=== PATIENT | male | born 1955 | race Native Hawaiian/Other Pacific Islander ===

== ENCOUNTER 2016-05-21 07:08 | Emergency (ER) | payer MEDICARE, OTHER ==
[~2016-05-21] VITALS: Ht 185.4 cm; Wt 137.3 kg
[~2016-05-21 07:08] MED LIST: ACYCLOVIR400 MG PO; AMBIEN 5MG TABLE5 MG PO; AMLODIPINE5 MG PO; ASPIRIN 32325 MG/TAB PO; ASPIRIN E.C. 8181 MG PO; CALCIUM 600600 M2; CALCIUM500 MG PO; CARDI-OMEGA1000 MG PO; CELLCEPT 250MG250 MG PO; CELLCEPT250 MG PO; CORDARONE200 MG/TAB PO; COREG 25MG25 MG/TAB PO; COREG 6.256.25 MG/TA PO; COZAAR 50MG50 MG/TAB PO; COZAAR100 MG PO; DUO-KAPS1 CAP PO; FERATE27 MG PO; FERROUS SU325 MG/TAB PO; FOLIC ACID 11 MG/TA1 PO; GABAPENTIN100 M1 PO; GENGRAF100 MG PO; GENGRAF25 MG PO; INSPRA25 MG PO; LANTUS100 U/ML; LANTUS100 U/ML SC; LANTUS100 U/ML SQ; LASIX 20MG TABL20 MG PO; LASIX 40MG TABL40 MG PO; LEVEMIR SQ; LEVEMIR100 U/ML SC; LIPITOR 10MG10 MG PO; MEXITIL 150MG150 MG PO; MVI; NEORAL100 MG/ML PO; NEORAL25 MG PO; NEPHROCAP PO; NORCO 325 MG-51 TAB PO; NORVASC 5MG5 MG/TAB PO; NOVOLOG 100U100 U/M1 SC; NOVOLOG 100U100 U/M1 SQ; NOVOLOG100 U/ML IV; OMEPRAZOLE D/R20 MG PO; PERCOCET 325 MG1 TA2 PO; PERCOCET 5/321 UDTAB PO; PRAVACHOL 20MG20 MG PO; PRILOSEC 20MG20 MG PO; PROTONIX 40MG T40 MG PO; SINGULAIR 110 MG/TAB PO; VITAMIN C PUR1000 MG PO; VITAMIN C500 MG PO; VITAMIN COMPLEX1 TA1 PO; VITAMIN D; VITAMIN D31000 I1 PO; ZYLOPRIM 100MG100 MG PO; [UNRECOGNIZED DRUG - OTHER]; d3; folic acid; novolog
[2016-05-21 07:12] VITALS: TEMP 98.3
[2016-05-21] MEDS ORDERED: PERCOCET 325 MG1 TA2 PO (09:26)
[2016-05-21 09:31] VITALS: BP 172/91; PULSE 62
== END 2016-05-21 09:53 | disposition home or self-care (01) ==
LOC: COL.ER 07:08
DX: S82.092A Other fracture of left patella, initial encounter for closed fracture (principal); S01.81XA Laceration without foreign body of other part of head, initial encounter; S00.83XA Contusion of other part of head, initial encounter; S80.01XA Contusion of right knee, initial encounter; W01.0XXA Fall on same level from slipping, tripping and stumbling without subsequent striking against object, initial encounter; E11.22 Type 2 diabetes mellitus with diabetic chronic kidney disease; N18.6 End stage renal disease; Z99.2 Dependence on renal dialysis; Z94.0 Kidney transplant status; Z79.4 Long term (current) use of insulin

== ENCOUNTER 2016-05-27 14:29 | Emergency (ER) | payer MEDICARE, OTHER ==
[2016-05-27 14:34] VITALS: BP 141/70; PULSE 66; TEMP 98.3
== END 2016-05-27 15:03 | disposition home or self-care (01) ==
LOC: COL.ER 14:29
DX: Z48.02 Encounter for removal of sutures (principal)

== ENCOUNTER 2019-01-14 16:23 | Emergency (ER) | payer MEDICARE, OTHER ==
[~2019-01-14] VITALS: Ht 185.4 cm; Wt 128.6 kg
[2019-01-14 16:35] VITALS: TEMP 98.5
[2019-01-14 17:23] LABS: HEMOGLOBIN 10.8 g/dl (13.5-18.0); MEAN CELL VOLUME 85 fl (80.0-100.0); MEAN CORPUSCULAR HEMOGLOBIN 26 pg (27.0-31.0); MEAN CORPUSCULAR HGB CONC 31 g/dl (33.0-37.0); MEAN PLATELET VOLUME 9.8 fl (7.4-10.4); PLATELET COUNT 184 K/mm3 (130-400); RED BLOOD COUNT 4.13 M/mm3 (4.20-5.60); REDCELL DISTRIBUTION WIDTH-CV 14.9 % (11.5-14.5)
[2019-01-14 17:29] LABS: HEMATOCRIT 35.2 % (42.0-52.0)
[2019-01-14 17:33] LABS: ALBUMIN 3.7 gm/dL (3.5-5.0); BILIRUBIN,TOTAL 0.6 mg/dL (0.0-1.0); CALCIUM 8.8 mg/dL (8.4-10.2); CREATININE, serum 2.41 (0.66-1.25); POTASSIUM 5.5 mmol/L (3.4-5.0); TOTAL PROTEIN 6.8 gm/dL (6.4-8.2)
[2019-01-14 17:44] LABS: LYMPHOCYTE 8 % (20.0-51.0); NEUTROPHILS 89 % (42.0-75.2); PLATELET ESTIMATE NORMAL (NORMAL)
[2019-01-14 20:27] LABS: CALCIUM 8.7 mg/dL (8.4-10.2); CREATININE, serum 2.45 (0.66-1.25); POTASSIUM 5.6 mmol/L (3.4-5.0)
[2019-01-14 21:07] VITALS: BP 147/63; PULSE 60
== END 2019-01-14 21:07 | disposition short-term general hospital (02) ==
LOC: COL.ER 16:23
PROVIDERS: Family Medicine
DX: R00.1 Bradycardia, unspecified (principal); R55 Syncope and collapse; E11.22 Type 2 diabetes mellitus with diabetic chronic kidney disease; I12.0 Hypertensive chronic kidney disease with stage 5 chronic kidney disease or end stage renal disease; N18.6 End stage renal disease; Z79.82 Long term (current) use of aspirin; Z79.4 Long term (current) use of insulin
CPT/HCPCS: J7030

== ENCOUNTER → 2019-09-16 | Outpatient (CLI) | payer MEDICARE, OTHER | LOC: COL.VAS 10:48 | DX: I10 Essential (primary) hypertension (principal); R60.0 Localized edema; I34.0 Nonrheumatic mitral (valve) insufficiency; I31.3 Pericardial effusion (noninflammatory) ==

== ENCOUNTER 2020-05-27 11:04 | Emergency (ER) | payer MEDICARE, OTHER ==
[~2020-05-27] VITALS: Ht 185.4 cm; Wt 123.6 kg
[~2020-05-27 11:04] MED LIST changes: +LEVEMIR100 U/ML SQ; +NEURONTIN100 MG/CAP; +PREDNISONE 5MG5 MG PO; +PROGRAF 1MG1 MG PO; +PROGRAF5 MG PO; +SEPTRA 400 MG-1 TAB PO; +VELTASSA8.4 GM PO; +ZORTRESS0.5 MG PO
[2020-05-27 11:31] LABS: BASO % 0.1 % (0.0-2.0); EOS % 0.2 % (0-4.0); GRAN # 7.4 (1.4-6.5); GRAN % 86.1 % (42.2-75.2); HEMATOCRIT 28.3 % (42.0-52.0); HEMOGLOBIN 8.7 g/dl (13.5-18.0); LYMPH # 0.4 (1.2-3.4); LYMPH % 4.7 % (20.0-51.0); MEAN CELL VOLUME 79 fl (80.0-100.0); MEAN CORPUSCULAR HEMOGLOBIN 24 pg (27.0-31.0); MEAN CORPUSCULAR HGB CONC 31 g/dl (33.0-37.0); MEAN PLATELET VOLUME 9.4 fl (7.4-10.4); MONO # 0.7 (0.1-0.6); MONO % 7.9 % (1.7-9.3); PLATELET COUNT 202 K/mm3 (130-400); RED BLOOD COUNT 3.57 M/mm3 (4.20-5.60); REDCELL DISTRIBUTION WIDTH-CV 18.5 % (11.5-14.5)
[2020-05-27 11:37] LABS: ALBUMIN 3.6 gm/dL (3.5-5.0); BILIRUBIN,TOTAL 0.5 mg/dL (0.0-1.0); CALCIUM 8.7 mg/dL (8.4-10.2); CREATININE, serum 4.3 (0.66-1.25); POTASSIUM 4.2 mmol/L (3.4-5.0); TOTAL PROTEIN 6.7 gm/dL (6.4-8.2)
[2020-05-27 13:12] LABS: COLLECTION METHOD CLEAN CATCH
[2020-05-27 13:18] LABS: MUCOUS Present /lpf; PH 5 (5-8); SQUAMOUS EPITHELIAL 0-2 /hpf; URINE APPEARANCE Hazy; URINE BACTERIA None Seen /hpf; URINE BILIRUBIN Negative (NEGATIVE); URINE BLOOD Negative (NEGATIVE); URINE COLOR Yellow; URINE GLUCOSE Negative (NEGATIVE); URINE KETONE Negative (NEGATIVE); URINE LEUKOCYTE ESTERASE Negative (NEGATIVE); URINE NITRATE Negative (NEGATIVE); URINE PROTEIN(semi-quant) Negative (NEGATIVE); URINE RBC 0-2 /hpf; URINE UROBILINOGEN Negative (NEGATIVE)
[2020-05-27 16:48] VITALS: BP 138/69; PULSE 55; TEMP 98
== END 2020-05-27 17:11 | disposition short-term general hospital (02) ==
LOC: COL.ER 11:04
PROVIDERS: Emergency Medicine
DX: N17.9 Acute kidney failure, unspecified (principal); D64.9 Anemia, unspecified; R50.9 Fever, unspecified; I10 Essential (primary) hypertension; E11.649 Type 2 diabetes mellitus with hypoglycemia without coma; Z20.822 Contact with and (suspected) exposure to COVID-19; Z94.0 Kidney transplant status; Z87.891 Personal history of nicotine dependence; Z88.5 Allergy status to narcotic agent; Z88.8 Allergy status to other drugs, medicaments and biological substances; Z98.61 Coronary angioplasty status; Z79.82 Long term (current) use of aspirin; Z79.4 Long term (current) use of insulin
CPT/HCPCS: J2543; J7030

== ENCOUNTER 2020-06-07 12:43 | Inpatient (IN) | payer MEDICARE, OTHER ==
[~2020-06-07] VITALS: Ht 185.4 cm; Wt 125.8 kg
[~2020-06-07 12:43] MED LIST changes: -NEURONTIN100 MG/CAP; +NEURONTIN100 MG/CAP PO
[2020-06-07 14:16] LABS: MEAN CELL VOLUME 80 fl (80.0-100.0); MEAN CORPUSCULAR HGB CONC 31 g/dl (33.0-37.0); MEAN PLATELET VOLUME 8.7 fl (7.4-10.4); PLATELET COUNT 166 K/mm3 (130-400); RED BLOOD COUNT 3.76 M/mm3 (4.20-5.60); REDCELL DISTRIBUTION WIDTH-CV 18.3 % (11.5-14.5)
[2020-06-07 14:20] LABS: HEMATOCRIT 30.1 % (42.0-52.0); HEMOGLOBIN 9.2 g/dl (13.5-18.0); MEAN CORPUSCULAR HEMOGLOBIN 24 pg (27.0-31.0)
[2020-06-07 14:21] LABS: ALBUMIN 3.7 gm/dL (3.5-5.0); BILIRUBIN,TOTAL 0.6 mg/dL (0.0-1.0); CALCIUM 8.7 mg/dL (8.4-10.2); CREATININE, serum 4.45 (0.66-1.25); POTASSIUM 4.7 mmol/L (3.4-5.0); TOTAL PROTEIN 6.8 gm/dL (6.4-8.2)
[2020-06-07 14:55] LABS: ANISOCYTOSIS 1+; BAND 45 % (0-10); LYMPHOCYTE 8 % (20.0-51.0); NEUTROPHILS 47 % (42.0-75.2); PLATELET ESTIMATE NORMAL (NORMAL)
[2020-06-07 14:56] LABS: OVALOCYTES 1+; SCHISTOCYTES 1+
[2020-06-07] MEDS ORDERED: IRON TABLETS325 MG PO (16:00)
[2020-06-07] MEDS ORDERED: COZAAR 25MG25 MG/TAB PO (16:01)
[2020-06-07] MEDS ORDERED: SENOKOT S 50 MG1 TAB PO (16:02)
[2020-06-07] MEDS ORDERED: DITROPAN 5MG TAB5 MG PO (16:02)
[2020-06-07] MEDS ORDERED: SODIUM BICARBO650 MG PO (16:03)
[2020-06-07] MEDS ORDERED: FLOMAX 0.40.4 MG/CAP PO (16:04)
[2020-06-07] MEDS ORDERED: VELTASSA8.4 GM PO (16:05)
[2020-06-07 16:45] VITALS: BP 122/51; PULSE 85; TEMP 102.8
[2020-06-07 17:55] LABS: TROPONIN-I 0.209 ng/mL (0.000-0.035)
[2020-06-07 19:11] VITALS: BP 142/38; PULSE 88; TEMP 99.1
[2020-06-07] MEDS ORDERED: LIPITOR 10MG10 MG PO (19:32)
--- NOTE | 2020-06-07 19:41 | NUR ---
Pt admission/assessment completed as much as possible, limited physical assessment completed. pt sleeping upon arrival to room 358. Pt barely responds to verbal stimuli, mumbles and groans for responses. Unable to complete any questions on assessment. Med rec and allergies completed per [facility] discharge records from 1 week ago. Pt has RFA fistula that is present, extremity restriction enforced, LH INT IV that flushes well w/o issue. Pt on room air, breathing is even and unlabored at this time. Pt has hypoactive BS. HRRR, LS cta...as much as this nurse is able to assess. Pulses strong bilaterally, pedal pulses strong. Pt has grayish/dry BLE/intact. Bedros present to place orders and assess pt. Verbal order for tylenol 500 MG PO Q4 PRN, ACHS accu checks/Moderate sliding scale all placed. Pt has kidney rejection meds that we don't carry, order for "pt home med" placed, will bring medication to ER entrance. pt not on tele, no orders for tele at this time. Bedros informed of pt critical trop of 0.209, no new orders at this time. No further needs. Report given to ELISABETH Alcaraz.
[2020-06-07 20:28] VITALS: TEMP 102.8
--- NOTE | 2020-06-07 20:36 | NUR ---
Patient resting in bed. Incontinent of urine. Cares provided. Assessment complete. Lungs diminished throughout. Heart sounds normal. Bowels active x4. Pulses present throughout. No edema noted. INT left wrist without complications. Fistula to right forearm bruit and thrill present. Patient temp elevated and given PRN tylenol. Patient has chills at this time. Patient is drowsy but orientated x4. Bed alarm in place. Call light in reach.
[2020-06-07 20:37] VITALS: BP 125/46; PULSE 90
[2020-06-07 20:48] LABS: COLLECTION METHOD CLEAN CATCH
[2020-06-07 20:54] LABS: MUCOUS Present /lpf; PH 5 (5-8); SQUAMOUS EPITHELIAL 0-2 /hpf; URINE APPEARANCE Hazy; URINE BACTERIA None Seen /hpf; URINE BILIRUBIN Negative (NEGATIVE); URINE BLOOD 2+ (NEGATIVE); URINE COLOR Yellow; URINE GLUCOSE 2+ (NEGATIVE); URINE KETONE Negative (NEGATIVE); URINE LEUKOCYTE ESTERASE Trace (NEGATIVE); URINE NITRATE Negative (NEGATIVE); URINE PROTEIN(semi-quant) 1+ (NEGATIVE); URINE RBC 0-2 /hpf; URINE UROBILINOGEN Negative (NEGATIVE)
[2020-06-07 21:54] VITALS: TEMP 98.6
[2020-06-08] VITALS (13 sets, daily range): BP systolic 96–134; BP diastolic 34–77; PULSE 63–87; TEMP 98.1–103.2
--- NOTE | 2020-06-08 01:01 | NUR ---
Patient febrile. Given PRN tylenol at this time. Chills have returned. Will closely monitor.
--- NOTE | 2020-06-08 01:54 | NUR ---
Patient temp axillary 103.2. Covers removed. Door left open for air flow. Will reassess
--- NOTE | 2020-06-08 04:06 | NUR ---
Resting in bed. Denies needs. Call light in reach.
[2020-06-08 04:26] LABS: HYALINE CAST >12 /lpf
[2020-06-08 05:53] LABS: BASO % 0.2 % (0.0-2.0); GRAN # 9.9 (1.4-6.5); GRAN % 89.4 % (42.2-75.2); LYMPH # 0.7 (1.2-3.4); LYMPH % 6.1 % (20.0-51.0); MEAN CELL VOLUME 82 fl (80.0-100.0); MEAN CORPUSCULAR HGB CONC 30 g/dl (33.0-37.0); MONO # 0.4 (0.1-0.6); MONO % 3.5 % (1.7-9.3); PLATELET COUNT 147 K/mm3 (130-400); RED BLOOD COUNT 3.63 M/mm3 (4.20-5.60); REDCELL DISTRIBUTION WIDTH-CV 18.6 % (11.5-14.5)
[2020-06-08 05:54] LABS: HEMATOCRIT 29.6 % (42.0-52.0); HEMOGLOBIN 8.8 g/dl (13.5-18.0); MEAN CORPUSCULAR HEMOGLOBIN 24 pg (27.0-31.0)
[2020-06-08 06:05] LABS: ALBUMIN 3.6 gm/dL (3.5-5.0); CALCIUM 8.4 mg/dL (8.4-10.2); CREATININE, serum 5.63 (0.66-1.25); PHOSPHOROUS 3.4 mg/dL (2.5-4.5); POTASSIUM 4.8 mmol/L (3.4-5.0)
--- NOTE | 2020-06-08 06:19 | NUR ---
Patient febrile throughout night with chills. All measures taken to decrease temperature. (Tylenol, remove blankets, decrease room temp.) Currently resting in bed with chills. Given Tylenol and only has sheet present on bed. Patient drowsy/lethargic during night. Will continue to monitor. Bed alarm in place and call light in reach.
--- NOTE | 2020-06-08 07:06 | NUR ---
Report given to ELISABETH Freeman
[2020-06-08] MEDS ORDERED: PROGRAF 1MG1 MG PO (08:24)
--- NOTE | 2020-06-08 08:25 | NUR ---
This nurse called pt and verified meds. Updated in med rec, called pharmacy.
--- NOTE | 2020-06-08 10:16 | NUR ---
Initial visit; Patient states he is doing well and thanked Pre Sales Technical Consultant for looking in on him.
--- NOTE | 2020-06-08 12:19 | NUR ---
1000: Pt assessment completed and charted, medications administered per mar, pt very drowsy, arousable to touch and verbal stimuli. Pt falls back asleep very quickly. Pt partially oriented. Pt has RFA fistula, thrill and bruit present. LH INT IV that flushes well w/o issue. Pt on room air, breathing is even and unlabored, LS cta. Pt has very dry/grayish feet, scattered scabs to BLE, bruising to LUE, bruise to rt eye, red but blanchable coccyx. Pt requested barrier cream, applied. HRRR. pt has been running temps throughout evening and low grade temps of 99s this morning. pt has received tylenol PRN per jul for temps. pt was shivering at shift change, room was cold, pt is hot to touch, wrapped in blanket. Pulses strong bilaterally. No further needs expressed. 1215: Pt received ultram per jul for back pain. Down for dialyis at this time.
--- NOTE | 2020-06-08 15:32 | NUR ---
The patient arrived back to his room from dialysis. SW attempted to discuss discharge plan with the patient. The patient was sleeping and would not wake. SW then contacted the patient's , Jose Elias (ph#[phone]), to complete intake. The patient lives in [place] with his . Jose Elias reports that the patient was just discharged on Saturday from [facility] and returned back home with her. No home health services had been set up. She reports that the patient was needing assistance with ADLs and that he has a cane and walker. She states that she was assisting the patient with his ADLs. The patient's PCP is Dr. Cameron De La Cruz and he receives his medications from [facility]. Jose Elias reports no difficulties obtaining his meds. The patient does not have a DPOA-HC in EMR, but Jose Elias believes that the patient does have one completed and that she is the patient's DPOA-HC. Jose Elias reports that she may be interested in home health services upon discharge, but needs to find out more about what is going on with the patient and is diagnosis/prognosis. PT/OT have been ordered. SW to continue to follow.
--- NOTE | 2020-06-08 19:04 | NUR ---
Report with ELISABETH Grossman. Pt resting in bed with eyes closed, resp even and unlabored.
--- NOTE | 2020-06-08 19:10 | NUR ---
Received report from Purnima. Seen patient asleep in bed. He is on room air. Bed alarm on.
--- NOTE | 2020-06-08 20:50 | NUR ---
Patient is still asleep. Awaken him for his medicines. He complains of low back pain with pain score of 8/10. Will give Tramadol. He is too drowsy but he can answer questions.
--- NOTE | 2020-06-08 21:30 | NUR ---
Patient's called and asked for an update. Answered her questions and updated her. She states that patient is usually tired and sleepy after dialysis.
[2020-06-08 22:28] LABS: HEPATITIS B SURFACE ANTIBODY 33.7 (()); HEPATITIS B SURFACE ANTIGEN Negative (Negative); HEPATITIS C VIRUS ANTIBODY Negative (Negative)
[2020-06-09 05:13] VITALS: BP 112/57; PULSE 77; TEMP 98.9
[2020-06-09 07:56] LABS: ALBUMIN 3.3 gm/dL (3.5-5.0); CALCIUM 8.2 mg/dL (8.4-10.2); CREATININE, serum 4.89 (0.66-1.25); PHOSPHOROUS 4.1 mg/dL (2.5-4.5); POTASSIUM 4.3 mmol/L (3.4-5.0)
[2020-06-09 07:57] LABS: BASO % 0.3 % (0.0-2.0); EOS % 0.3 % (0-4.0); GRAN # 5.2 (1.4-6.5); GRAN % 82.7 % (42.2-75.2); LYMPH # 0.6 (1.2-3.4); LYMPH % 9.2 % (20.0-51.0); MEAN CELL VOLUME 80 fl (80.0-100.0); MEAN CORPUSCULAR HGB CONC 30 g/dl (33.0-37.0); MEAN PLATELET VOLUME 8.9 fl (7.4-10.4); MONO # 0.4 (0.1-0.6); MONO % 6.7 % (1.7-9.3); PLATELET COUNT 128 K/mm3 (130-400); RED BLOOD COUNT 3.48 M/mm3 (4.20-5.60); REDCELL DISTRIBUTION WIDTH-CV 18.6 % (11.5-14.5)
[2020-06-09 08:00] VITALS: BP 122/52; PULSE 70; TEMP 98.6
[2020-06-09 08:00] LABS: HEMATOCRIT 27.9 % (42.0-52.0); HEMOGLOBIN 8.4 g/dl (13.5-18.0); MEAN CORPUSCULAR HEMOGLOBIN 24 pg (27.0-31.0)
--- NOTE | 2020-06-09 08:00 | NUR ---
ASSESSED PT, VITALS TAKEN, PT REPORTING PAIN 10/10 IN LOW BACK, PT VERY DROWSY, OPENED EYES TO NAME.
--- NOTE | 2020-06-09 10:46 | NUR ---
UPDATED PT SON
--- NOTE | 2020-06-09 11:45 | NUR ---
PT RETURNED FROM DIALYSIS
[2020-06-09 12:42] VITALS: BP 113/64; PULSE 64; TEMP 97.9
--- NOTE | 2020-06-09 14:16 | NUR ---
Primary nurse was assisted with [id number] patient care by [facility] student Anahi Madrigal and [facility] instructor Archana Bell RN-.
--- NOTE | 2020-06-09 15:46 | NUR ---
PT ASKED FOR SCD'S TO BE REMOVED, PT REPORTS PAIN 4/10 IN LOW BACK/BOTTOM, PT GIVEN COVERED WITH BROWN BLANKET, PT RESTING COMFORTABLY, NO OTHER NEEDS
--- NOTE | 2020-06-09 16:29 | NUR ---
Director Internal Control spoke with SHAKIRA Madrid who would recommend SNF for patient. SW contacted patient's , Jose Elias to review this. Jose Elias states that while she may be open to this, patient has historically not thought therapy would do him any good. Jose Elias does not want referrals sent until they speak with Dr. Camarillo about this. SW will follow up during rounds tomorrow.
[2020-06-09 16:42] VITALS: BP 143/47; PULSE 62; TEMP 97.6
--- NOTE | 2020-06-09 17:54 | NUR ---
PT GENERALLY VERY DROWSY THROUGHOUT THE DAY, REPORTS PAIN IN LOWER BACK AND SACRAL AREA, NO OTHER NEEDS
--- NOTE | 2020-06-09 19:00 | NUR ---
Recieved report from [place]. Seen patient trying to sit up in bed. Assisted him to fix his bedside table so he can eat dinner. No other needs at this time. Bed alarm on.
[2020-06-09 19:28] VITALS: BP 138/48; PULSE 60; TEMP 97.8
--- NOTE | 2020-06-09 21:00 | NUR ---
Patient is drwosy and had been sleeping most of the time. He woke up to take his medicines and went back to sleep.
[2020-06-10 00:29] VITALS: BP 138/70; PULSE 57; TEMP 97.3
[2020-06-10 04:15] VITALS: BP 132/52; PULSE 62; TEMP 97.4
--- NOTE | 2020-06-10 06:03 | NUR ---
Patient has been drowsy most of the time. He wakes up for medicines and to urinate but had been sleepy all night. He denies pain right now. No other needs noted.
[2020-06-10 07:12] LABS: BASO % 0.2 % (0.0-2.0); EOS # 0.1 (0.0-0.7); EOS % 0.9 % (0-4.0); GRAN # 4.4 (1.4-6.5); GRAN % 76.3 % (42.2-75.2); LYMPH # 0.7 (1.2-3.4); LYMPH % 12.6 % (20.0-51.0); MEAN CELL VOLUME 79 fl (80.0-100.0); MEAN CORPUSCULAR HGB CONC 30 g/dl (33.0-37.0); MEAN PLATELET VOLUME 9.3 fl (7.4-10.4); MONO # 0.5 (0.1-0.6); MONO % 9.3 % (1.7-9.3); PLATELET COUNT 145 K/mm3 (130-400); RED BLOOD COUNT 3.57 M/mm3 (4.20-5.60); REDCELL DISTRIBUTION WIDTH-CV 18.1 % (11.5-14.5)
--- NOTE | 2020-06-10 07:17 | NUR ---
when giving report pt wanted to get up to the chair, 2 assist to chair with walker, when in the chair pt had episode of staring off into space, eyes tracking something on the ceiling, not answering questions, then when hand was put on shoulder and pt name was said pt would respond to you and say "i'm just sitting here". basia Grossman noted a similar event happened last night after getting on the bedside commode.
[2020-06-10 07:20] LABS: ALBUMIN 3.4 gm/dL (3.5-5.0); CALCIUM 8.5 mg/dL (8.4-10.2); CREATININE, serum 3.92 (0.66-1.25); POTASSIUM 4.4 mmol/L (3.4-5.0)
[2020-06-10 07:27] LABS: HEMATOCRIT 28.3 % (42.0-52.0); HEMOGLOBIN 8.5 g/dl (13.5-18.0); MEAN CORPUSCULAR HEMOGLOBIN 24 pg (27.0-31.0)
[2020-06-10 07:35] VITALS: BP 117/49; PULSE 68; TEMP 98.3
[2020-06-10 07:36] LABS: PHOSPHOROUS 3.1 mg/dL (2.5-4.5)
--- NOTE | 2020-06-10 08:11 | NUR ---
PT FLAT AFFECT, AOX4, UP WITH ASSSIST AND WALKER, PT TOOK MEDS, FRESH WATER BROUGHT IN, VITALS TAKEN, ASSESSMENT PERFORMED, NO OTHER NEEDS.
--- NOTE | 2020-06-10 08:50 | NUR ---
pt taken to dialysis via wheelchair w/ chart. pat informed of pt staring off in am
[2020-06-10 12:53] VITALS: BP 99/45; PULSE 66; TEMP 97.4
--- NOTE | 2020-06-10 13:00 | NUR ---
SAW LOW BP ON VITAL SET, PT DENIES DIZZINESS, APPEARS IN GOOD SPIRITS, MOST ALERT I HAVE SEEN PT TODAY
--- NOTE | 2020-06-10 14:44 | NUR ---
Java Application Engineer collaborated with Dr. Camarillo about discharge plan. Dr. Camarillo would like to have a consult for [facility]. OLU contacted Kaylynn [facility] Director to give referral. SW contacted patient's , Jose Elias to provide update. SW will continue to follow.
[2020-06-10 15:50] VITALS: BP 132/78; PULSE 66; TEMP 97.7
--- NOTE | 2020-06-10 15:54 | NUR ---
PT RETURNED FROM MRI, SLEEPING IN ROOM,
--- NOTE | 2020-06-10 16:46 | NUR ---
PT REFUSING DINNER, WILL NOT GIVE INSULIN
--- NOTE | 2020-06-10 17:26 | NUR ---
PT DROWSY, PT ANSWERS ORIENTATION QUESTIONS APPROPRIATELY, PT HAD DIALYSIS TODAY, PT STAND BY ASSIST IN THE ROOM, PT MORE CHEERFUL TODAY, PT MEDICATIONS GIVEN AND EDUCATED ON, PT REFUSING DINNER, NO OTHER NEEDS
--- NOTE | 2020-06-10 18:29 | NUR ---
PT EDUCATED ON NEED TO START 24HR URINE, CONTAINER IN ROOM
[2020-06-10 19:43] VITALS: BP 125/32; PULSE 64; TEMP 98
--- NOTE | 2020-06-10 20:45 | NUR ---
Pt 24 hour urine was started at 2030. The first void was wasted and will collect all future voids. Pt was educated about everything that we will be doing. He has his call light within reach.
[2020-06-11] VITALS (7 sets, daily range): BP systolic 128–153; BP diastolic 39–64; PULSE 55–71; TEMP 97.5–98.9
--- NOTE | 2020-06-11 | NUR ---
Pt has had no complaints during the night. Pt did get up from the bed to chair a couple of times to get comfortable. Pt did have some complaints earlier in the shift about his bottom. Barrier cream and a dressing was applied at this time and pt stated that this was much better. Pt has his call light within reach and his bed is in lowest position.
--- NOTE | 2020-06-11 06:20 | NUR ---
Pt is back in bed from his chair. Pt was reminded that whenever he uses the restroom to let us know since we are collecting his 24 hour urine. Pt has his call light within reach and has no concerns at this time.
[2020-06-11 07:44] LABS: EOS % 0.6 % (0-4.0); GRAN # 2.4 (1.4-6.5); GRAN % 73.5 % (42.2-75.2); LYMPH # 0.4 (1.2-3.4); LYMPH % 11.7 % (20.0-51.0); MEAN CELL VOLUME 81 fl (80.0-100.0); MEAN CORPUSCULAR HGB CONC 31 g/dl (33.0-37.0); MEAN PLATELET VOLUME 10.6 fl (7.4-10.4); MONO # 0.4 (0.1-0.6); PLATELET COUNT 140 K/mm3 (130-400); RED BLOOD COUNT 3.29 M/mm3 (4.20-5.60)
[2020-06-11 07:49] LABS: HEMATOCRIT 26.5 % (42.0-52.0); HEMOGLOBIN 8.1 g/dl (13.5-18.0); MEAN CORPUSCULAR HEMOGLOBIN 25 pg (27.0-31.0)
--- NOTE | 2020-06-11 08:32 | NUR ---
Pt sleeping upon entry, easily awakened. Assisted to restroom. No C/O pain at this time. Shift assessments complete, left Pt sitting in recliner, alarm on.
[2020-06-11 09:11] LABS: ALBUMIN 3.4 gm/dL (3.5-5.0); CALCIUM 8.5 mg/dL (8.4-10.2); CREATININE, serum 3.17 (0.66-1.25); PHOSPHOROUS 3.6 mg/dL (2.5-4.5); POTASSIUM 4.3 mmol/L (3.4-5.0)
[2020-06-11 20:59] LABS: CREATININE, serum 3.17 (0.66-1.25); URINE TOTAL VOLUME 650 mL
[2020-06-11 21:38] LABS: URINE CREATININE CLEARANCE 9.8 mL/min (97-137)
--- NOTE | 2020-06-11 23:00 | NUR ---
Pt is currently sleeping in bed. Pt did wake up to take night medications. Pt bottom was cleaned and barrier cream a dressing on his bottom changed. Pt stated that he has no pain at this time and no other concerns at this time. Pt has his call ligth within reach and his bed is in lowet position.
--- NOTE | 2020-06-12 02:27 | NUR ---
Pt sleeping in bed. He has his call light within reach and bed is in lowet position.
[2020-06-12 03:44] VITALS: BP 146/54; PULSE 67; TEMP 97.9
[2020-06-12 06:59] LABS: BASO % 0.3 % (0.0-2.0); EOS % 0.7 % (0-4.0); GRAN # 1.9 (1.4-6.5); GRAN % 65.5 % (42.2-75.2); LYMPH # 0.5 (1.2-3.4); LYMPH % 15.9 % (20.0-51.0); MEAN CELL VOLUME 81 fl (80.0-100.0); MEAN CORPUSCULAR HGB CONC 30 g/dl (33.0-37.0); MEAN PLATELET VOLUME 9.8 fl (7.4-10.4); MONO # 0.5 (0.1-0.6); MONO % 16.6 % (1.7-9.3); PLATELET COUNT 151 K/mm3 (130-400); RED BLOOD COUNT 3.55 M/mm3 (4.20-5.60); REDCELL DISTRIBUTION WIDTH-CV 17.6 % (11.5-14.5)
[2020-06-12 07:08] LABS: HEMATOCRIT 28.8 % (42.0-52.0); HEMOGLOBIN 8.5 g/dl (13.5-18.0); MEAN CORPUSCULAR HEMOGLOBIN 24 pg (27.0-31.0)
[2020-06-12 07:11] LABS: ALBUMIN 3.5 gm/dL (3.5-5.0); CALCIUM 8.5 mg/dL (8.4-10.2); CREATININE, serum 3.57 (0.66-1.25); POTASSIUM 4.3 mmol/L (3.4-5.0)
[2020-06-12 07:45] VITALS: BP 158/60; PULSE 76; TEMP 98.3
--- NOTE | 2020-06-12 10:47 | NUR ---
Pt awake and alert upon entry to room, in bed. No C/O pain at this time. Shift assessments complete, left Pt call light in reach, bed in lowest position.
[2020-06-12 11:27] VITALS: BP 162/55; PULSE 71; TEMP 98
[2020-06-12 17:14] VITALS: BP 92/76; PULSE 62; TEMP 97.5
[2020-06-12 17:17] VITALS: BP 143/55
[2020-06-12 19:39] VITALS: BP 134/54; PULSE 59; TEMP 97.5
--- NOTE | 2020-06-12 21:41 | NUR ---
Patient laying in bed resting upon enter the room. Patient denies pain or discomfort at this time. T-pad to his back in place. All scheduled meds given per JUL. Call light within reach. Patient denies any needs at this time.
[2020-06-13 00:22] VITALS: BP 145/60; PULSE 63; TEMP 98.2
[2020-06-13 05:17] VITALS: BP 140/52; PULSE 63; TEMP 97.4
--- NOTE | 2020-06-13 06:29 | NUR ---
Patient slept well throughout the night. No c/o pain or discomfort. No acute distress noted. Call light within reach. Patient denies any needs this morning.
--- NOTE | 2020-06-13 08:00 | NUR ---
Pt sitting up in chair, assisted with phone call, denies further needs. Call light in reach.
[2020-06-13 08:57] VITALS: BP 135/68; PULSE 70
--- NOTE | 2020-06-13 09:05 | NUR ---
Assessment complete. Pt resting in bed, drowsy but alert to stimuli, oriented x 3. Pt reports pain to low back/coccyx 8 out of 10, PRN pain medication administered per pt's request prior to goint to dialysis. Saline lock IV to left hand without s/s of complications. Slight excoriation noted to coccyx area. No further needs reported. Call light in reach.
--- NOTE | 2020-06-13 09:15 | NUR ---
Pt up to WC and taken to dialysis room accompanied by ELISABETH Ocampo.
[2020-06-13 09:37] LABS: MEAN CELL VOLUME 79 fl (80.0-100.0); MEAN CORPUSCULAR HGB CONC 30 g/dl (33.0-37.0); MEAN PLATELET VOLUME 9.3 fl (7.4-10.4); PLATELET COUNT 163 K/mm3 (130-400); RED BLOOD COUNT 3.55 M/mm3 (4.20-5.60); REDCELL DISTRIBUTION WIDTH-CV 17.6 % (11.5-14.5)
[2020-06-13 09:39] LABS: HEMOGLOBIN 8.5 g/dl (13.5-18.0); MEAN CORPUSCULAR HEMOGLOBIN 24 pg (27.0-31.0)
[2020-06-13 09:48] LABS: ALBUMIN 3.5 gm/dL (3.5-5.0); CALCIUM 8.7 mg/dL (8.4-10.2); CREATININE, serum 3.84 (0.66-1.25); PHOSPHOROUS 3.4 mg/dL (2.5-4.5); POTASSIUM 4.3 mmol/L (3.4-5.0)
[2020-06-13 10:02] LABS: BAND 1 % (0-10); LYMPHOCYTE 18 % (20.0-51.0); METAMYELOCYTE 3 % (0-0); NEUTROPHILS 63 % (42.0-75.2)
[2020-06-13 10:03] LABS: PLATELET ESTIMATE NORMAL (NORMAL)
[2020-06-13 10:05] LABS: OVALOCYTES 1+
[2020-06-13 10:06] LABS: ANISOCYTOSIS 1+; HYPOCHROMIA 1+; SCHISTOCYTES 1+
[2020-06-13 14:07] VITALS: BP 142/48; PULSE 71; TEMP 99.2
--- NOTE | 2020-06-13 15:52 | NUR ---
Sewing Supervisor spoke with Kaylynn, [facility] Director who advised they will accept patient and plan is for patient to discharge to [facility] this afternoon. SW contacted patient's , Jose Elias who to provide update on discharge plan. No additional needs at this time.
[2020-06-13] MEDS ORDERED: RETACRIT10000 UNIT IV (15:55)
[2020-06-13] MEDS ORDERED: OMNICEF 300MG300 MG PO (15:55)
[2020-06-13] MEDS ORDERED: SODIUM BICARBO650 MG PO (15:56)
[2020-06-13] MEDS ORDERED: ULTRAM 50MG TAB50 MG PO (15:56)
[2020-06-13] MEDS ORDERED: ZEMPLAR1 MCG PO (15:58)
[2020-06-13 16:10] VITALS: BP 155/57; PULSE 64; TEMP 99.3
[2020-06-13 16:23] VITALS: BP 155/57; PULSE 64; TEMP 99.3
--- NOTE | 2020-06-13 17:45 | NUR ---
Report called to ELISABETH Vogt. IV discontinued from left hand with tip intact. Pt discharged to Inpatient Rehab rm 335 via WC accompanied by this nurse and EARLY BREASTFEEDING CARE SPECIALIST. Pt's belongings and discharge packet transported with pt.
== END 2020-06-13 17:54 | DRG 864 ==
LOC: COL.ER 12:43 → MEDICAL 15:52
PROVIDERS: Emergency Medicine; ADMIT Internal Medicine Nephrology
PROC: 5A1D70Z Performance of Urinary Filtration, Intermittent, Less than 6 Hours Per Day (ICD-10-PCS; principal; 2020-06-08)
DX: R50.9 Fever, unspecified (principal); Z94.0 Kidney transplant status; E11.51 Type 2 diabetes mellitus with diabetic peripheral angiopathy without gangrene; E11.40 Type 2 diabetes mellitus with diabetic neuropathy, unspecified; E11.22 Type 2 diabetes mellitus with diabetic chronic kidney disease; D63.1 Anemia in chronic kidney disease; I12.9 Hypertensive chronic kidney disease with stage 1 through stage 4 chronic kidney disease, or unspecified chronic kidney disease; N18.9 Chronic kidney disease, unspecified; Z20.822 Contact with and (suspected) exposure to COVID-19; K21.9 Gastro-esophageal reflux disease without esophagitis; I25.10 Atherosclerotic heart disease of native coronary artery without angina pectoris; M48.061 Spinal stenosis, lumbar region without neurogenic claudication; R91.1 Solitary pulmonary nodule; E66.9 Obesity, unspecified; M10.9 Gout, unspecified; E78.5 Hyperlipidemia, unspecified; Z79.4 Long term (current) use of insulin; Z79.52 Long term (current) use of systemic steroids; Z79.82 Long term (current) use of aspirin; Z86.16 Personal history of COVID-19; Z87.891 Personal history of nicotine dependence; Z85.528 Personal history of other malignant neoplasm of kidney; Z98.1 Arthrodesis status; Z88.8 Allergy status to other drugs, medicaments and biological substances
CPT/HCPCS: J1644; J1815; J2916; J3010; J7030; J7507; J7512; Q5106

== ENCOUNTER 2020-06-13 15:13 | Inpatient (IN) | payer MEDICARE, OTHER ==
[~2020-06-13] VITALS: Ht 185.5 cm; Wt 122.2 kg
[~2020-06-13 15:13] MED LIST changes: +COZAAR 25MG25 MG/TAB PO; +DITROPAN 5MG TAB5 MG PO; +FLOMAX 0.40.4 MG/CAP PO; +IRON TABLETS325 MG PO; +SENOKOT S 50 MG1 TAB PO; +SODIUM BICARBO650 MG PO
[2020-06-13] MEDS ORDERED: RETACRIT10000 UNIT IV (15:55)
[2020-06-13] MEDS ORDERED: OMNICEF 300MG300 MG PO (15:55)
[2020-06-13] MEDS ORDERED: SODIUM BICARBO650 MG PO (15:56)
[2020-06-13] MEDS ORDERED: ULTRAM 50MG TAB50 MG PO (15:56)
[2020-06-13] MEDS ORDERED: ZEMPLAR1 MCG PO (15:58)
--- NOTE | 2020-06-13 19:00 | NUR ---
RECEIVED CHANGE OF SHIFT REPORT FROM DAY SHIFT NURSE.
[2020-06-13 19:25] VITALS: BP 136/46; PULSE 64; TEMP 97.5
--- NOTE | 2020-06-13 20:00 | NUR ---
REPORTS HAD BM 2 DAYS AGO
--- NOTE | 2020-06-13 20:15 | NUR ---
PT TRANSFERRED BY MEDICAL RN AND ASSOCIATE AUTOMATION ENGINEER TO ROOM 335 AROUND 1720. PT ORIENTED TO ROOM AND REHAB BY ASSOCIATE AUTOMATION ENGINEER. PT'S MED REC AND CARE PLAN ARE COMPLETED. PT GIVEN 2 UNITS OF INSULIN AFTER DINNER. PT VOIDED USING URINAL AND GOT INTO BED. EDCUATED PT AND FAMILY THAT IT IS NECESSARY TO CALL WHEN GETTING UP SO THAT STAFF CAN ASSIST.
[2020-06-14 05:08] VITALS: BP 146/72; PULSE 57; TEMP 97.2
--- NOTE | 2020-06-14 07:35 | NUR ---
CHANGE OF SHIFT REPORT GIVEN TO DAY SHIFT NURSEALMA.
--- NOTE | 2020-06-14 08:35 | NUR ---
Patient taking a shower with OT at this time. Patient very quiet was able to answer questions. A&O X 4. Patient tolerated breakfast well. Denies questions at this time.
--- NOTE | 2020-06-14 10:58 | NUR ---
The patient is new to [facility]. Registered Radiologic Technologist met with the patient to complete intake. The patient lives in [place] with his , Jose Elias. The patient has a cane, walker, and CPAP. The patient gets his CPAP supplies from [facility]. The patient's PCP is Dr. De La Cruz and [place] [facility] The patient does not have advanced directives in the EMR. The patient had no questions or concerns at this time.
[2020-06-14 17:05] VITALS: BP 154/53; PULSE 59; TEMP 98.1
--- NOTE | 2020-06-14 19:30 | NUR ---
RECEIVED CHANGE OF SHIFT REPORT FROM DAY SHIFT NURSE.
--- NOTE | 2020-06-14 19:52 | NUR ---
Patient resting in bed at this time, call light in reach and bed alarm set. Patient attended all therapies this shift. See new order for Fistulagram that patient will have tomorrow at 8 AM. This procedure should take approximatly one hour per radiology. Patient will be NPO after midnight for this procedure and an IV will need to be placed to patient's left arm. See SCD order and SCD's were placed on patient. Patient has a Stage II to his right buttocks that has a bloody bedding and is approximatly 2 1/2 cm x 1 cm. This nurse applied Aquacel AG to the area and secured with a mepilex pad. Patient tolerated well. Patient has an egg crate cushion placed on bed to help with skin integrety. Patient takes pills whole with water. He has a Lidocaine patch placed to his left lower back. Patient denies questions at this time. This nurse reported off to the night nurse.
--- NOTE | 2020-06-14 20:00 | NUR ---
OBSERVED NEEDS ASSIST WHEN REPOSITIONING FROM LAYING TO SITTING AT SIDE OF BED. DENIES ANY NEEDS OR COMPLAINTS. BED ALARM ON.
--- NOTE | 2020-06-14 20:07 | NUR ---
CONSENT FORM SIGNED BY PATIENT'S SPOUSE/DPOA FOR SCHEDULED FISTULAGRAM FOR 06/15 @ 0800 WITH NO FURTHER QUESTIONS OR CONCERNS REPORTED AT THIS TIME.
--- NOTE | 2020-06-15 01:03 | NUR ---
PATIENT UP TO BATHROOM WITH ASST X1/CGA W/GB&WW THEN UP IN CHAIR. NO OTHER NEEDS REPORTED AT THIS TIME. DID NOT WANT TO GO BACK TO BED AT THIS TIME. CHAIR ALARM ON WHILE UP IN CHAIR.
[2020-06-15 05:20] VITALS: BP 156/62; PULSE 61; TEMP 98.1
--- NOTE | 2020-06-15 06:10 | NUR ---
ATTEMPT TO START PERIPHERAL IV SITE FOR SCHEDULED FISTULAGRAM FOR THIS MORNING, UNSUCCESSFUL VENIPUNCTURE X1 ATTEMPT WITH DIFFICULTY, DID NOT ATTEMPT ANOTHER VENIPUNCTURE DUE TO LIMITED IV SITES BEING AVAILABLE WITH RUE RESTRICTION.
--- NOTE | 2020-06-15 07:22 | NUR ---
CHANGE OF SHIFT REPORT GIVEN TO DAY SHIFT NURSEALMA.
[2020-06-15 08:16] VITALS: BP 162/73; PULSE 63
--- NOTE | 2020-06-15 08:17 | NUR ---
SEE MERGE DOCUMENTATION FOR MEDICATION ADMINISTRATION TIMES AND INTRA/POST PROCEDURE SEDATION ASSESSMENTS.
[2020-06-15 10:02] VITALS: BP 169/55; PULSE 57; TEMP 98.5
--- NOTE | 2020-06-15 11:51 | NUR ---
Patient went to his fistulagram procedure at 8:00 AM this morning. No intervention was initiated per report from Morris. Patient was returned to his room and VSS. Patient was not to have any heavy lifting with the right arm for the next two hours and to keep it light the rest of the day. Patient received his breakfast upon return to his room. He denied any need for pain meds at that time. Will continue to monitor.
--- NOTE | 2020-06-15 14:28 | NUR ---
Call left for Dr. Camarillo to return my call. Need clarification on two of the patient's meds. Awaiting a return call.
--- NOTE | 2020-06-15 15:34 | NUR ---
On Call Pharmacy Technician met with the patient to review the Team Conference Note. The team recommends discharge home on 06/22 with home health services. SW provided Medicare.gov's list of home health agencies. The patient has had home health in the past but does not remember which agency provided the services. He requested this SW contact his . OLU to contact the patient's regarding HHS. There are no additional needs at this time.
--- NOTE | 2020-06-15 15:59 | NUR ---
OLU contacted the patient's regarding a family meeting Saturday, 06/17 at 10:15 am. She was in [place]. OLU collaborated the above information with ALICIA Chaidez Director.
[2020-06-15 17:40] VITALS: BP 162/52; PULSE 57; TEMP 97.9
--- NOTE | 2020-06-15 20:13 | NUR ---
Dr. Camarillo stopped by to report that patient would not be getting dialysis today, but would have dialysis tomorrow and Saturday. This was communicated to therapy and to the pharmacy so that therapies could be changed per this order. Patient was able to complete all his therapies for today.
--- NOTE | 2020-06-15 20:16 | NUR ---
Chris Melgoza at Speech therapy patient's BIMS was completed today.
[2020-06-16 04:57] VITALS: BP 170/59; PULSE 58; TEMP 97.7
--- NOTE | 2020-06-16 05:13 | NUR ---
PT STOOD UP TO VOID W/O CALLING FOR ASSIST. BED ALARM SOUNDING. HAS BEEN REMINDED TO CALL FOR ASSIST BEFORE GETTING UP. PT AGREE. PT C/O BACK PAIN. LEVEL 7/10. SEE MAR FOR ULTRAM GIVEN. HAS KPAD TO BACK AT THIS TIME. ALSO HAS ARM NEUROPATHY. CALL LIGHT AT BEDSIDE. BED ALARM SET.
--- NOTE | 2020-06-16 08:44 | NUR ---
PT SLEEPING IN BED AT BEDSIDE SHIFT REPORT. BE IN LOW, ALARM ON. PT REPORTS 7/10 PAIN THIS AM AFTER TRAMADOL GIVEN AT 0513. PT REFUSED LIDOCAINE PATCH, STATING IT DOES NOT HELP.
--- NOTE | 2020-06-16 09:42 | NUR ---
Follow-up visit attempt; Nurse with patient, Creative Writing English Professor left a prayer card for patient who was indisposed.
--- NOTE | 2020-06-16 13:19 | NUR ---
Admission QIM scores were reviewed by the team. Code of 4 chosen for oral hygiene was determined by team discussion to be the most usual performance before interventions for this patient during the assessment period. Code of 3 chosen for toilet hygiene was determined by team discussion to be the most usual performance for this patient during the assessment period. Code of 3 chosen for toileting transfers was determined by team discussion to be the most usual performance for this patient during the assessment period. Code of 4 chosen for sit to lying was determined by team discussion to be the most usual performance for this patient during the assessment period. Code of 3 chosen for lying to sitting on side of bed was determined by team discussion to be the most usual performance for this patient during the assessment period. Code of 3 for sit to stand was determined by team discussion to be the most usual performance for this patient during the assessment period.--Kaylynn Pinto, PD
[2020-06-16 14:23] LABS: MEAN CELL VOLUME 79 fl (80.0-100.0); MEAN CORPUSCULAR HGB CONC 30 g/dl (33.0-37.0); MEAN PLATELET VOLUME 8.9 fl (7.4-10.4); PLATELET COUNT 211 K/mm3 (130-400); REDCELL DISTRIBUTION WIDTH-CV 17.9 % (11.5-14.5)
[2020-06-16 14:26] LABS: HEMATOCRIT 28.5 % (42.0-52.0); HEMOGLOBIN 8.5 g/dl (13.5-18.0); MEAN CORPUSCULAR HEMOGLOBIN 24 pg (27.0-31.0)
[2020-06-16 14:34] LABS: ALBUMIN 3.6 gm/dL (3.5-5.0); CALCIUM 8.9 mg/dL (8.4-10.2); CREATININE, serum 3.59 (0.66-1.25); PHOSPHOROUS 2.9 mg/dL (2.5-4.5); POTASSIUM 4.9 mmol/L (3.4-5.0)
--- NOTE | 2020-06-16 14:38 | NUR ---
PT RECEIEVED PRN TRAMADOL WTIH APAP THIS AFTERNOON PRIOR TO DIALYSIS. AIR MATTRESS APPLIED TO PT'S BED FOR COMFORT AND SKIN INTEGRITY. PT COCCYX DRSG WAS REMOVED PARTLY. UNABLE TO REMOVE TOTALLY WITHOUT BREAKING SKIN, SALINE UTILIZED AND STILL UNABLE. DRSG CUT AROUND SECTION UNABLE TO REMOVE AND BARRIER OINTMENT APPLIED TO SURROUNDING AREA ALONG WITH NEW MEPILEX. MEPILEX LEFT IN PLACE TO SCABBED AREA ABOUT QUATER SIZED.
[2020-06-16 14:57] LABS: BAND 6 % (0-10); LYMPHOCYTE 9 % (20.0-51.0); METAMYELOCYTE 1 % (0-0); NEUTROPHILS 70 % (42.0-75.2)
[2020-06-16 14:59] LABS: ANISOCYTOSIS 1+; MICROCYTOSIS 1+; OVALOCYTES 2+
[2020-06-16 15:00] LABS: BURR CELLS 1+; HELMET CELLS 1+; SCHISTOCYTES 1+; TEAR DROP CELLS 1+
[2020-06-16 18:00] VITALS: BP 152/56; PULSE 64; TEMP 97.3
--- NOTE | 2020-06-16 19:41 | NUR ---
PT ASLEEP IN BED. SPOUSE IN ROOM, TALKING ON PHONE. DENIES ANY NEEDS AT THIS TIME. REPORT RECEIVED FROM DAY SHIFT NURSE.
--- NOTE | 2020-06-16 19:53 | NUR ---
PT RECIEVED ONE DOSE OF PRN TRAMADOL WITH APAP AROUND NOON, AIR MATTRESS APPLIED TO BED.
--- NOTE | 2020-06-17 00:32 | NUR ---
PT TAKES PM MEDS WITHOUT DIFFICULTY. FLAT AFFECT. STANDS AT BEDSIDE TO USE URINAL. BRUIT PRESENT IN R FA. CALL LIGHT IN REACH. BED ALARM ON.
--- NOTE | 2020-06-17 01:26 | NUR ---
CALLS FOR ASSIST TO USE URINAL. TRANSFERS TO CHAIR AND WARM BLANKETS X2 GIVEN. CALL LIGHT IN REACH.
[2020-06-17 05:51] VITALS: BP 163/60; PULSE 60; TEMP 97.6
--- NOTE | 2020-06-17 06:36 | NUR ---
PT HAS HAD A GOOD NIGHT. AWAKENS TO VERBAL STIMULI THIS AM. TAKES MED WITHOUT PROBLEMS. DENIES ANY C/O DISCOMFORT. HOB ELEVATED PER PT REQUEST. BED ALARM ON. CALL LIGHT AT REACH.
--- NOTE | 2020-06-17 08:02 | NUR ---
Patient sitting up in recliner, alert and oriented x 3. Assessment complete. Fistula to right forarm with bruit and thrill present. Denies pain at this time. Denies further needs at this time.
[2020-06-17 08:37] LABS: PATHOLOGY DIFF REVIEW OK
--- NOTE | 2020-06-17 09:10 | NUR ---
Patient ambulating with therapy
--- NOTE | 2020-06-17 10:45 | NUR ---
A Family Conference was conducted with pt & pt's . Also present was PT, OT, & Senior Principal Architect. The therapists explained how pt has been functioning & making good progress. Informed them of d/c for 06/22/20 w/ recommendations for home health PT/OT, which they were fine w/. asked a few questions which the team answered. Pt & are pleased with progress & care pt is receiving.
--- NOTE | 2020-06-17 14:28 | NUR ---
Manager Helpdesk met with the patient follow up before the weekend. The patient had no questions or concerns at this time. The patient ask for a warm blanket, SW brought the patient a warm blanket.
[2020-06-17 16:15] VITALS: BP 136/54; PULSE 64; TEMP 98.4
--- NOTE | 2020-06-17 18:16 | NUR ---
Patient has done well throughout the day. Minimal needs. Encouraged patient to increase activity and call kitchen for meals. Denies pain throughout the day. Denies further needs at this time. Will report off to rn shift mgr.
--- NOTE | 2020-06-17 21:30 | NUR ---
PT IN BED EASILY AWAKENED. PT DENIES PAIN OR DISCOMFORT. NO NEEDS AT THIS TIME, CALL LIGHT WITHIN REACH AND BED ALARM ON.
[2020-06-18 05:34] VITALS: BP 169/60; PULSE 63; TEMP 97.6
--- NOTE | 2020-06-18 06:18 | NUR ---
PT SLEPT/RESTED WELL DURING THE NIGHT. NO ISSUES OR CONCERNS NOTED OR VOICED BY PT. PT WENT TO DIALYSIS AT 0610 THIS AM.
[2020-06-18 07:05] LABS: ALBUMIN 3.5 gm/dL (3.5-5.0); CALCIUM 8.9 mg/dL (8.4-10.2); CREATININE, serum 3.18 (0.66-1.25); PHOSPHOROUS 2.8 mg/dL (2.5-4.5); POTASSIUM 4.4 mmol/L (3.4-5.0)
[2020-06-18 07:07] LABS: MEAN CELL VOLUME 80 fl (80.0-100.0); MEAN CORPUSCULAR HGB CONC 30 g/dl (33.0-37.0); MEAN PLATELET VOLUME 9.2 fl (7.4-10.4); PLATELET COUNT 247 K/mm3 (130-400); RED BLOOD COUNT 3.93 M/mm3 (4.20-5.60); REDCELL DISTRIBUTION WIDTH-CV 18.4 % (11.5-14.5)
--- NOTE | 2020-06-18 07:12 | NUR ---
PT IN DIALYSIS UPON SHIFT REPORT.
[2020-06-18 07:18] LABS: HEMATOCRIT 31.5 % (42.0-52.0); HEMOGLOBIN 9.4 g/dl (13.5-18.0); MEAN CORPUSCULAR HEMOGLOBIN 24 pg (27.0-31.0)
[2020-06-18 08:54] LABS: LYMPHOCYTE 22 % (20.0-51.0); NEUTROPHILS 54 % (42.0-75.2); NUCLEATED RED BLOOD CELL 3 (0-6); PLATELET ESTIMATE NORMAL (NORMAL)
--- NOTE | 2020-06-18 09:13 | NUR ---
Patient tolerated HD tx, removed 300 mL of fluid. Next treatment planned for Saturday06/20/20 after therapies.
--- NOTE | 2020-06-18 14:58 | NUR ---
LACEY DRSG CHANGED TO SACRAL EXCORIATION TO RT BUTTOCKS, BARRIER CREAM APPLIED WELL. EDUCATED PT ON TURNING AND REPOSITIONING OFTEN TO HELP HEALING. PT HAS AIR MATTRESS AND CUSHION IN CHAIR. PT REPORTED FEELING LIGHT HEADED TODAY AFTER DIALYSIS, BP CHECKED AND WAS WNL AND SO WAS BLOOD SUGAR. PT AGREED TO WORK WITH THERAPY. THERAPISTS AWARE OF HOW HE WAS FEELING. PT RECEIEVED PRN TRAMADOL AND APAP ONCE THIS AM FOR 7/10 PAIN LEVEL.
[2020-06-18 16:58] VITALS: BP 150/58; PULSE 59; TEMP 97.9
--- NOTE | 2020-06-18 19:17 | NUR ---
PT ASLEEP IN BED ON RIGHT SIDE. BED ALARM ON. IN TO VISIT. REPORT FROM DAY SHIFT NURSE.
--- NOTE | 2020-06-18 21:12 | NUR ---
SHIFT ASSESSMENT COMPLETE. RESTING IN BED WITH EYES CLOSED. ANSWERS TO VERBAL STIMULI. TAKES PM MEDS WITHOUT ANY DIFFICULTY. REQ AND GIVEN ULTRAM AND TYLENOL FOR SOME GENERAL DISCOMFORT. REPOSITIONS SELF IN BED. BED ALARM ON. CALL LIGHT IN REACH.
--- NOTE | 2020-06-18 21:15 | NUR ---
PT REFUSED TO WEAR SCD'S AT THIS TIME.
[2020-06-19 05:48] VITALS: BP 169/54; PULSE 59; TEMP 97.3
--- NOTE | 2020-06-19 07:04 | NUR ---
PT RESTING QUIETLY IN BED. REPORT GIVEN TO DAY SHIFT NURSE.
--- NOTE | 2020-06-19 08:00 | NUR ---
Pt ambulated 48ft and then had to rest due to feeling light headed, went another 22ft, rest and then 30 ft
--- NOTE | 2020-06-19 09:00 | NUR ---
Pt doing well this morning with some complaint of lower back pain. States the lidocaine patch does not help. He has been up and ambulated x1 assist. He did have to sit every 22-30ft due to feeling a little dizzy. Attempted to take BP while standing, but patient was not able to stand for the whole time. No other needs, will continue to monitor.
--- NOTE | 2020-06-19 11:02 | NUR ---
Pt was able to ambulated >150 feet without stopping. He did well with no complaints of feeling light headed
[2020-06-19 16:29] VITALS: BP 129/60; PULSE 77; TEMP 98.2
--- NOTE | 2020-06-19 18:50 | NUR ---
RECEIVED CHANGE OF SHIFT REPORT FROM DAY SHIFT NURSE. BED ALARM ON.
--- NOTE | 2020-06-19 20:00 | NUR ---
BED ALARM ON. DENIES ANY NEEDS AT THIS TIME.
[2020-06-20 05:24] VITALS: BP 152/55; PULSE 63; TEMP 97.3
--- NOTE | 2020-06-20 06:39 | NUR ---
CHANGE OF SHIFT REPORT GIVEN TO DAY SHIFT NURSEAUGUSTO.
--- NOTE | 2020-06-20 07:55 | NUR ---
Patient sitting up in recliner, Alert and oriented x3. Assessment complete. Denies pain at this time. Fistula to RUE bruit and thrill present. Denies furhter needs at this time.
[2020-06-20] MEDS ORDERED: NEURONTIN300 MG/CAP PO (10:56)
[2020-06-20] MEDS ORDERED: ULTRAM 50MG TAB50 MG PO (10:57)
--- NOTE | 2020-06-20 11:37 | NUR ---
OLU contacted the patient's , Jose Elias, to follow up on preference for home health. Jose Elias was interested in [facility] or [facility]. She was agreeable for OLU to send a referral to [facility]. OLU contacted and faxed a referral to Mile at [facility]. Awaiting screen.
--- NOTE | 2020-06-20 12:20 | NUR ---
Patient to dialysis by wheelchair.
--- NOTE | 2020-06-20 12:39 | NUR ---
Mile, at [facility], reports that they are able to accept the patient for services.
[2020-06-20 13:53] LABS: MEAN CELL VOLUME 82 fl (80.0-100.0); MEAN CORPUSCULAR HGB CONC 29 g/dl (33.0-37.0); MEAN PLATELET VOLUME 9.1 fl (7.4-10.4); PLATELET COUNT 268 K/mm3 (130-400); REDCELL DISTRIBUTION WIDTH-CV 19.2 % (11.5-14.5)
[2020-06-20 13:54] LABS: HEMATOCRIT 31.9 % (42.0-52.0); HEMOGLOBIN 9.3 g/dl (13.5-18.0); MEAN CORPUSCULAR HEMOGLOBIN 24 pg (27.0-31.0)
[2020-06-20 14:04] LABS: ALBUMIN 3.7 gm/dL (3.5-5.0); CALCIUM 9.1 mg/dL (8.4-10.2); CREATININE, serum 3.6 (0.66-1.25); PHOSPHOROUS 2.9 mg/dL (2.5-4.5)
[2020-06-20 15:36] LABS: ANISOCYTOSIS 2+; BAND 3 % (0-10); EOSINOPHIL 2 % (0-4); HYPOCHROMIA 3+; LYMPHOCYTE 9 % (20.0-51.0); NEUTROPHILS 80 % (42.0-75.2)
[2020-06-20 15:37] LABS: PLATELET ESTIMATE NORMAL (NORMAL)
[2020-06-20 15:38] LABS: SCHISTOCYTES 1+
--- NOTE | 2020-06-20 16:49 | NUR ---
Patient back to room from dialysis by wheelchair.
[2020-06-20 17:05] VITALS: BP 161/66; PULSE 65; TEMP 98
--- NOTE | 2020-06-20 18:46 | NUR ---
Patient has done well throughout the day. Encouraged patient to increase activity. Dressing to coccyx changed. Denies needs at this time. Reported off to shift supervisor film processing.
--- NOTE | 2020-06-20 19:00 | NUR ---
RECEIVED CHANGE OF SHIFT REPORT FROM DAY SHIFT NURSE. BED ALARM ON.
--- NOTE | 2020-06-20 20:00 | NUR ---
DENIES CHEST PAIN/SHORTNESS OF BREATH. DENIES NUMBNESS/TINGLING TO EXTREMITIES. DENIES ANY DISCOMFORT AT THIS TIME. BED ALARM ON.
[2020-06-21 04:16] VITALS: BP 149/62; PULSE 98; TEMP 98.3
--- NOTE | 2020-06-21 07:40 | NUR ---
CHANGE OF SHIFT REPORT GIVEN TO DAY SHIFT NURSE, NASRIN BARBER.
--- NOTE | 2020-06-21 09:35 | NUR ---
PT MOD-I IN ROOM, WAS SLEEPING IN BED AT BEDSIDE SHIFT REPORT. TRANSFERRED SELF TO RECLINER FOR BREAKFAST. SAYS BODY ACHES ARE A 2/10 PAIN LEVEL AND SORE TO BOTTOM IS A 9/10, DID NOT WANT PAIN MEDICATION AT THIS TIME. EXCORIATION TO BOTTOM WAS CLEANSED WITH SOAP AND WATER, DRIED, BARRIER CREAM APPLIED, AND ALLEVYN DRSG IN PLACE. EDUCATED PT TO CONTINUE TO REPOSITION OFTEN TO HELP HEALING.
[2020-06-21 16:59] VITALS: BP 156/75; PULSE 64; TEMP 98.5
--- NOTE | 2020-06-21 19:08 | NUR ---
RECEIVED CHANGE OF SHIFT REPORT FROM DAY SHIFT NURSE.
--- NOTE | 2020-06-21 20:00 | NUR ---
PATIENT UP INDEPENDENTLY IN ROOM WITH NO REPORTED PROBLEMS, UP IN CHAIR WHILE VISITING WITH SPOUSE. DENIES ANY COMPLAINTS OR NEEDS AT THIS TIME.
[2020-06-22 05:49] VITALS: BP 140/62; PULSE 69; TEMP 97.8
--- NOTE | 2020-06-22 07:33 | NUR ---
REPORT GIVEN TO DAY SHIFT NURSE, ALMA BARBER.
--- NOTE | 2020-06-22 08:17 | NUR ---
Patient resting in recliner, independent in his room. Patient is leaving to go home today and is awaiting his dialysis this morning. Patient reporting 9/10 pain to coccyx area where he has a stage II that is being treated with aguacel AG and mepilex applied. Patient given PRN pain meds this am. Will continue to monitor.
[2020-06-22 09:17] LABS: MEAN CELL VOLUME 81 fl (80.0-100.0); MEAN CORPUSCULAR HGB CONC 30 g/dl (33.0-37.0); MEAN PLATELET VOLUME 9.1 fl (7.4-10.4); PLATELET COUNT 231 K/mm3 (130-400); RED BLOOD COUNT 3.86 M/mm3 (4.20-5.60)
[2020-06-22 09:20] LABS: HEMATOCRIT 31.2 % (42.0-52.0); HEMOGLOBIN 9.2 g/dl (13.5-18.0); MEAN CORPUSCULAR HEMOGLOBIN 24 pg (27.0-31.0)
[2020-06-22 09:30] LABS: ALBUMIN 3.4 gm/dL (3.5-5.0); CALCIUM 8.8 mg/dL (8.4-10.2); CREATININE, serum 3.18 (0.66-1.25); PHOSPHOROUS 3.1 mg/dL (2.5-4.5)
[2020-06-22 10:00] LABS: ANISOCYTOSIS 3+; BAND 1 % (0-10); HYPOCHROMIA 3+; LYMPHOCYTE 20 % (20.0-51.0); NEUTROPHILS 64 % (42.0-75.2); PLATELET ESTIMATE NORMAL (NORMAL)
[2020-06-22 10:01] LABS: OVALOCYTES 1+; POIKILOCYTOSIS 1+; SCHISTOCYTES 1+
--- NOTE | 2020-06-22 10:51 | NUR ---
Call placed to Dr. Camarillo asking for him to go over discharge meds for patient and to schedule a follow up visit for patient. Awaiting a return call.
--- NOTE | 2020-06-22 13:51 | NUR ---
Dr. Camarillo visited with patient and finalized meds.
--- NOTE | 2020-06-22 13:51 | NUR ---
The patient is to discharge back home with his today, 06/22, with home health services for detention/PT/OT through [facility]. SW notified and faxed d/c orders to Mile at [facility]. SW contacted the patient's , Jose Elias, and read the IM form outloud to her. Jose Elias verbalized understanding and gave SW approval to sign the form on her behalf. No additional needs at this time.
--- NOTE | 2020-06-22 14:21 | NUR ---
Patient given education on Renal Diet and Dialysis. Patient instructed on meds.
--- NOTE | 2020-06-22 15:06 | NUR ---
Patient asked to see if he could get a new walker, as the one he has at home is very wabbaly and needs a new one. This was communicated to Kaylynn, and she will follow up with high school social studies teacher. Patient Health Summary, Discharge Summary, and Home Meds reviewed with patient and his . Stressed importance of follow up appointments. Called prescriptions to pharmacy of choice. Belongings gathered by ARCHITECTURAL DRAFTING INSTRUCTOR/Mahin including misc. personal items. Patient transported via wheelchair by ARCHITECTURAL DRAFTING INSTRUCTOR/Mahin and seatbelted for ride home with . Patient and denied any questions.
== END 2020-06-22 15:15 | disposition home health service (06) | DRG 948 ==
PROVIDERS: Internal Medicine Nephrology; ADMIT Internal Medicine
DX: R53.81 Other malaise (principal); Z94.0 Kidney transplant status; G72.9 Myopathy, unspecified; I10 Essential (primary) hypertension; R91.1 Solitary pulmonary nodule; E11.51 Type 2 diabetes mellitus with diabetic peripheral angiopathy without gangrene; E11.40 Type 2 diabetes mellitus with diabetic neuropathy, unspecified; E11.22 Type 2 diabetes mellitus with diabetic chronic kidney disease; K21.9 Gastro-esophageal reflux disease without esophagitis; D63.1 Anemia in chronic kidney disease; N18.9 Chronic kidney disease, unspecified; M10.9 Gout, unspecified; E66.9 Obesity, unspecified; G89.29 Other chronic pain; M54.9 Dorsalgia, unspecified; E78.5 Hyperlipidemia, unspecified; Z79.52 Long term (current) use of systemic steroids; Z79.82 Long term (current) use of aspirin; Z79.4 Long term (current) use of insulin; Z86.16 Personal history of COVID-19; Z90.5 Acquired absence of kidney; Z98.1 Arthrodesis status; Z88.8 Allergy status to other drugs, medicaments and biological substances
CPT/HCPCS: 99222-AI; 99231-AI; 99232-AI; 99239; J1644; J1815; J7030; J7507; J7512; Q5105; Q9967

== ENCOUNTER → 2020-09-08 | Outpatient (CLI) | payer MEDICARE, OTHER ==
[~2020-09-08] MED LIST changes: +AMOXICILLIN 8751 TAB PO; +NEURONTIN300 MG/CAP PO; +OMNICEF 300MG300 MG PO; +RETACRIT10000 UNIT IV; +SMZ/TMPDS PO; +ULTRAM 50MG TAB50 MG PO; +ZEMPLAR1 MCG PO
== END ==
LOC: COL.RAD 07:21
DX: R05 Cough (principal)

== ENCOUNTER 2020-09-22 14:10 | Inpatient (IN) | payer MEDICARE, OTHER ==
[~2020-09-22] VITALS: Ht 185.4 cm; Wt 116.0 kg
[~2020-09-22 14:10] MED LIST changes: -AMOXICILLIN 8751 TAB PO; -SMZ/TMPDS PO
[2020-09-22 15:24] LABS: MEAN CELL VOLUME 78 fl (80.0-100.0); MEAN CORPUSCULAR HGB CONC 28 g/dl (33.0-37.0); MEAN PLATELET VOLUME 9.7 fl (7.4-10.4); PLATELET COUNT 197 K/mm3 (130-400); REDCELL DISTRIBUTION WIDTH-CV 21.7 % (11.5-14.5)
[2020-09-22 15:27] LABS: ALBUMIN 3.3 gm/dL (3.5-5.0); BILIRUBIN,TOTAL 1.5 mg/dL (0.0-1.0); CALCIUM 8.3 mg/dL (8.4-10.2); CREATININE, serum 2.54 (0.66-1.25); POTASSIUM 3.7 mmol/L (3.4-5.0); TOTAL PROTEIN 6.8 gm/dL (6.4-8.2)
[2020-09-22 15:41] LABS: HEMATOCRIT 26.4 % (42.0-52.0); HEMOGLOBIN 7.5 g/dl (13.5-18.0); MEAN CORPUSCULAR HEMOGLOBIN 22 pg (27.0-31.0)
[2020-09-22 15:48] LABS: INR 1.3 (0.8-3.0); PROTHROMBIN TIME 14.1 SECONDS (9.7-12.8)
[2020-09-22 16:50] LABS: BAND 9 % (0-10); BASOPHIL 1 % (0-2); EOSINOPHIL 2 % (0-4); LYMPHOCYTE 2 % (20.0-51.0); METAMYELOCYTE 3 % (0-0); MYELOCYTE 1 % (0-0); NEUTROPHILS 78 % (42.0-75.2); PLATELET ESTIMATE NORMAL (NORMAL)
[2020-09-22 16:52] LABS: ANISOCYTOSIS 3+
[2020-09-22 16:58] LABS: SCHISTOCYTES 1+
[2020-09-22 16:59] LABS: HYPOCHROMIA 3+
[2020-09-22 17:00] LABS: BURR CELLS 1+
[2020-09-22] MEDS ORDERED: SINGULAIR 110 MG/TAB PO (17:27)
[2020-09-22 19:40] VITALS: BP 140/67; PULSE 69; TEMP 97.8
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
[2020-09-22 23:55] VITALS: BP 127/53; PULSE 64; TEMP 97.5
[2020-09-23 04:06] VITALS: BP 138/59; PULSE 60; TEMP 97.6
--- NOTE | 2020-09-23 07:00 | NUR ---
Report received from ELISABETH Kohler. pT in bed resting, wants to void, sat up at side of bed and felt dizzy, wanted to sit for a few minutes before standing to void. Bed alamr on and call light in reach, he will call when ready to stand and void.
[2020-09-23 07:35] VITALS: BP 155/66; PULSE 67; TEMP 98.3
[2020-09-23 08:43] LABS: BASO % 0.3 % (0.0-2.0); EOS # 0.1 (0.0-0.7); GRAN # 4.5 (1.4-6.5); GRAN % 74.7 % (42.2-75.2); LYMPH # 0.7 (1.2-3.4); LYMPH % 11.3 % (20.0-51.0); MEAN CELL VOLUME 77 fl (80.0-100.0); MEAN CORPUSCULAR HGB CONC 28 g/dl (33.0-37.0); MEAN PLATELET VOLUME 8.9 fl (7.4-10.4); MONO # 0.6 (0.1-0.6); MONO % 10.5 % (1.7-9.3); PLATELET COUNT 178 K/mm3 (130-400); RED BLOOD COUNT 3.37 M/mm3 (4.20-5.60); REDCELL DISTRIBUTION WIDTH-CV 21.5 % (11.5-14.5)
[2020-09-23 08:45] LABS: HEMATOCRIT 26.1 % (42.0-52.0); HEMOGLOBIN 7.4 g/dl (13.5-18.0); MEAN CORPUSCULAR HEMOGLOBIN 22 pg (27.0-31.0)
[2020-09-23 08:59] LABS: ALBUMIN 3.3 gm/dL (3.5-5.0); CALCIUM 8.3 mg/dL (8.4-10.2); CREATININE, serum 2.43 (0.66-1.25); PHOSPHOROUS 3.2 mg/dL (2.5-4.5); POTASSIUM 3.7 mmol/L (3.4-5.0)
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
--- NOTE | 2020-09-23 12:37 | NUR ---
Patient tolerated HD tx with 3.8L of fluid removed. Next planned on Saturday09/26/20 @ 0800.
[2020-09-23 12:58] VITALS: BP 117/55; PULSE 85; TEMP 98.4
--- NOTE | 2020-09-23 13:24 | NUR ---
Initial visit; Patient thanked [employer] Director for looking in on him and offering God's blessings and to keep him in [employer] Director's prayers.
--- NOTE | 2020-09-23 15:32 | NUR ---
Dr. Camarillo staffed with this Award Machine Operator regarding patient discharge. He would like a referral sent to [facility]. Referral sent.
[2020-09-23 18:00] VITALS: BP 109/52; PULSE 76; TEMP 98.2
[2020-09-23 19:22] VITALS: BP 113/47; PULSE 78; TEMP 98.6
--- NOTE | 2020-09-23 19:26 | NUR ---
Pt has done well over shift, upon returning from dialysis able to eat 3 meals. Resting in bed, denies needs, at bedside. 02 down to 2LNC. Bedside shift report given to nightshift nurse who will resume care.
--- NOTE | 2020-09-23 19:42 | NUR ---
Dr. Camarillo ordered an extra HD tx planned for tomorrow, 09/24/2020 @ 0800.
--- NOTE | 2020-09-23 20:00 | NUR ---
Assessment complete. Patient's currently at bedside. Patient is alert and oriented, though appears drowsy and weak. He is able to ambulate with walker and SBA to restroom but his gait is slightly unsteady. He is pale. He has no complaints of pain and no edema is noted. He wears 3 liters oxygen via nasal cannula and shows no signs of SOA. Comfort measures provided, will continue to monitor.
--- NOTE | 2020-09-23 22:18 | NUR ---
Dialysis time changed to 11-noon for tomorrow, Saturday09/27/20.
[2020-09-23 23:13] VITALS: BP 144/64; PULSE 76; TEMP 98.2
[2020-09-24 03:01] VITALS: BP 140/60; PULSE 79; TEMP 99.4
[2020-09-24 07:54] VITALS: BP 141/59; PULSE 73; TEMP 98.4
--- NOTE | 2020-09-24 08:20 | NUR ---
PT SLEEPING UPON ENTRY, WOKE PT UP, PT DENIES PAIN OR DISCOMFORT, MEDICATIONS GIVEN, PT PLEASANT, PT REPORTS FEELING WEAK, ASSESSMENT PERFORMED, INFORMED PT OF DIALYSIS TODAY BUT PT DENIES THAT DIALYSIS WILL OCCUR. NO OTHER NEEDS.
[2020-09-24 11:42] VITALS: BP 133/62; PULSE 73; TEMP 98
--- NOTE | 2020-09-24 12:58 | NUR ---
SW met with patient about plan. Patient reports that he resides at home with is spouse Smitha [phone] and son Izzy [phone]. Patient reports that he has a loop recorder, transfer chair, and walker. Patient reports PCP is Cameron Alvarado. Patient reports that he uses [facility] for medications and without concerns. Also has a specialist Dr. Garcia in [facility]. PT recommendations are home with home health.Awaiting referral responses.
[2020-09-24 14:33] LABS: MEAN CELL VOLUME 79 fl (80.0-100.0); MEAN CORPUSCULAR HGB CONC 28 g/dl (33.0-37.0); MEAN PLATELET VOLUME 9.4 fl (7.4-10.4); PLATELET COUNT 168 K/mm3 (130-400); RED BLOOD COUNT 3.24 M/mm3 (4.20-5.60); REDCELL DISTRIBUTION WIDTH-CV 21.6 % (11.5-14.5)
[2020-09-24 14:35] LABS: HEMATOCRIT 25.7 % (42.0-52.0); HEMOGLOBIN 7.2 g/dl (13.5-18.0); MEAN CORPUSCULAR HEMOGLOBIN 22 pg (27.0-31.0)
[2020-09-24 14:39] LABS: RETIC # 0.09 M/mm3 (0.02-0.16); RETIC % 2.7 % (0.5-3.52)
[2020-09-24 14:50] LABS: ALBUMIN 3.2 gm/dL (3.5-5.0); CALCIUM 8.2 mg/dL (8.4-10.2); CREATININE, serum 2.16 (0.66-1.25); PHOSPHOROUS 3.3 mg/dL (2.5-4.5); POTASSIUM 3.8 mmol/L (3.4-5.0)
[2020-09-24 15:29] LABS: BAND 1 % (0-10); EOSINOPHIL 2 % (0-4); LYMPHOCYTE 10 % (20.0-51.0); NEUTROPHILS 81 % (42.0-75.2)
[2020-09-24 15:30] LABS: ANISOCYTOSIS 2+; HYPOCHROMIA 3+; MICROCYTOSIS 1+; PLATELET ESTIMATE NORMAL (NORMAL)
[2020-09-24 17:03] VITALS: BP 118/79; PULSE 65; TEMP 98.2
--- NOTE | 2020-09-24 17:57 | NUR ---
PT REQUIRES INSULIN BUT PT SLEEPING IN BED, PT AOX4, VERY DROWSY THROUGHOUT THE DAY, ANTIBIOTICS INFUSING, PT DENIES PAIN BUT REPORTS WEAKNESS, DINNER ORDERED FOR PT. NO OTHER NEEDS
[2020-09-24 20:35] VITALS: BP 128/56; PULSE 74; TEMP 98.3
[2020-09-24 23:42] VITALS: BP 104/33; PULSE 75; TEMP 97.7
[2020-09-25] VITALS (16 sets, daily range): BP systolic 115–159; BP diastolic 39–69; PULSE 69–83; TEMP 97.5–98.7
--- NOTE | 2020-09-25 00:54 | NUR ---
Rabia contacted by this RN at beginning at shift due to patient appearing weaker and more pale than previous nights. He is still requiring oxygen greater than baseline demands with a hgb that is trending down; it is currently 7.2. Rabia orders 2 units PRBC to be infused tonight. First unit is initiated at this time. Patient and were both educated on the blood transfusion process and adverse side effects; signed consent was obtained. Patient tolerated first 15 minutes well, with this RN at bedside. Will continue to monitor.
--- NOTE | 2020-09-25 04:24 | NUR ---
2ND UNIT OF PRBC INITIATED AT THIS TIME. PATIENT TOLERATED FIRST UNIT WELL. THIS RN STAYED AT BEDSIDE FOR FIRST 15 MINUTES OF TRANSFUSIONS. NO ADVERSE REACTIONS OBSERVED AND VITAL SIGNS REMAINED STABLE. WILL CONTINUE TO MONITOR.
--- NOTE | 2020-09-25 07:50 | NUR ---
Second unit blood transfusion complete. Patient tolerated well. VSS. IV CDI. No further needs expressed from the patient. Call light within reach
--- NOTE | 2020-09-25 08:00 | NUR ---
Patient sitting up in bed, second unit of blood transfusing and tolerating well. A&Ox3. VSS 3L NC IV CDI. No further needs expressed from the patient. Call light within reach
[2020-09-25 10:22] LABS: MEAN CELL VOLUME 81 fl (80.0-100.0); MEAN CORPUSCULAR HGB CONC 29 g/dl (33.0-37.0); MEAN PLATELET VOLUME 8.8 fl (7.4-10.4); PLATELET COUNT 152 K/mm3 (130-400); RED BLOOD COUNT 3.89 M/mm3 (4.20-5.60); REDCELL DISTRIBUTION WIDTH-CV 20.2 % (11.5-14.5)
[2020-09-25 10:23] LABS: HEMATOCRIT 31.4 % (42.0-52.0); MEAN CORPUSCULAR HEMOGLOBIN 23 pg (27.0-31.0)
[2020-09-25 10:33] LABS: ALBUMIN 3.4 gm/dL (3.5-5.0); CALCIUM 8.4 mg/dL (8.4-10.2); CREATININE, serum 2.35 (0.66-1.25); PHOSPHOROUS 3.6 mg/dL (2.5-4.5); POTASSIUM 3.6 mmol/L (3.4-5.0)
[2020-09-25 11:36] LABS: BAND 7 % (0-10); EOSINOPHIL 3 % (0-4); HYPOCHROMIA 2+; LYMPHOCYTE 12 % (20.0-51.0); METAMYELOCYTE 1 % (0-0); NEUTROPHILS 68 % (42.0-75.2); PLATELET ESTIMATE NORMAL (NORMAL)
[2020-09-25 11:37] LABS: ANISOCYTOSIS 1+; OVALOCYTES 1+
--- NOTE | 2020-09-25 17:43 | NUR ---
Patient had an uneventful day. Finished 2nd blood transfusion in the am and tolerated well. VSS 3L NC O2, no reported SOB. Spent most of the shift sitting on the edge of the bed. Denies pain and discomfort. IV CDI. No further needs expressed from the patient. Call light within reach
[2020-09-26 03:42] VITALS: BP 139/56; PULSE 52; TEMP 98.9
--- NOTE | 2020-09-26 06:26 | NUR ---
No new issues noted or reported by patient throughout the night.
[2020-09-26 06:27] LABS: BASO % 0.7 % (0.0-2.0); EOS # 0.1 (0.0-0.7); EOS % 2.5 % (0-4.0); GRAN # 2.8 (1.4-6.5); LYMPH # 0.5 (1.2-3.4); LYMPH % 12.8 % (20.0-51.0); MEAN CELL VOLUME 80 fl (80.0-100.0); MEAN CORPUSCULAR HGB CONC 30 g/dl (33.0-37.0); MEAN PLATELET VOLUME 9.1 fl (7.4-10.4); MONO # 0.6 (0.1-0.6); PLATELET COUNT 148 K/mm3 (130-400); RED BLOOD COUNT 3.63 M/mm3 (4.20-5.60); REDCELL DISTRIBUTION WIDTH-CV 20.4 % (11.5-14.5)
[2020-09-26 06:32] LABS: HEMATOCRIT 28.9 % (42.0-52.0); HEMOGLOBIN 8.6 g/dl (13.5-18.0); MEAN CORPUSCULAR HEMOGLOBIN 24 pg (27.0-31.0)
[2020-09-26 06:51] LABS: ALBUMIN 3.3 gm/dL (3.5-5.0); CALCIUM 8.4 mg/dL (8.4-10.2); CREATININE, serum 2.6 (0.66-1.25); PHOSPHOROUS 3.3 mg/dL (2.5-4.5)
--- NOTE | 2020-09-26 08:46 | NUR ---
PT PLEASANT, AOX4, MEDICATIONS GIVEN, ASSESSMENT PERFORMED, PT DENIES PAIN, IV SITE CDI W/O ERYTHEMA, EDUCATED ON DIALYSIS AT 1100.
[2020-09-26 09:48] VITALS: BP 164/67; PULSE 79; TEMP 98.2
--- NOTE | 2020-09-26 14:19 | NUR ---
Patient tolerated HD tx with 3.6L of fluid removal today. Next planned HD tx on Saturday09/28/2020.
--- NOTE | 2020-09-26 14:39 | NUR ---
Kaylynn, IPR Director, reports that the patient is refusing to work with OT and PT is recommending home with home health. Kaylynn reports that they will not be able to take the patient. OLU contacted the patient's , Jose Elias, to update and review d/c plan. Jose Elias was hopeful for IPR. SW discussed sending referrals to SNFs vs home health. Jose Elias reports that she knows Dr. Camarillo will keep the patient in the hospital, until he is ready. She was interested in home health through [facility]. SW attempted to contact Mile at [facility]. SW left her a voicemail and faxed over the referral. Awaiting screen.
--- NOTE | 2020-09-26 15:29 | NUR ---
Mile, at [facility], reports that they already have the patient on for services and are able to resume them upon discharge.
[2020-09-26 17:31] VITALS: BP 144/59; PULSE 81; TEMP 98
--- NOTE | 2020-09-26 17:49 | NUR ---
PT PLEASANT, AOX4, DROWSY IN ROOM, INSULIN GIVEN, DINNER ORDERED, ANTIBIOTIC DETACHED, DIET SPRITE AND ICE WATER BROUGHT IN FOR PT.
[2020-09-26 19:56] VITALS: BP 141/50; PULSE 77; TEMP 98.1
[2020-09-26 23:36] VITALS: BP 132/55; PULSE 79; TEMP 98.3
[2020-09-27 03:52] VITALS: BP 128/63; PULSE 79; TEMP 98.2
--- NOTE | 2020-09-27 05:32 | NUR ---
PATIENT RESTED QUIETLY IN BED THROUGHOUT THE NIGHT. NO NEW ISSUES NOTED OR REPORTED BY PATIENT.
[2020-09-27 06:49] LABS: BASO % 0.9 % (0.0-2.0); EOS # 0.1 (0.0-0.7); EOS % 3.1 % (0-4.0); GRAN # 2.2 (1.4-6.5); GRAN % 63.2 % (42.2-75.2); LYMPH # 0.6 (1.2-3.4); LYMPH % 16.2 % (20.0-51.0); MEAN CELL VOLUME 81 fl (80.0-100.0); MEAN CORPUSCULAR HGB CONC 30 g/dl (33.0-37.0); MEAN PLATELET VOLUME 9.3 fl (7.4-10.4); MONO # 0.6 (0.1-0.6); MONO % 15.7 % (1.7-9.3); PLATELET COUNT 154 K/mm3 (130-400); RED BLOOD COUNT 3.64 M/mm3 (4.20-5.60); REDCELL DISTRIBUTION WIDTH-CV 20.8 % (11.5-14.5)
[2020-09-27 06:51] LABS: HEMATOCRIT 29.5 % (42.0-52.0); HEMOGLOBIN 8.7 g/dl (13.5-18.0); MEAN CORPUSCULAR HEMOGLOBIN 24 pg (27.0-31.0)
[2020-09-27 07:05] LABS: ALBUMIN 3.3 gm/dL (3.5-5.0); CALCIUM 8.4 mg/dL (8.4-10.2); CREATININE, serum 2.13 (0.66-1.25); PHOSPHOROUS 3.1 mg/dL (2.5-4.5); POTASSIUM 4.2 mmol/L (3.4-5.0)
[2020-09-27 07:39] VITALS: BP 138/60; PULSE 79; TEMP 97.7
--- NOTE | 2020-09-27 09:00 | NUR ---
PT AOX4, PLEASANT, REPORTS LOW BACK PAIN, TYLENOL GIVEN ALONG WITH OTHER MEDICATIONS. PT REPORTS NOT HAVING A BM FOR 8-9 DAYS. BS PRESENT AND PT PASSING GAS. ASSESSMENT PERFORMED, PT ATE ALL OF BREAKFAST, NO OTHER NEEDS AT THIS TIME. LH INT CDI W/O ERYTHEMA.
[2020-09-27] MEDS ORDERED: AMOXICILLIN 8751 TAB PO (11:44)
[2020-09-27] MEDS ORDERED: SMZ/TMPDS PO (11:44)
[2020-09-27 12:54] VITALS: BP 139/64; PULSE 75; TEMP 97.6
--- NOTE | 2020-09-27 13:43 | NUR ---
The patient's RN and Leda, RN with Dr. Camarillo, notified SW that the patient and his now want to pursue SNF at [facility] or [facility] and that the patient is ready to d/c today. SW contacted the patient's , Jose Elias, to discuss the above. Jose Elias confirms that they would like to pursue SNF now. She reports that she is not home at all times and that the patient needs to get stronger. She states that they would prefer 1) [facility] 2) [facility]. She states that they are open to going to [facility] if [facility] cannot take today. OLU read the IM form outloud to Jose Elias. Jose Elias verbalized understanding and gave SW approval to sign the form on her behalf. OLU contacted and faxed a referral to [facility] and [facility]. Awaiting screens.
--- NOTE | 2020-09-27 15:23 | NUR ---
Mary, at [facility], reports that they are able to accept the patient for a skilled stay. SW notified the patient's RN, Dr. Camarillo, and the patient's . The patient is to discharge today, 09/27, to [facility] for a skilled stay. Transportation was scheduled at 1530, via [facility]. OLU informed the patient's and his RN of the time. They were both agreeable to the time. OLU updated Mile at [facility] and Rajendra at [facility]. No additional needs at this time.
--- NOTE | 2020-09-27 15:45 | NUR ---
pt escorted out via wheelchair with home meds and pt belongings. following pt out. no other needs at this time. report called snf
== END 2020-09-27 15:45 | disposition home health service (06) | DRG 189 ==
LOC: COL.ER 14:10 → MEDICAL 17:03
PROVIDERS: Physician Assistant; ADMIT Internal Medicine Nephrology
PROC: 5A1D70Z Performance of Urinary Filtration, Intermittent, Less than 6 Hours Per Day (ICD-10-PCS; principal; 2020-09-22)
DX: J96.01 Acute respiratory failure with hypoxia (principal); J18.9 Pneumonia, unspecified organism; N18.6 End stage renal disease; Z94.0 Kidney transplant status; J90 Pleural effusion, not elsewhere classified; D63.1 Anemia in chronic kidney disease; G72.89 Other specified myopathies; E11.22 Type 2 diabetes mellitus with diabetic chronic kidney disease; Z99.2 Dependence on renal dialysis; G89.29 Other chronic pain; M54.5 Low back pain; R29.6 Repeated falls; E71.40 Disorder of carnitine metabolism, unspecified; L89.322 Pressure ulcer of left buttock, stage 2; Z99.89 Dependence on other enabling machines and devices; Z79.82 Long term (current) use of aspirin; Z79.52 Long term (current) use of systemic steroids; Z79.4 Long term (current) use of insulin; I44.0 Atrioventricular block, first degree; R53.81 Other malaise; E66.09 Other obesity due to excess calories; I25.10 Atherosclerotic heart disease of native coronary artery without angina pectoris; F40.240 Claustrophobia; E78.5 Hyperlipidemia, unspecified; N52.9 Male erectile dysfunction, unspecified; M10.9 Gout, unspecified; K21.9 Gastro-esophageal reflux disease without esophagitis; E11.42 Type 2 diabetes mellitus with diabetic polyneuropathy; Z85.528 Personal history of other malignant neoplasm of kidney; Z98.1 Arthrodesis status; Z87.891 Personal history of nicotine dependence; G47.33 Obstructive sleep apnea (adult) (pediatric); R50.9 Fever, unspecified; Z68.33 Body mass index [BMI] 33.0-33.9, adult
CPT/HCPCS: J0295; J0456; J1644; J1815; J7030; J7050; J7512; P9016; Q5105

== ENCOUNTER → 2020-11-24 | Outpatient (CLI) | payer MEDICARE, OTHER ==
[~2020-11-24] MED LIST changes: +AMOXICILLIN 8751 TAB PO; +SMZ/TMPDS PO
== END ==
LOC: COL.VAS 13:38
DX: I08.0 Rheumatic disorders of both mitral and aortic valves (principal)

== ENCOUNTER 2021-11-03 07:52 | Day surgery (SDC) | payer MEDICARE, OTHER ==
[~2021-11-03] VITALS: Ht 185.4 cm; Wt 118.6 kg
[~2021-11-03 07:52] MED LIST changes: -LEVEMIR100 U/ML SQ
[2021-11-03 08:53] LABS: CALCIUM 8.9 mg/dL (8.4-10.2); CREATININE, serum 2.71 mg/dL (0.72-1.25); POTASSIUM 4.2 mmol/L (3.5-4.5)
[2021-11-03] MEDS ORDERED: PROTONIX 40MG T40 MG PO (09:18)
[2021-11-03] MEDS ORDERED: ELIQUIS 5MG PO (09:19)
[2021-11-03] MEDS ORDERED: LEVEMIR100 U/ML SQ (09:23)
[2021-11-03 09:31] VITALS: BP 141/83; PULSE 78; TEMP 98.7
[2021-11-03 10:00] VITALS: BP 97/45; PULSE 74; TEMP 98.3
[2021-11-03 10:15] VITALS: BP 114/46; PULSE 72
[2021-11-03 10:30] VITALS: BP 130/58; PULSE 70
[2021-11-03 10:45] VITALS: BP 120/58; PULSE 76
--- NOTE | 2021-11-03 11:21 | NUR ---
PATIENT REMAINS AWAKE, ALERT. RARE DRY COUGH. RESP NON LABORED. HERE. DISCHARGEINSTRUCTIONS REVIEWEDD WITH PATIENT AND VERBALIZING UNDERSTANDING. COPY OF INSTRUCITONS AND EDUCATIONAL MATERIALS PROVIDED.
[2021-11-03 16:50] VITALS: BP 122/68; PULSE 74
== END 2021-11-03 11:02 | disposition home or self-care (01) ==
LOC: SDCO 07:52
PROVIDERS: Nurse Anesthetist, Certified Registered
DX: R91.1 Solitary pulmonary nodule (principal); J90 Pleural effusion, not elsewhere classified; G47.33 Obstructive sleep apnea (adult) (pediatric); R09.02 Hypoxemia; Z85.118 Personal history of other malignant neoplasm of bronchus and lung; Z85.528 Personal history of other malignant neoplasm of kidney; Z94.0 Kidney transplant status; Z79.01 Long term (current) use of anticoagulants
CPT/HCPCS: J2704

== ENCOUNTER 2021-12-27 21:10 | Inpatient (IN) | payer MEDICARE, OTHER ==
[~2021-12-27] VITALS: Ht 185.4 cm; Wt 119.9 kg
[~2021-12-27 21:10] MED LIST changes: +ELIQUIS 5MG PO; +LEVEMIR100 U/ML SQ
[2021-12-27 21:34] LABS: HEMOGLOBIN 10.5 g/dl (13.5-18.0); MEAN CELL VOLUME 79 fl (80.0-100.0); MEAN CORPUSCULAR HEMOGLOBIN 25 pg (27-31); MEAN CORPUSCULAR HGB CONC 31 g/dl (33.0-37.0); MEAN PLATELET VOLUME 8.9 fl (7.4-10.4); PLATELET COUNT 115 K/mm3 (130-400); RED BLOOD COUNT 4.26 M/mm3 (4.20-5.60); REDCELL DISTRIBUTION WIDTH-CV 16.5 % (11.5-14.5)
[2021-12-27 21:36] LABS: HEMATOCRIT 33.5 % (42.0-52.0)
[2021-12-27 21:55] LABS: CALCIUM 8.4 mg/dL (8.4-10.2); CREATININE, serum 4.11 mg/dL (0.72-1.25); POTASSIUM 4.5 mmol/L (3.5-4.5); TOTAL PROTEIN 6.6 gm/dL (6.2-8.1)
[2021-12-27 22:05] LABS: TROPONIN-I 0.06 ng/mL (0.00-0.033)
[2021-12-27 22:10] LABS: BAND 46 % (0-10); LYMPHOCYTE 4 % (20.0-51.0); METAMYELOCYTE 7 % (0-0); NEUTROPHILS 43 % (42.0-75.2)
[2021-12-27 22:11] LABS: ANISOCYTOSIS 1+; HYPOCHROMIA 2+; PLATELET ESTIMATE DECREASED (NORMAL)
[2021-12-27 22:28] LABS: COLLECTION METHOD CATHETER
[2021-12-27 22:50] LABS: MUCOUS Present (NOT PRESENT); SQUAMOUS EPITHELIAL None Seen /hpf (0-10); URINE BACTERIA None Seen /hpf (NONE SEEN)
[2021-12-27 22:52] LABS: URINE APPEARANCE Cloudy (CLEAR/HAZY); URINE COLOR Yellow (YELLOW); URINE GLUCOSE 3+ (NEGATIVE); URINE KETONE Negative (NEGATIVE); URINE PROTEIN(semi-quant) 2+ (NEGATIVE)
[2021-12-27 22:53] LABS: URINE BLOOD 2+ (NEGATIVE); URINE NITRATE Negative (NEGATIVE)
[2021-12-28] VITALS (1034 sets, daily range): BP systolic 86–135; BP diastolic 43–74; PULSE 70–88; TEMP 97.6–98.2; O2SAT 37–100
[2021-12-28 04:22] LABS: MEAN CELL VOLUME 80 fl (80.0-100.0); MEAN CORPUSCULAR HEMOGLOBIN 24 pg (27-31); MEAN CORPUSCULAR HGB CONC 31 g/dl (33.0-37.0); MEAN PLATELET VOLUME 9.8 fl (7.4-10.4); PLATELET COUNT 143 K/mm3 (130-400); RED BLOOD COUNT 4.09 M/mm3 (4.20-5.60); REDCELL DISTRIBUTION WIDTH-CV 16.9 % (11.5-14.5)
[2021-12-28 04:25] LABS: HEMATOCRIT 32.7 % (42.0-52.0)
[2021-12-28 04:30] LABS: INR 1.5 (0.8-3.0); PROTHROMBIN TIME 16.9 SECONDS (9.7-12.8)
[2021-12-28 04:35] LABS: ARTERIAL BLD GAS O2 SATURATION 97.2 % (92-100); ARTERIAL BLD GAS TCO2 CT 19.3; ARTERIAL BLOOD GAS BASE EXCESS -7.1 (-2-2); ARTERIAL BLOOD GAS HCO3 18.2 meq/L (22-26); ARTERIAL BLOOD GAS PCO2 36.1 mmHg (35-45); ARTERIAL BLOOD GAS pH 7.32 (7.35-7.45)
[2021-12-28 04:42] LABS: ALBUMIN 2.7 gm/dL (3.4-4.8); BILIRUBIN,TOTAL 2.7 mg/dL (0.2-1.2); CALCIUM 7.9 mg/dL (8.4-10.2); CREATININE, serum 4.96 mg/dL (0.72-1.25); POTASSIUM 3.9 mmol/L (3.5-4.5); TOTAL PROTEIN 5.8 gm/dL (6.2-8.1)
--- NOTE | 2021-12-28 04:49 | NUR ---
0200 - PT ARRIVED TO UNIT AT THIS TIME. VSS, PT DROWSY BUT ANSWERS QUESTIONS APPROPRIATELY. SEPSIS PROTOCOL IN PLACE, HOWEVER, SINCE PT IS ON DIALYSIS, FLUIDS/BOLUS NOT GIVEN UPON ADMISSION TO ICU. PT RESTING COMFORTABLY. DR. CHACON NOTIFIED OF PT'S ADMISSION W/ NO ORDERS. INSTRUCTED TO CONSULT HOSPITALIST FOR MANAGEMENT OF PT.
[2021-12-28 04:56] LABS: MAGNESIUM 1.7 mg/dL (1.6-2.6); TROPONIN-I 0.586 ng/mL (0.00-0.033)
[2021-12-28 05:03] LABS: ANISOCYTOSIS 1+; BAND 47 % (0-10); HYPOCHROMIA 3+; METAMYELOCYTE 2 % (0-0); NEUTROPHILS 51 % (42.0-75.2); PLATELET ESTIMATE NORMAL (NORMAL)
[2021-12-28 05:04] LABS: SCHISTOCYTES 1+
--- NOTE | 2021-12-28 05:26 | NUR ---
0415 - GTT CONTINUED FROM INITIATION IN ED
--- NOTE | 2021-12-28 05:32 | NUR ---
66 yo male admitted for further care and management of severe sepsis likely secondary to a pulmonary source. ht 185.4 cm wt 120.6 kg SCr 4.11 with ESRD on HD Plan: Patient will not follow population based kinetics secondary to ESRD. Patient received an initial dose of vancomycin 1000 mg x1 in the ED; will give a supplemental pulse dose of vancomycin 1250 mg for a total dose of 2250 mg (18.7 mg/kg). Will follow patient's dialysis requirements, micro data, and vancomycin levels as indicated to assess for the timing of subsequent doses of vancomycin. Thank you for this dosing consult.
--- NOTE | 2021-12-28 14:18 | NUR ---
MD CALLED AND NOTIFIED OF HIGH DOSE/RATE OF INSULIN.
[2021-12-28 14:46] LABS: CALCIUM 8.1 mg/dL (8.4-10.2); CREATININE, serum 5.54 mg/dL (0.72-1.25)
--- NOTE | 2021-12-28 16:43 | NUR ---
paper and pulp mill worker met with patient and his spouse to discuss discharge planning. Patient has been doing home dialysis since September. Spouse stated that they are unsure if they will continue at home or resume dialysis in the clinic. patient's primary care provider is Dr De La Cruz. Spouse denies difficulty obtaining prescriptions. Spouse states that patient has completed advance directives. Worker requested copies of these directives. Worker will continue to follow patient and assist with securing a safe discharge plan.
--- NOTE | 2021-12-28 18:36 | NUR ---
PT HAD AN UNEVENTFUL DAY. VSS. A&OX4. REMAINES AFEBRILE. PT STARTED ON QUAD STRENGTH LEVOPHED TO REDUCE THE AMOUNT OF DEXTROSE SINCE PT BGL IS NOT RESPONDING TO THE INSULIN GTT. PT REQUIRING 35 U/HR INSULIN, NOTIFIED AT HIGH RATE/DOSE. SEE HOSPITALIST NOTES. PT STARTED ON AMIODARONE GTT PER DR. DOE. DR. DOE NOTIFIED THAT PT IS SUSTAINING AN ACCELERATED IDIOVENTRICULAR RHYTHM, STATED TO KEEP THE PT AT THE 1MG/HR AMIODARONE GTT. SEE CARDIOLOGY NOTES. PER DR. CAHCON STAFF IS TO NOT PUT THIS PT ON A POTASSIUM REPLACEMENT. AT THIS TIME, THERE IS NO TALK ABOUT HEMODYALISIS THE PT IS REQUIRING LEVOPHED FOR BLOOD PRESSURE SUPPORT. PER DR. CHACON UPDATE , CLEAR LIQUID DIET HAS BEEN ADDED. Q1HR BS IS REQUIRED STILL AT THIS TIME. PT FAMILY HAS BEEN BEDSIDE AND HAS LAM PT CPAP FOR SLEEP. THIS NURSE HAS NOTIFIED RT TO ASSIST PT,
--- NOTE | 2021-12-28 20:34 | NUR ---
ASSESSMENT COMPLETE AND CHARTED. PATIENT IS ALERT AND ORIENTATED. DENIES NEEDS AT THIS TIME. CALL LIGHT IN REACH.
--- NOTE | 2021-12-28 21:05 | NUR ---
PATIENT HAD ONE EPISODE OF COFFEE GROUND EMESIS. ATTEMPTED TO CONTACT PROVIDER. NO ANSWER. WILL TRY AGAIN.
[2021-12-29] VITALS (1339 sets, daily range): BP systolic 102–155; BP diastolic 47–86; PULSE 61–87; TEMP 97.5–98.5; O2SAT 61–100
[2021-12-29 00:13] LABS: GASTROCCULT POSITIVE; pH GASTRIC CONTENTS 2
--- NOTE | 2021-12-29 02:46 | NUR ---
BG 68. PER ANTONIA PARNELL, GIVE HALF AMP OF D50
[2021-12-29 05:33] LABS: HEMOGLOBIN 11.2 g/dl (13.5-18.0); MEAN CELL VOLUME 80 fl (80.0-100.0); MEAN CORPUSCULAR HEMOGLOBIN 25 pg (27-31); MEAN CORPUSCULAR HGB CONC 31 g/dl (33.0-37.0); MEAN PLATELET VOLUME 9.6 fl (7.4-10.4); PLATELET COUNT 175 K/mm3 (130-400); RED BLOOD COUNT 4.55 M/mm3 (4.20-5.60)
[2021-12-29 05:42] LABS: HEMATOCRIT 36.3 % (42.0-52.0)
[2021-12-29 05:48] LABS: ALBUMIN 2.5 gm/dL (3.4-4.8); BILIRUBIN,TOTAL 4.5 mg/dL (0.2-1.2); CREATININE, serum 6.22 mg/dL (0.72-1.25); POTASSIUM 4.7 mmol/L (3.5-4.5); TOTAL PROTEIN 6.2 gm/dL (6.2-8.1)
[2021-12-29 05:56] LABS: BAND 21 % (0-10); LYMPHOCYTE 4 % (20.0-51.0); METAMYELOCYTE 1 % (0-0); NEUTROPHILS 66 % (42.0-75.2); PLATELET ESTIMATE NORMAL (NORMAL)
[2021-12-29 05:57] LABS: ANISOCYTOSIS 1+; BURR CELLS 1+
[2021-12-29 06:52] LABS: ARTERIAL BLD GAS O2 SATURATION 95.8 % (92-100); ARTERIAL BLD GAS TCO2 CT 12.7; ARTERIAL BLOOD GAS BASE EXCESS -13.2 (-2-2); ARTERIAL BLOOD GAS PCO2 25.9 mmHg (35-45); ARTERIAL BLOOD GAS PO2 86.9 mmHg (80-100); ARTERIAL BLOOD GAS pH 7.28 (7.35-7.45)
--- NOTE | 2021-12-29 07:26 | NUR ---
PATIENT HAD X3 EPISODES OF COFFEE GROUND EMESIS THORUGHOUT NIGHT WAS GIVEN PHENERGAN. REPORT GIVEN TO ELISABETH CURTIS
--- NOTE | 2021-12-29 10:49 | NUR ---
Ok to reduce amiodarone drip to 0.5mg/min per Dr. Pleitez.
--- NOTE | 2021-12-29 19:47 | NUR ---
PT RECEIVED DIALYSIS THIS AFTERNOON, TOLERATED WELL. SEE DOC FOR GTT TITRATIONS, PER PAMELA BARBER. PT ABLE TO USE BEDSIDE COMMODE, STAND PIVOT. NO EPISODES OF VOMITING FOR DAY SHIFT, PT HAS HAD POOR APPETITE. ENCOURAGED TO DRINK.
--- NOTE | 2021-12-29 21:00 | NUR ---
ASSESSMENT COMPLETE AND CHARTED. DENIES NEEDS AT THIS TIME. CALL LIGHT IN REACH.
--- NOTE | 2021-12-29 22:20 | NUR ---
PATIENT DOXYCYCLINE AND ZOSYN DUE AT 1600 NOT GIVEN UNTIL 2100. SPOKE WITH DAVID FROM PHARMACY. DOXYCYCLINE OKAY TO STAY ON 1600 AND 0400 SCHEDULE, WILL RETIME ZOSYN.
[2021-12-30] VITALS (1362 sets, daily range): BP systolic 80–123; BP diastolic 52–90; PULSE 70–85; TEMP 97.5–98.2; O2SAT 47–100
[2021-12-30 04:08] LABS: BASO % 0.2 % (0.0-2.0); EOS # 0.1 K/mm3 (0.0-0.7); EOS % 0.6 % (0.0-4.0); GRAN # 18.4 K/mm3 (1.4-6.5); GRAN % 89.8 % (42.2-75.2); LYMPH # 0.2 K/mm3 (1.2-3.4); MEAN CORPUSCULAR HGB CONC 33 g/dl (33.0-37.0); MONO # 0.7 K/mm3 (0.1-0.6); MONO % 3.6 % (1.7-9.3); PLATELET COUNT 130 K/mm3 (130-400); RED BLOOD COUNT 3.97 M/mm3 (4.20-5.60); REDCELL DISTRIBUTION WIDTH-CV 16.9 % (11.5-14.5)
[2021-12-30 04:15] LABS: HEMATOCRIT 29.5 % (42.0-52.0); HEMOGLOBIN 9.8 g/dl (13.5-18.0); MEAN CELL VOLUME 74 fl (80.0-100.0); MEAN CORPUSCULAR HEMOGLOBIN 25 pg (27-31)
[2021-12-30 04:25] LABS: ALBUMIN 2.4 gm/dL (3.4-4.8); CALCIUM 8.2 mg/dL (8.4-10.2); CREATININE, serum 4.61 mg/dL (0.72-1.25)
[2021-12-30 04:53] LABS: ARTERIAL BLD GAS O2 SATURATION 95.3 % (92-100); ARTERIAL BLD GAS TCO2 CT 26.2; ARTERIAL BLOOD GAS BASE EXCESS 1.8 (-2-2); ARTERIAL BLOOD GAS HCO3 25.1 meq/L (22-26); ARTERIAL BLOOD GAS PCO2 34.4 mmHg (35-45); ARTERIAL BLOOD GAS PO2 74.7 mmHg (80-100); ARTERIAL BLOOD GAS pH 7.48 (7.35-7.45)
--- NOTE | 2021-12-30 05:20 | NUR ---
Patient reported nausea during night along with headache. Was given phenergan and tylenol PRN. Up in recliner this AM.
--- NOTE | 2021-12-30 07:02 | NUR ---
RECEIVED REPORT FROM ELISABETH SIMEON. PATIENT IS SUPINE IN BED WITH EYES CLOSED. APPEARS TO BE RESTING. VSS. CALL LIGHT WITHIN REACH. PATIENT IS COMPLAINING OF NAUSEA AT THIS TIME. WILL BRING IN MEDICATION. STILL ON LEVOPHED. ALL INT AND CENTRAL LINES IN PLACE, PATENT AND WITH GOOD BLOOD RETURN.
--- NOTE | 2021-12-30 07:44 | NUR ---
REPORT GIVEN ELISABETH DOMINGUEZ
[2021-12-30 13:21] LABS: BILIRUBIN,DIRECT 3.8 mg/dL (0.0-0.5)
--- NOTE | 2021-12-30 19:36 | NUR ---
ASSESSMENT COMPLETE AND CHARTED. PATIENT SITTING IN RECLINER WITH AT BEDSIDE. DENIES NEEDS. CALL LIGHT IN REACH.
[2021-12-31] VITALS (1101 sets, daily range): BP systolic 108–122; BP diastolic 65–109; PULSE 72–85; TEMP 97.4–98.6; O2SAT 71–100
--- NOTE | 2021-12-31 00:40 | NUR ---
DRY HEAVING. GIVEN PRN PHENERGAN
[2021-12-31 05:06] LABS: MEAN CELL VOLUME 75 fl (80.0-100.0); MEAN CORPUSCULAR HGB CONC 32 g/dl (33.0-37.0); MEAN PLATELET VOLUME 10.7 fl (7.4-10.4); PLATELET COUNT 107 K/mm3 (130-400); RED BLOOD COUNT 3.89 M/mm3 (4.20-5.60); REDCELL DISTRIBUTION WIDTH-CV 17.7 % (11.5-14.5)
[2021-12-31 05:14] LABS: HEMATOCRIT 29.2 % (42.0-52.0); HEMOGLOBIN 9.4 g/dl (13.5-18.0); MEAN CORPUSCULAR HEMOGLOBIN 24 pg (27-31)
[2021-12-31 05:23] LABS: ALBUMIN 2.4 gm/dL (3.4-4.8); BILIRUBIN,TOTAL 4.5 mg/dL (0.2-1.2); CALCIUM 8.4 mg/dL (8.4-10.2); CREATININE, serum 5.91 mg/dL (0.72-1.25); POTASSIUM 4.5 mmol/L (3.5-4.5); TOTAL PROTEIN 6.3 gm/dL (6.2-8.1)
[2021-12-31 05:44] LABS: BAND 4 % (0-10); LYMPHOCYTE 1 % (20.0-51.0); NEUTROPHILS 93 % (42.0-75.2); NUCLEATED RED BLOOD CELL 1 (0-6); PLATELET ESTIMATE DECREASED (NORMAL)
[2021-12-31 05:45] LABS: ANISOCYTOSIS 1+
--- NOTE | 2021-12-31 06:02 | NUR ---
PATIENT HAD ONE EPISODE OF NAUSEA DURING NIGHT AND WAS GIVEN PHENERGAN. OTHERWISE UNEVENFUL NIGHT. RESITNG IN BED THIS AM.
--- NOTE | 2021-12-31 09:09 | NUR ---
BEDSIDE REPORT RECEIVED FROM ELISABETH SIMEON. PT RESTING IN BED AT THIS TIME. DRIPS INFUSING ORDERED, VSS. PT DENIES NEEDS, CALL LIGHT IN REACH.
--- NOTE | 2021-12-31 23:34 | NUR ---
PATIERNT EXPERIENCING NAUSEA WITH DRY HEAVES, MEDICATION ADMINISTERED IV
[2022-01-01] VITALS (537 sets, daily range): BP systolic 105–142; BP diastolic 58–84; PULSE 64–75; TEMP 97.8–98.3; O2SAT 73–100
[2022-01-01 06:09] LABS: BASO % 0.2 % (0.0-2.0); GRAN # 13.1 K/mm3 (1.4-6.5); GRAN % 89.2 % (42.2-75.2); LYMPH # 0.4 K/mm3 (1.2-3.4); LYMPH % 2.7 % (20.0-51.0); MEAN CELL VOLUME 74 fl (80.0-100.0); MEAN CORPUSCULAR HGB CONC 33 g/dl (33.0-37.0); MEAN PLATELET VOLUME 10.1 fl (7.4-10.4); MONO % 7.1 % (1.7-9.3); PLATELET COUNT 104 K/mm3 (130-400); RED BLOOD COUNT 3.75 M/mm3 (4.20-5.60); REDCELL DISTRIBUTION WIDTH-CV 17.3 % (11.5-14.5)
[2022-01-01 06:12] LABS: HEMATOCRIT 27.7 % (42.0-52.0); HEMOGLOBIN 9.1 g/dl (13.5-18.0); MEAN CORPUSCULAR HEMOGLOBIN 24 pg (27-31)
[2022-01-01 06:29] LABS: CALCIUM 8.3 mg/dL (8.4-10.2); CREATININE, serum 7.1 mg/dL (0.72-1.25); MAGNESIUM 2.4 mg/dL (1.6-2.6); POTASSIUM 4.7 mmol/L (3.5-4.5)
--- NOTE | 2022-01-01 07:00 | NUR ---
PT RESTING IN BED. VSS. PT ON AMIO DRIP. PT HAS CALL LIGHT WITHIN REACH AND INSTRUCTED TO CALL WITH ALL NEEDS.
--- NOTE | 2022-01-01 13:18 | NUR ---
ALIS PARNELL NOTIFIED OF BG 53. PT AXOX4 AND EATING LUNCH
--- NOTE | 2022-01-01 14:04 | NUR ---
PT'S BG 64. GRAPE JUICE GIVEN. PT IS AXOX4.
[2022-01-02] VITALS (84 sets, daily range): BP systolic 106–144; BP diastolic 62–77; PULSE 66–81; TEMP 97.6–99.1; O2SAT 94–100
[2022-01-02 05:49] LABS: HEMOGLOBIN 10.1 g/dl (13.5-18.0); MEAN CELL VOLUME 75 fl (80.0-100.0); MEAN CORPUSCULAR HEMOGLOBIN 24 pg (27-31); MEAN CORPUSCULAR HGB CONC 33 g/dl (33.0-37.0); MEAN PLATELET VOLUME 10.6 fl (7.4-10.4); PLATELET COUNT 122 K/mm3 (130-400); RED BLOOD COUNT 4.14 M/mm3 (4.20-5.60); REDCELL DISTRIBUTION WIDTH-CV 17.5 % (11.5-14.5)
[2022-01-02 05:57] LABS: HEMATOCRIT 31.1 % (42.0-52.0)
[2022-01-02 06:05] LABS: CALCIUM 8.3 mg/dL (8.4-10.2); CREATININE, serum 5.65 mg/dL (0.72-1.25); POTASSIUM 3.9 mmol/L (3.5-4.5)
[2022-01-02 06:30] LABS: ANISOCYTOSIS 1+; BAND 1 % (0-10); EOSINOPHIL 3 % (0-4); LYMPHOCYTE 8 % (20.0-51.0); METAMYELOCYTE 2 % (0-0); NEUTROPHILS 76 % (42.0-75.2); NUCLEATED RED BLOOD CELL 4 (0-6); PLATELET ESTIMATE DECREASED (NORMAL)
--- NOTE | 2022-01-02 07:15 | NUR ---
Patient resting in bed; denies any pain or shortness of air at this time. Call light left within reach.
[2022-01-03] VITALS (19 sets, daily range): BP systolic 117–153; BP diastolic 54–90; PULSE 68–80; TEMP 97.5–98.9; O2SAT 87–98
[2022-01-03 06:00] LABS: MEAN CELL VOLUME 76 fl (80.0-100.0); MEAN CORPUSCULAR HGB CONC 32 g/dl (33.0-37.0); MEAN PLATELET VOLUME 10.7 fl (7.4-10.4); PLATELET COUNT 129 K/mm3 (130-400); RED BLOOD COUNT 3.82 M/mm3 (4.20-5.60); REDCELL DISTRIBUTION WIDTH-CV 17.4 % (11.5-14.5)
[2022-01-03 06:17] LABS: CALCIUM 7.5 mg/dL (8.4-10.2); CREATININE, serum 6.62 mg/dL (0.72-1.25); HEMATOCRIT 28.9 % (42.0-52.0); HEMOGLOBIN 9.3 g/dl (13.5-18.0); MEAN CORPUSCULAR HEMOGLOBIN 24 pg (27-31); POTASSIUM 4.5 mmol/L (3.5-4.5)
[2022-01-03 06:38] LABS: LYMPHOCYTE 13 % (20.0-51.0)
[2022-01-03 06:39] LABS: ANISOCYTOSIS 1+; HYPOCHROMIA 1+; MICROCYTOSIS 1+; PLATELET ESTIMATE DECREASED (NORMAL)
[2022-01-03 06:41] LABS: OVALOCYTES 1+
[2022-01-03 06:42] LABS: NEUTROPHILS 73 % (42.0-75.2)
[2022-01-03 12:00] LABS: INR 1.2 (0.8-3.0); PROTHROMBIN TIME 13.3 SECONDS (9.7-12.8)
--- NOTE | 2022-01-03 12:30 | NUR ---
Tolerated thoracentesis without difficulty. VS stable; will continue to monitor.
[2022-01-03 13:45] LABS: PLEURAL FLUID RBC 20000 /mm3 (0-0); PLEURAL FLUID WBC 945 /mm3
[2022-01-03 13:49] LABS: PLEURAL FLUID APPEARANCE HAZY; PLEURAL FLUID COLOR AMBER
--- NOTE | 2022-01-03 14:00 | NUR ---
Assisted up to medical floor for dialysis. Alert and oriented and in no distress upon transfer.
--- NOTE | 2022-01-03 18:16 | NUR ---
Returned to the unit from Dialysis. Alert and oriented per usual. VS stable.
[2022-01-04] VITALS (13 sets, daily range): BP systolic 122–147; BP diastolic 52–69; PULSE 75–92; TEMP 97.4–100.2; O2SAT 97–100
[2022-01-04 06:41] LABS: MEAN CELL VOLUME 79 fl (80.0-100.0); MEAN CORPUSCULAR HEMOGLOBIN 25 pg (27-31); MEAN CORPUSCULAR HGB CONC 32 g/dl (33.0-37.0); MEAN PLATELET VOLUME 10.1 fl (7.4-10.4); PLATELET COUNT 138 K/mm3 (130-400); RED BLOOD COUNT 4.01 M/mm3 (4.20-5.60); REDCELL DISTRIBUTION WIDTH-CV 18.4 % (11.5-14.5)
[2022-01-04 06:44] LABS: HEMATOCRIT 31.6 % (42.0-52.0)
[2022-01-04 07:00] LABS: CALCIUM 8.3 mg/dL (8.4-10.2); CREATININE, serum 5.67 mg/dL (0.72-1.25); POTASSIUM 4.2 mmol/L (3.5-4.5)
[2022-01-04 07:36] LABS: HYPOCHROMIA 2+; MICROCYTOSIS 1+; POLYCHROMASIA 1+
[2022-01-04 07:37] LABS: ANISOCYTOSIS 1+; PLATELET ESTIMATE NORMAL (NORMAL)
--- NOTE | 2022-01-04 07:41 | NUR ---
REPORT RECEIVED FROM ELISABETH DHALIWAL; PATIENT UP IN CHAIR AND ORDERED BREAKFAST THIS MORNING. PATIENT'S VITAL SIGNS ARE WITHIN NORMAL LIMITS, WITH THE EXCEPTION OF HIS LAST BLOOD PRESSURE READING WHICH WAS SLIGHTLY ELEVATED. PATIENT HAS NO FLUIDS/MEDS RUNNING THROUGH HIS RIGHT IJ CENTRAL LINE.
[2022-01-04 07:46] LABS: BAND 4 % (0-10); EOSINOPHIL 5 % (0-4); NEUTROPHILS 69 % (42.0-75.2)
[2022-01-04 07:47] LABS: LYMPHOCYTE 11 % (20.0-51.0); METAMYELOCYTE 1 % (0-0)
--- NOTE | 2022-01-04 11:58 | NUR ---
PATIENT WENT TO DIALYSIS AGAIN TODAY FOR FLUID OVERLOAD; PATIENT WAS BROUGHT UP AT APPROX 1100 THIS MORNING.
--- NOTE | 2022-01-04 13:47 | NUR ---
green chain worker contacted patient's spouse as patient is currently at dialysis. Worker provided information on home health as it is recommended. states they had home health previously. Worker advised that a Medicare.gov share document was left in patient's room for her to view this evening. Worker will follow up on 01/05/22 for home health choice for possible discharge tomorrow. Patient plans to return home with spouse.
--- NOTE | 2022-01-04 13:50 | NUR ---
harm reduction worker confirmed that patient's living will and durable power of traffic law attorney was received by spouse and is currently on the medical record.
--- NOTE | 2022-01-04 15:35 | NUR ---
Patient is sleeping at this time. reinforcing iron worker helper left Medicare.gov share for home health and the IM form in patient's room. Patient's nurse will make sure that spouse reviews documents and worker will follow up on 01/05/22.
--- NOTE | 2022-01-04 18:05 | NUR ---
PT TRANSFERED FROM ICU5. PT AMBULATED TO BED RESTROOM. DINNER BEDSIDE. PT ORIENTED TO ROOM AND FLOOR. PT INSTRUCTED LASTEX THREAD WINDER LIGHT AND TO CALL WITH ALL NEEDS.
--- NOTE | 2022-01-04 19:21 | NUR ---
Pt refusing tx at this time. Hospitalist notified of multiple refusals.
--- NOTE | 2022-01-04 22:46 | NUR ---
PT IN BED DURING ASSESSMENT. CENTRAL LINE DRESSING INTACT WITH NO DRAINAGE NOTED. PT HAS NO COMPLAINTS AT THIS TIME.
[2022-01-05] VITALS (7 sets, daily range): BP systolic 123–145; BP diastolic 53–76; PULSE 72–81; TEMP 98.1–99.4
--- NOTE | 2022-01-05 00:16 | NUR ---
PT REQUESTS TO SIT ON SIDE OF BED AT THIS TIME. BED ALARM SET AND CALL LIGHT WITHIN REACH
--- NOTE | 2022-01-05 04:57 | NUR ---
PT SPENT SEVERAL HOURS UP IN CHAIR DURING SHIFT WITH SKIN BREAKDOWN INFLATABLE PAD/ WAFFLE CUSHION UNDER HIM. CHAIR ALARM HAD BEEN SET, NOW PT RETURNED TO BED. BED ALARM SET
--- NOTE | 2022-01-05 06:35 | NUR ---
appears to be sleeping, bedside shift report received from ELISABETH Pa
--- NOTE | 2022-01-05 08:45 | NUR ---
continues to sleep, awakened and full assessment completed, see interventions for further info, assisted out of bed and into recliner, gait is unsteady without the use of walker, breakfast ordered, provided sprite per his request denies other needs
--- NOTE | 2022-01-05 09:58 | NUR ---
Leda Eaton APRN in to see patient, radilogy in now completing chest xray
[2022-01-05 10:36] LABS: MEAN CELL VOLUME 78 fl (80.0-100.0); MEAN CORPUSCULAR HEMOGLOBIN 25 pg (27-31); MEAN CORPUSCULAR HGB CONC 32 g/dl (33.0-37.0); MEAN PLATELET VOLUME 10.2 fl (7.4-10.4); PLATELET COUNT 167 K/mm3 (130-400); RED BLOOD COUNT 4.43 M/mm3 (4.20-5.60); REDCELL DISTRIBUTION WIDTH-CV 19.3 % (11.5-14.5)
[2022-01-05 10:45] LABS: HEMATOCRIT 34.6 % (42.0-52.0)
[2022-01-05 10:54] LABS: ALBUMIN 2.4 gm/dL (3.4-4.8); CALCIUM 8.1 mg/dL (8.4-10.2); CREATININE, serum 5.46 mg/dL (0.72-1.25); POTASSIUM 4.2 mmol/L (3.5-4.5)
[2022-01-05 11:00] LABS: ANISOCYTOSIS 1+; BAND 8 % (0-10); HYPOCHROMIA 2+; LYMPHOCYTE 3 % (20.0-51.0); MICROCYTOSIS 1+; NEUTROPHILS 77 % (42.0-75.2); PLATELET ESTIMATE NORMAL (NORMAL)
[2022-01-05 11:03] LABS: OVALOCYTES 1+
--- NOTE | 2022-01-05 12:18 | NUR ---
remains up in chair, Dr Camarillo in to see patient
--- NOTE | 2022-01-05 15:30 | NUR ---
right IJ wrapped with plastic and he was assisted into shower by THERAPEUTIC ASSISTANT and his is standing by to assist
--- NOTE | 2022-01-05 16:35 | NUR ---
is sitting up in chair after having had a shower, at bedside, denies needs
--- NOTE | 2022-01-05 16:57 | NUR ---
OLU met with patient to see if he knew what HH agency his picked from the [facility].gov list. Patient is unaware. Phone call made to Jose Elias and was unsuccessful. Message left.
--- NOTE | 2022-01-05 18:55 | NUR ---
bedside shift report given to ELISABETH Starkey
--- NOTE | 2022-01-05 20:00 | NUR ---
PT SITTING IN CHAIR AT BEDSIDE. IS ALERT AND ORIENTED X4. HAS RIJ AND RFA FISTULA.
--- NOTE | 2022-01-05 21:00 | NUR ---
PT IN BED. RFA FISTULA WITH GOOD BRUIT/THRILL. VOIDING PER URINAL. TAKES HS MEDS WITHOUT PROBLEM.
--- NOTE | 2022-01-05 23:30 | NUR ---
PT ASSISTED TO CHAIR WITH ONE ASSIST AND WALKER. DOES WELL.
[2022-01-06 03:53] VITALS: BP 120/42; PULSE 76; TEMP 98.7
--- NOTE | 2022-01-06 06:00 | NUR ---
PT ASSISTED BACK TO BED.
[2022-01-06 07:48] VITALS: BP 129/53; PULSE 75; TEMP 97.9
--- NOTE | 2022-01-06 09:46 | NUR ---
PT UP TO RECLINER FOR BREAKFAST AFTER VOIDING 150 MLS CLEAR YELLOW URINE. PT DENIES NEEDS. PLAN ON DIALYSIS THEN DISCHARGE HOME THIS PM.
[2022-01-06 10:25] LABS: HEMOGLOBIN 10.3 g/dl (13.5-18.0); MEAN CELL VOLUME 77 fl (80.0-100.0); MEAN CORPUSCULAR HEMOGLOBIN 25 pg (27-31); MEAN CORPUSCULAR HGB CONC 32 g/dl (33.0-37.0); MEAN PLATELET VOLUME 9.9 fl (7.4-10.4); PLATELET COUNT 171 K/mm3 (130-400); RED BLOOD COUNT 4.14 M/mm3 (4.20-5.60); REDCELL DISTRIBUTION WIDTH-CV 19.2 % (11.5-14.5)
[2022-01-06 10:28] LABS: HEMATOCRIT 31.9 % (42.0-52.0)
[2022-01-06 10:39] LABS: ALBUMIN 2.4 gm/dL (3.4-4.8); CALCIUM 8.7 mg/dL (8.4-10.2); CREATININE, serum 6.69 mg/dL (0.72-1.25); POTASSIUM 4.1 mmol/L (3.5-4.5); TOTAL PROTEIN 6.4 gm/dL (6.2-8.1)
[2022-01-06 11:05] LABS: LYMPHOCYTE 11 % (20.0-51.0); MICROCYTOSIS 1+; NEUTROPHILS 86 % (42.0-75.2)
[2022-01-06 11:06] LABS: ANISOCYTOSIS 2+; HYPOCHROMIA 1+; PLATELET ESTIMATE NORMAL (NORMAL)
[2022-01-06] MEDS ORDERED: LEVAQUIN 750MG750 M1 PO (11:32)
[2022-01-06] MEDS ORDERED: CLEOCIN HCL300 MG PO (11:35)
[2022-01-06] MEDS ORDERED: FLAGYL500 MG PO (11:36)
--- NOTE | 2022-01-06 12:22 | NUR ---
Printing Press Machinist contacted patient spouse Jose Elias to discuss agency choice. She would like to pursue [facility] as they have received services there and were satisfied, liking their nurse in particular. Spouse consents to a referral to [facility] sent. Patient's adult son is at home with the family today, and plans to stay with patient at home, while they watch the football game together. Spouse supports patient discharge today, and is hopeful patient can be discharged by 14:00. HH referral faxed to [facility]. Printing Press Machinist confirms plan of care with Jayce BARBER and Dr. Camarillo. Patient is updated, and in support as he is now in dialysis. material worker faxed completed discharge orders and contacted [facility] to confirm referral; RN Narda Matt is familiar with patient and family from working with them in the past. She accepts patient referral and will connect with family today to establish service. She states therapies will be able to initiate service with patient Saturday or Saturday due to the holiday this . Dr. Camarillo and Jayce BARBER updated. Printing Press Machinist updates patient spouse, who expresses delight with services and is looking forward to working again with [facility]. *Discharge plan: to home with dialysis and [facility], family support and supervision*
--- NOTE | 2022-01-06 14:32 | NUR ---
DISCHARGE INSTSRUCTIONS REVIEWED WITH PT AND , QUESTIONS SOLICITED AND ANSWERED. CENTRAL LINE DISCONTINUED PER PROCESESS. PT TOLERATED WELL. PRESSURE HELD UNTIL HEMOSTASIS ACHIEVED. PT LEFT UNIT PER WHEEL CHAIR. HOME MEDS RETURNED.
--- NOTE | 2022-01-07 11:10 | NUR ---
Narda BARBER from [facility] HH calls to notify did not receive HH orders and med list in referral packet. Gas Fitter Helper re-faxed discharge orders and medication list.
== END 2022-01-06 14:36 | disposition home or self-care (01) | DRG 871 ==
LOC: COL.ER 21:10 → ICU 12-28 00:08 → SURG 01-04 18:11
PROVIDERS: Emergency Medicine; Hospitalist; Internal Medicine; Internal Medicine Cardiovascular Disease; Internal Medicine Pulmonary Disease; Nurse Practitioner Family; Registered Nurse; Student in an Organized Health Care Education/Training Program; ADMIT Internal Medicine Nephrology
PROC: 02HV33Z Insertion of Infusion Device into Superior Vena Cava, Percutaneous Approach (ICD-10-PCS; 2021-12-28)
PROC: 5A1D70Z Performance of Urinary Filtration, Intermittent, Less than 6 Hours Per Day (ICD-10-PCS; principal; 2021-12-29)
PROC: 0W993ZX Drainage of Right Pleural Cavity, Percutaneous Approach, Diagnostic (ICD-10-PCS; 2022-01-03)
DX: A41.59 Other Gram-negative sepsis (principal); R65.21 Severe sepsis with septic shock; J18.9 Pneumonia, unspecified organism; N18.6 End stage renal disease; J96.01 Acute respiratory failure with hypoxia; K72.00 Acute and subacute hepatic failure without coma; G93.41 Metabolic encephalopathy; I12.0 Hypertensive chronic kidney disease with stage 5 chronic kidney disease or end stage renal disease; E87.2 Acidosis; D84.9 Immunodeficiency, unspecified; J91.8 Pleural effusion in other conditions classified elsewhere; T86.11 Kidney transplant rejection; D61.818 Other pancytopenia; K92.2 Gastrointestinal hemorrhage, unspecified; D64.9 Anemia, unspecified; Z20.822 Contact with and (suspected) exposure to COVID-19; E11.65 Type 2 diabetes mellitus with hyperglycemia; I25.10 Atherosclerotic heart disease of native coronary artery without angina pectoris; E11.22 Type 2 diabetes mellitus with diabetic chronic kidney disease; E11.40 Type 2 diabetes mellitus with diabetic neuropathy, unspecified; D63.1 Anemia in chronic kidney disease; G72.89 Other specified myopathies; E66.9 Obesity, unspecified; I95.9 Hypotension, unspecified; E80.6 Other disorders of bilirubin metabolism; E78.5 Hyperlipidemia, unspecified; K21.9 Gastro-esophageal reflux disease without esophagitis; M10.9 Gout, unspecified; G47.33 Obstructive sleep apnea (adult) (pediatric); E11.649 Type 2 diabetes mellitus with hypoglycemia without coma; I48.0 Paroxysmal atrial fibrillation; B96.89 Other specified bacterial agents as the cause of diseases classified elsewhere; B96.7 Clostridium perfringens [C. perfringens] as the cause of diseases classified elsewhere; Z23 Encounter for immunization; Z79.82 Long term (current) use of aspirin; Z79.4 Long term (current) use of insulin; Z99.2 Dependence on renal dialysis; Z95.5 Presence of coronary angioplasty implant and graft; Z88.5 Allergy status to narcotic agent; Z88.8 Allergy status to other drugs, medicaments and biological substances; Z79.01 Long term (current) use of anticoagulants; Z85.528 Personal history of other malignant neoplasm of kidney; Z68.36 Body mass index [BMI] 36.0-36.9, adult
CPT/HCPCS: C9113; J0282; J1650; J1720; J1815; J2405; J2543; J2550; J3370; J3475; J7040; J7050; J7060; J7512; Q5105

== ENCOUNTER 2023-09-11 00:09 | Inpatient (IN) | payer MEDICARE, OTHER ==
[~2023-09-11] VITALS: Ht 185.4 cm; Wt 119.5 kg
[~2023-09-11 00:09] MED LIST changes: +CEFTIN500 MG PO; +CLEOCIN HCL300 MG PO; +FIASP 100100 UNIT/1 SQ; +FLAGYL500 MG PO; +LEVAQUIN 750MG750 M1 PO; +MONODOX100 PO; +MUCINEX 60600 MG/TA1 PO; -NOVOLOG 100U100 U/M1 SC; +TAMIFLU30 MG PO; +TYLENOL SU650 MG/SUP RC
[2023-09-11 00:47] LABS: BASO # 0.1 K/mm3 (0.0-0.2); BASO % 0.5 % (0.0-2.0); EOS % 0.2 % (0.0-4.0); GRAN # 7.5 K/mm3 (1.4-6.5); GRAN % 76.7 % (42.2-75.2); HEMOGLOBIN 11.4 g/dl (13.5-18.0); LYMPH # 0.9 K/mm3 (1.2-3.4); LYMPH % 9.5 % (20.0-51.0); MEAN CELL VOLUME 79 fl (80.0-100.0); MEAN CORPUSCULAR HEMOGLOBIN 25 pg (27-31); MEAN CORPUSCULAR HGB CONC 31 g/dl (33.0-37.0); MEAN PLATELET VOLUME 9.7 fl (7.4-10.4); MONO # 1.2 K/mm3 (0.1-0.6); PLATELET COUNT 134 K/mm3 (130-400); RED BLOOD COUNT 4.62 M/mm3 (4.20-5.60)
[2023-09-11 00:58] LABS: HEMATOCRIT 36.7 % (42.0-52.0)
[2023-09-11 01:09] LABS: ALBUMIN 2.8 g/dL (3.4-4.8); BILIRUBIN,TOTAL 1.1 mg/dL (0.2-1.2); CALCIUM 8.7 mg/dL (8.4-10.2); CREATININE, serum 5.12 mg/dL (0.72-1.25); POTASSIUM 4.7 mEq/L (3.5-4.5); TOTAL PROTEIN 6.4 g/dl (6.2-8.1)
[2023-09-11 01:34] LABS: COLLECTION METHOD CLEAN CATCH
[2023-09-11 01:43] LABS: URINE APPEARANCE TURBID (CLEAR/HAZY); URINE BLOOD 3+ (NEGATIVE); URINE COLOR Dark Yellow (YELLOW); URINE GLUCOSE 2+ (NEGATIVE); URINE KETONE TRACE (NEGATIVE); URINE NITRATE NEGATIVE (NEGATIVE); URINE PROTEIN(semi-quant) 2+ (NEGATIVE)
[2023-09-11] MEDS ORDERED: NS 500 ML IV ONE (01:45)
[2023-09-11 01:55] LABS: C-REACTIVE PROTEIN 5.36 mg/dL (0.00-0.50)
[2023-09-11 01:59] LABS: SQUAMOUS EPITHELIAL 0-2 /hpf (0-10); URINE BACTERIA MANY /hpf (NONE SEEN); URINE WBC >50 /hpf (0-2)
[2023-09-11 02:05] LABS: TROPONIN-I 0.202 ng/mL (0.00-0.033)
[2023-09-11] MEDS ORDERED: Ondansetron 4 MG/2 ML VIAL IV PRN (03:00)
[2023-09-11] MEDS ORDERED: Doxycycline Hyclate 100 MG in NS 150 ML IV SCH (03:00)
[2023-09-11] MEDS ORDERED: Acetaminophen 325 MG TAB PO PRN (03:00)
[2023-09-11] MEDS ORDERED: Albuterol/Ipratropium 3 MG-0.5 MG/3 ML Neb Soln IH PRN (03:00)
[2023-09-11] MEDS ORDERED: Dextrose (Glucose) 15 GM (4 x 3.75 GM) Chewable TABLET PACK PO PRN (03:15)
[2023-09-11] MEDS ORDERED: Dextrose 50% Water 25 GM/50 ML SYRINGE IV PRN (03:15)
[2023-09-11] MEDS ORDERED: Glucagon 1 MG VIAL IM PRN (03:15)
[2023-09-11] MEDS ORDERED: NS 1,000 ML IV ONE (03:30)
--- NOTE | 2023-09-11 04:59 | NUR ---
Patient arrived to room 351 via cart from ER accompanied by . Oriented and patient to room. Patient was very drowsy during admission. Currently on 2L O2 via nasal cannula. Call light within reach. Bed alarm on.
[2023-09-11 05:27] VITALS: BP 144/63; PULSE 85; TEMP 99.1
[2023-09-11] MEDS ORDERED: Insulin Lispro (HumaLOG) SQ SCH (08:00)
[2023-09-11] MEDS ORDERED: Heparin 5,000 UNITS/ML 1 ML VIAL SQ SCH (09:00)
[2023-09-11] MEDS ORDERED: Sennosides/Docusate 8.6-50 MG TAB PO SCH (09:00)
[2023-09-12] VITALS (9 sets, daily range): BP systolic 100–156; BP diastolic 54–79; PULSE 67–77; TEMP 97.7–99.5
--- NOTE | 2023-09-12 16:35 | NUR ---
LATE ENTRY FROM 09/11/23 Sidewalk Inspector met with patient s , Naren at bedside to complete initial intake while patient slept. Patient lives in [place] with his and sees Dr. Waters at [facility] for primary care. Patient uses [facility] for medications. Patient has a walker and transport chair available at home. When SW asked if patient was independent with ADLS, Naren stated somewhat . Naren assists patient with ADLS as needed. She advised patient showers independently but she helps with getting him dried off and dressed. Patient has a CPAP at home but Naren advised patient does not like to wear it. Naren also reported she is patient s DPOA-HC. Plan is for discharge home.
--- NOTE | 2023-09-12 16:36 | NUR ---
Rolling Machine Operator Automatic spoke with Hospitalist who advised patient will need post acute rehab. SW met with patient's , Naren at bedside while patient slept. Naren would like a referral sent to [facility] along with the three SNF facilities [facility]: [facility], [facility], and [facility]. Naren advised patient has been to [facility] before and it wasn't the best experience but she thinks she may have incorrect expectations. OLU contacted Kaylynn, [facility] Director to give referral and there is concern with patient's ability to tolerate three hours. SW will fax referrals to SNF tomorrow.
--- NOTE | 2023-09-12 18:44 | NUR ---
Patient alert and oriented to self, situation, and location. Shift assessment complete this morning. Patient has denied pain all shift, been resting in bed with family at bedside. Likes to sit up at edge of bed with HOB elevated for lean support when eating meals. Tolerating meals well. Voices no concerns. Call light within reach, all needs met at this time.
[2023-09-12] MEDS ORDERED: Heparin 1,000 UNITS/ML 10 ML Multi-Dose VIAL ICA SCH (18:45)
[2023-09-12] MEDS ORDERED: Heparin 1,000 UNITS/ML 10 ML Multi-Dose VIAL IV SCH (18:45)
--- NOTE | 2023-09-12 22:50 | NUR ---
PATIENT RESTING IN BED WITH TV ON WITH AT BEDSIDE WITH NO ACUTE DISTRESS NOTED. PATIENT ON 1 LITER OF OXYGEN VIA NC. INT TO LEFT WRIST INTACT WITH NO COMPLICATIONS NOTED. ASSESSMENT AND MEDICATION ADMINISTRATION COMPLETED AT THIS TIME. PATIENT TOLERATED WELL. PATIENT DENIES ANY NEEDS AT THIS TIME. ASKED FOR CUP OF ICE AND WAS GIVEN. BED IN LOW POSITION WITH WHEELS LOCKED WITH RAILS UP X3 AND CALL LIGHT WITHIN REACH. BED ALARM ON.
[2023-09-13] VITALS (12 sets, daily range): BP systolic 105–156; BP diastolic 53–73; PULSE 66–88; TEMP 97.5–99.1
[2023-09-13 06:04] LABS: BASO % 0.4 % (0.0-2.0); EOS # 0.1 K/mm3 (0.0-0.7); EOS % 1.1 % (0.0-4.0); GRAN # 4.2 K/mm3 (1.4-6.5); GRAN % 75.1 % (42.2-75.2); HEMATOCRIT 40.8 % (42.0-52.0); HEMOGLOBIN 12.5 g/dl (13.5-18.0); LYMPH # 0.5 K/mm3 (1.2-3.4); LYMPH % 9.2 % (20.0-51.0); MEAN CELL VOLUME 79 fl (80.0-100.0); MEAN CORPUSCULAR HEMOGLOBIN 24 pg (27-31); MEAN CORPUSCULAR HGB CONC 31 g/dl (33.0-37.0); MEAN PLATELET VOLUME 10.2 fl (7.4-10.4); MONO # 0.8 K/mm3 (0.1-0.6); MONO % 13.7 % (1.7-9.3); PLATELET COUNT 76 K/mm3 (130-400); RED BLOOD COUNT 5.18 M/mm3 (4.20-5.60); REDCELL DISTRIBUTION WIDTH-CV 19.5 % (11.5-14.5)
[2023-09-13 06:43] LABS: CALCIUM 8.3 mg/dL (8.4-10.2); CREATININE, serum 6.35 mg/dL (0.72-1.25); POTASSIUM 4.3 mEq/L (3.5-4.5)
--- NOTE | 2023-09-13 12:10 | NUR ---
Dialysis Note Pt arrived to inot via bed. Uf goal set for 3.0 kg and 3.0 kg removed. Pt tolerated tx well and dcd back to room via bed. Pt voiced no concerns
[2023-09-13] MEDS ORDERED: LEVOFLOXACIN 750 MG/150 ML IV SCH (14:00)
--- NOTE | 2023-09-13 16:26 | NUR ---
Fundraising Assistant faxed referrals to [facility]. Mary at [facility] declined referral. Rajendra GUTHRIEV is reviewing referral and needs to check cost of patient's medications.
--- NOTE | 2023-09-13 17:39 | NUR ---
Patient alert and oriented at baseline. Shift assessment complete this morning. Patient to dialysis this morning, tolerated well per dialysis nurse. at bedside. Patient is more active than yesterday, tolerating PT/OT well and ambulated in hallway. Tolerating food and fluids well. Denies pain or discomfort, states he just has fatigue still. Call light within reach, all needs met at this time.
--- NOTE | 2023-09-13 22:00 | NUR ---
Pt. laying in bed. Pt. is A&OX3, assessment complete. INT to lt. wrist patent. Pt. denies pain or other needs, call light within reach.
[2023-09-14] VITALS (11 sets, daily range): BP systolic 103–121; BP diastolic 58–71; PULSE 60–69; TEMP 97.3–98.6
[2023-09-14 06:02] LABS: BASO % 0.4 % (0.0-2.0); EOS # 0.1 K/mm3 (0.0-0.7); EOS % 1.3 % (0.0-4.0); GRAN # 3.7 K/mm3 (1.4-6.5); GRAN % 68.8 % (42.2-75.2); HEMOGLOBIN 11.1 g/dl (13.5-18.0); LYMPH # 0.7 K/mm3 (1.2-3.4); LYMPH % 12.4 % (20.0-51.0); MEAN CELL VOLUME 78 fl (80.0-100.0); MEAN CORPUSCULAR HEMOGLOBIN 24 pg (27-31); MEAN CORPUSCULAR HGB CONC 31 g/dl (33.0-37.0); MEAN PLATELET VOLUME 9.7 fl (7.4-10.4); MONO # 0.9 K/mm3 (0.1-0.6); MONO % 16.2 % (1.7-9.3); PLATELET COUNT 101 K/mm3 (130-400); RED BLOOD COUNT 4.59 M/mm3 (4.20-5.60); REDCELL DISTRIBUTION WIDTH-CV 18.9 % (11.5-14.5)
[2023-09-14 06:08] LABS: HEMATOCRIT 35.9 % (42.0-52.0)
[2023-09-14 06:10] LABS: CALCIUM 8.8 mg/dL (8.4-10.2); CREATININE, serum 4.35 mg/dL (0.72-1.25); POTASSIUM 3.9 mEq/L (3.5-4.5)
--- NOTE | 2023-09-14 08:06 | NUR ---
PATIENT SITTING UP AT EDGE OF BED. CALL LIGHT WITHIN REACH. FALL PRECAUTIONS IN PLCAE. PATIENTS ONLY COMPLAINT AT THIS TIME IS CHRONIC LOWER BACK PAIN, PATIENT REQUESTED TYLENOL. PATIENTS AT BEDSIDE.
--- NOTE | 2023-09-14 21:20 | NUR ---
Pt. laying in bed with at bedside. Pt. is A&OX3, assessment complete. INT lt. wrist patent. Pt. fistula noted to rt. arm. Pt. denies pain or other needs, call light within reach.
[2023-09-15] VITALS (11 sets, daily range): BP systolic 89–134; BP diastolic 53–75; PULSE 59–68; TEMP 97.4–98
[2023-09-15] MEDS ORDERED: levoFLOXacin 500 MG TAB PO SCH (09:00)
[2023-09-15] MEDS ORDERED: Heparin 1,000 UNITS/ML 10 ML Multi-Dose VIAL IV SCH (15:15)
--- NOTE | 2023-09-15 22:00 | NUR ---
PATIENT RESTING IN BED. AT BEDSIDE. SHIFT ASSESSMENT COMPLETE. DENIES NEEDS OR CONCERNS AT THIS TIME.
[2023-09-16] VITALS (8 sets, daily range): BP systolic 89–146; BP diastolic 62–72; PULSE 62–77; TEMP 98–98.3
--- NOTE | 2023-09-16 00:21 | NUR ---
CECE HESS NOTIFIED OF PATIENT'S BP OF 89/53. PATIENT IS ASYMPTOMATIC. SEE NEW ORDERS
[2023-09-16] MEDS ORDERED: NS 250 ML IV ONE (00:30)
--- NOTE | 2023-09-16 01:30 | NUR ---
NS FINISHED INFUSING. PATIENT'S BP IMPROVED.
--- NOTE | 2023-09-16 05:56 | NUR ---
LAB CALLED TO NOTIFY POSITIVE BLOOD CULTURES.
[2023-09-16 07:06] LABS: BASO % 0.5 % (0.0-2.0); GRAN # 2.5 K/mm3 (1.4-6.5); GRAN % 63.8 % (42.2-75.2); HEMOGLOBIN 10.6 g/dl (13.5-18.0); LYMPH # 0.7 K/mm3 (1.2-3.4); LYMPH % 17.3 % (20.0-51.0); MEAN CELL VOLUME 80 fl (80.0-100.0); MEAN CORPUSCULAR HEMOGLOBIN 24 pg (27-31); MEAN CORPUSCULAR HGB CONC 30 g/dl (33.0-37.0); MEAN PLATELET VOLUME 9.5 fl (7.4-10.4); MONO # 0.7 K/mm3 (0.1-0.6); MONO % 16.6 % (1.7-9.3); PLATELET COUNT 129 K/mm3 (130-400); RED BLOOD COUNT 4.35 M/mm3 (4.20-5.60); REDCELL DISTRIBUTION WIDTH-CV 18.4 % (11.5-14.5)
[2023-09-16 07:19] LABS: HEMATOCRIT 34.9 % (42.0-52.0)
[2023-09-16 07:29] LABS: CALCIUM 8.8 mg/dL (8.4-10.2); CREATININE, serum 5.44 mg/dL (0.72-1.25)
--- NOTE | 2023-09-16 11:31 | NUR ---
0830-PT TAKEN TO HD BY WHEELCHAIR.
[2023-09-16] MEDS ORDERED: predniSONE 5 MG TAB PO SCH (12:00)
--- NOTE | 2023-09-16 12:08 | NUR ---
Dialysis Note Pt asrrived to unot via WC. Uf goal set for 1.0 kg and 1.0 kg removed. Pt tolerated tx well and dcd back to room via WC without complaints.
[2023-09-16] MEDS ORDERED: DITROPAN XL 5MG5 M1 PO (13:15)
[2023-09-16] MEDS ORDERED: XANAX .25M0.25 MG/TA PO (13:26)
--- NOTE | 2023-09-16 14:26 | NUR ---
1405-REPORT CALLED TO PAMELA BABRER AT [facility]. ALL QUESTIONS ANSWERED. IV AND TELE REMOVED. PT UPDATED ON DISCHARGE AND TRANSPORT AT 153.
[2023-09-16] MEDS ORDERED: LEVAQUIN 5500 MG/TA1 PO (14:38)
--- NOTE | 2023-09-16 15:20 | NUR ---
Communication Specialist sent clinical updates to Rajendra at [facility] who advised he can accept today. OUL confirmed dialysis time of MWF at 0600 and provided it to Rajendra. OLU contacted patient's , Naren to provide update. Naren advised she made a follow up appointment with Dr. Waters, PCP for 09/23/23 @8841. OLU provided this to microfilm duplicating unit supervisor. OLU met with patient who stated he prefered to go home, but is agreeable to rehab at [facility] as he still isn't very steady on his feet. OLU reviewed IM form with patient who verbalized understanding and provided signature. OLU placed form in chart and provided copy to patient. OLU sent discharge orders to Axton at [facility] and transport time was set for 1530. OLU provided transport time to , Naren. Discharge Plan: [facility] SNF
--- NOTE | 2023-09-16 16:00 | NUR ---
PT PICKED UP BY [facility]IA [facility]. PAPERWORK GIVEN TO CALL PERSON. HOME MEDICATIONS GIVEN TO .
== END 2023-09-16 16:01 | DRG 871 ==
LOC: COL.ER 00:09 → MEDICAL 02:16
PROVIDERS: Emergency Medicine; Internal Medicine; Physician Assistant; ADMIT Internal Medicine
DX: A41.59 Other Gram-negative sepsis (principal); J18.9 Pneumonia, unspecified organism; N18.6 End stage renal disease; N39.0 Urinary tract infection, site not specified; Z94.0 Kidney transplant status; I12.0 Hypertensive chronic kidney disease with stage 5 chronic kidney disease or end stage renal disease; Z20.822 Contact with and (suspected) exposure to COVID-19; E11.22 Type 2 diabetes mellitus with diabetic chronic kidney disease; E11.40 Type 2 diabetes mellitus with diabetic neuropathy, unspecified; I44.0 Atrioventricular block, first degree; J30.2 Other seasonal allergic rhinitis; E78.5 Hyperlipidemia, unspecified; I48.91 Unspecified atrial fibrillation; K21.9 Gastro-esophageal reflux disease without esophagitis; F41.9 Anxiety disorder, unspecified; R53.81 Other malaise; G47.33 Obstructive sleep apnea (adult) (pediatric); Z95.818 Presence of other cardiac implants and grafts; Z99.2 Dependence on renal dialysis; Z85.118 Personal history of other malignant neoplasm of bronchus and lung; Z85.528 Personal history of other malignant neoplasm of kidney; Z90.5 Acquired absence of kidney; Z88.5 Allergy status to narcotic agent; Z88.8 Allergy status to other drugs, medicaments and biological substances; Z99.89 Dependence on other enabling machines and devices; Z91.199 Patient's noncompliance with other medical treatment and regimen due to unspecified reason; Z79.4 Long term (current) use of insulin; Z79.899 Other long term (current) drug therapy; Z87.891 Personal history of nicotine dependence; Z23 Encounter for immunization
CPT/HCPCS: J1644; J1815; J1956; J2543; J3370; J7030; J7040; J7050; J7512; Q3014

== ENCOUNTER 2023-11-03 16:33 | Emergency (ER) | payer MEDICARE, OTHER ==
[~2023-11-03] VITALS: Ht 185.4 cm; Wt 115.5 kg
[~2023-11-03 16:33] MED LIST changes: +DITROPAN XL 5MG5 M1 PO; +LEVAQUIN 5500 MG/TA1 PO; +XANAX .25M0.25 MG/TA PO
[2023-11-03 16:42] VITALS: TEMP 97.5
[2023-11-03] MEDS ORDERED: PERCOCET 325 MG1 TA2 PO (19:39)
[2023-11-03] MEDS ORDERED: Home oxyCODONE/Acetaminophen 5/325 MG #4 TAB/PACK PO ONE (19:45)
[2023-11-03 19:53] VITALS: BP 173/86; PULSE 67
== END 2023-11-03 19:53 | disposition home or self-care (01) ==
LOC: COL.ER 16:33
DX: S09.90XA Unspecified injury of head, initial encounter (principal); S16.1XXA Strain of muscle, fascia and tendon at neck level, initial encounter; V27.49XA Other motorcycle driver injured in collision with fixed or stationary object in traffic accident, initial encounter; Y93.55 Activity, bike riding; Y92.410 Unspecified street and highway as the place of occurrence of the external cause

== ENCOUNTER 2023-12-17 00:04 | Emergency (ER) | payer MEDICARE, OTHER ==
[~2023-12-17] VITALS: Ht 185.4 cm; Wt 115.9 kg
[2023-12-17 00:18] VITALS: TEMP 97.7
[2023-12-17] MEDS ORDERED: Hydrocortisone 2.5% Cream 28.35 GM TUBE TOP ONE (02:15)
[2023-12-17] MEDS ORDERED: Lidocaine 2% (20 MG/ML) 20 ML UROJET TOP ONE (02:15)
[2023-12-17 02:43] VITALS: BP 153/75; PULSE 74
== END 2023-12-17 02:43 | disposition home or self-care (01) ==
LOC: COL.ER 00:04
DX: K59.03 Drug induced constipation (principal); T40.2X5A Adverse effect of other opioids, initial encounter; E11.22 Type 2 diabetes mellitus with diabetic chronic kidney disease; N18.6 End stage renal disease; Z99.2 Dependence on renal dialysis

== ENCOUNTER → 2023-12-25 | Outpatient (REF) | payer MEDICARE, OTHER ==
[~2023-12-25] MED LIST changes: +CRANBERRY500 M3 PO; +MIRALAX PA17 GM/Dose PO; +PROBIOTIC BLEN1 EACH PO
[2023-12-25 14:27] LABS: BAND 5 % (0-10); LYMPHOCYTE 7 % (20.0-51.0); NEUTROPHILS 85 % (42.0-75.2)
[2023-12-25 14:28] LABS: HYPOCHROMIA 2+
[2023-12-25 14:29] LABS: OVALOCYTES 1+
== END ==
LOC: ZCOL.LAB 12:05
PROVIDERS: Family Medicine
DX: Z85.528 Personal history of other malignant neoplasm of kidney (principal)

== ENCOUNTER 2024-01-05 16:43 | Inpatient (IN) | payer MEDICARE ==
[~2024-01-05] VITALS: Ht 185.4 cm; Wt 111.8 kg
[~2024-01-05 16:43] MED LIST changes: -CRANBERRY500 M3 PO; -MIRALAX PA17 GM/Dose PO; -PROBIOTIC BLEN1 EACH PO
[2024-01-05] MEDS ORDERED: NS 1,000 ML IV ONE (17:30)
[2024-01-05 17:49] LABS: BASO % 0.4 % (0.0-2.0); EOS % 0.2 % (0.0-4.0); GRAN # 3.4 K/mm3 (1.4-6.5); GRAN % 72.1 % (42.2-75.2); HEMATOCRIT 37.1 % (42.0-52.0); HEMOGLOBIN 11.4 g/dl (13.5-18.0); LYMPH # 0.6 K/mm3 (1.2-3.4); LYMPH % 11.9 % (20.0-51.0); MEAN CELL VOLUME 83 fl (80.0-100.0); MEAN CORPUSCULAR HEMOGLOBIN 26 pg (27-31); MEAN CORPUSCULAR HGB CONC 31 g/dl (33.0-37.0); MONO # 0.7 K/mm3 (0.1-0.6); MONO % 14.6 % (1.7-9.3); PLATELET COUNT 101 K/mm3 (130-400); RED BLOOD COUNT 4.45 M/mm3 (4.20-5.60)
[2024-01-05 18:10] LABS: ALBUMIN 2.8 g/dL (3.4-4.8); BILIRUBIN,TOTAL 1.3 mg/dL (0.2-1.2); CALCIUM 8.4 mg/dL (8.4-10.2); CREATININE, serum 5.43 mg/dL (0.72-1.25); POTASSIUM 4.2 mEq/L (3.5-4.5); TOTAL PROTEIN 6.6 g/dl (6.2-8.1)
[2024-01-05 21:26] LABS: COLLECTION METHOD CLEAN CATCH
[2024-01-05 21:35] LABS: PH 6.5 (5.0-8.5); URINE APPEARANCE CLEAR (CLEAR/HAZY); URINE BLOOD 1+ (NEGATIVE); URINE COLOR Dark Yellow (YELLOW); URINE GLUCOSE 1+ (NEGATIVE); URINE KETONE TRACE (NEGATIVE); URINE NITRATE NEGATIVE (NEGATIVE); URINE PROTEIN(semi-quant) 2+ (NEGATIVE)
[2024-01-05 21:51] LABS: MUCOUS PRESENT (NOT PRESENT)
[2024-01-05 21:52] LABS: BUDDING YEAST PRESENT (NOT PRESENT); URINE BACTERIA MODERATE /hpf (NONE SEEN)
[2024-01-05] MEDS ORDERED: Albuterol 90 MCG/PUFF 8 GM MDI IH PRN (22:15)
[2024-01-05] MEDS ORDERED: Acetaminophen 325 MG TAB PO PRN (22:15)
[2024-01-05] MEDS ORDERED: dexAMETHasone 10 MG/ML VIAL IV SCH (22:30)
[2024-01-05 22:39] LABS: PROTHROMBIN TIME 10.6 SECONDS (9.7-12.8)
[2024-01-05 22:48] LABS: C-REACTIVE PROTEIN 7.35 mg/dL (0.00-0.50); MAGNESIUM 2.4 mg/dL (1.6-2.6)
[2024-01-05] MEDS ORDERED: Atorvastatin 10 MG TAB PO SCH (23:11)
[2024-01-05] MEDS ORDERED: Gabapentin 300 MG CAP PO SCH (23:14)
[2024-01-05] MEDS ORDERED: ALPRAZolam 0.25 MG TAB PO PRN (23:15)
[2024-01-05] MEDS ORDERED: Montelukast 10 MG TAB PO SCH (23:15)
[2024-01-05] MEDS ORDERED: VITAMIN D31000 I1 PO (23:19)
[2024-01-05] MEDS ORDERED: PROBIOTIC BLEN1 EACH PO (23:20)
[2024-01-05] MEDS ORDERED: CRANBERRY500 M3 PO (23:20)
[2024-01-05] MEDS ORDERED: MIRALAX PA17 GM/Dose PO (23:21)
[2024-01-05] MEDS ORDERED: SENOKOT S 50 MG1 TAB PO (23:22)
[2024-01-05] MEDS ORDERED: Sennosides/Docusate 8.6-50 MG TAB PO PRN (23:30)
[2024-01-05] MEDS ORDERED: Polyethylene Glycol 3350 17 GM PDS PO PRN (23:30)
[2024-01-05] MEDS ORDERED: LEVOFLOXACIN 750 MG/150 ML IV ONE (23:45)
[2024-01-06] VITALS (13 sets, daily range): BP systolic 115–153; BP diastolic 49–66; PULSE 59–76; TEMP 96.7–98.1
[2024-01-06] MEDS ORDERED: Meropenem 500 MG in Water For Injection,Sterile 10 ML IV SCH (01:00)
--- NOTE | 2024-01-06 01:54 | NUR ---
PATIENT ARRIVED TO ROOM 351 VIA BED FROM ED. WAS ABLE TO AMBULATE TO OUR BED WITH ASSIST X 1. PRESENTLY ON 2L O2 VIA NASAL CANNULA. HE IS ALERT AND ORIENTED X4. DENIES ANY PAIN AT THIS TIME. CALL LIGHT IS WITHIN REACH. BED IS LOCKED AND IN LOW POSITION.
[2024-01-06] MEDS ORDERED: Albuterol 90 MCG/PUFF 8 GM MDI IH SCH (02:00)
[2024-01-06 06:50] LABS: GRAN # 2.7 K/mm3 (1.4-6.5); GRAN % 88.4 % (42.2-75.2); HEMATOCRIT 37.8 % (42.0-52.0); HEMOGLOBIN 11.6 g/dl (13.5-18.0); LYMPH # 0.2 K/mm3 (1.2-3.4); LYMPH % 6.5 % (20.0-51.0); MEAN CELL VOLUME 83 fl (80.0-100.0); MEAN CORPUSCULAR HEMOGLOBIN 25 pg (27-31); MEAN CORPUSCULAR HGB CONC 31 g/dl (33.0-37.0); MEAN PLATELET VOLUME 10.3 fl (7.4-10.4); MONO # 0.1 K/mm3 (0.1-0.6); MONO % 4.5 % (1.7-9.3); RED BLOOD COUNT 4.57 M/mm3 (4.20-5.60); REDCELL DISTRIBUTION WIDTH-CV 16.8 % (11.5-14.5)
[2024-01-06 06:52] LABS: PLATELET COUNT 90 K/mm3 (130-400)
[2024-01-06 07:02] LABS: ALBUMIN 2.6 g/dL (3.4-4.8); BILIRUBIN,TOTAL 1.3 mg/dL (0.2-1.2); CALCIUM 8.2 mg/dL (8.4-10.2); CREATININE, serum 5.39 mg/dL (0.72-1.25); POTASSIUM 4.9 mEq/L (3.5-4.5); TOTAL PROTEIN 6.3 g/dl (6.2-8.1)
[2024-01-06] MEDS ORDERED: predniSONE 5 MG TAB PO SCH (08:00)
[2024-01-06] MEDS ORDERED: Patient's Own Medication Item PO SCH (09:00)
[2024-01-06] MEDS ORDERED: Amiodarone 200 MG TAB PO SCH (09:00)
[2024-01-06] MEDS ORDERED: Cholecalciferol (Vit D3) 1000 Units TAB PO SCH (09:00)
[2024-01-06] MEDS ORDERED: Heparin 1,000 UNITS/ML 10 ML Multi-Dose VIAL IV SCH (09:45)
--- NOTE | 2024-01-06 10:14 | NUR ---
PT RESTING IN BED, ALERT AND ORIENTEDX4. NO COMPLAINTS OF PAIN AT THIS TIME. ASSESSED PT. PT REPORTS FEELING OKAY WHILE SITTING BUT GETS WEAK WHEN WALKING. 2L OF O2 ON. PT HAS NO SHORTNESS OF BREATH. GAVE MORNING MEDS. PT DOES NOT HAVE HOME MEDS. STATES THAT SOMEONE WILL BRING IT IN FOR HIM LATER. NO OTHER COMPLAINTS AT THIS TIME. CALL LIGHT WITHIN REACH
[2024-01-06] MEDS ORDERED: Insulin Lispro (HumaLOG) SQ SCH (12:45)
--- NOTE | 2024-01-06 13:02 | NUR ---
parish worker was notified patient has COVID. Due to this, social and human services assistant contacted patient's via telephone to complete assessment. Naren, , P# [phone]. Patient and his live in [place]. PCP is Dr. Waters, Pharmacy is [facility], no issues affording medications. Patient's insurance is Medicare A and B and [facility] as secondary. DPOA-HC is Naren Magana. DME is CPAP but patient is not compliant with this and is looking at getting an inspire implanted. Scott has a walker, rollator, transport chair and electric mobile chair. Patient's reported she assists him with his ADLS but he is able to complete certain tasks when she is not present. She takes him to all appointments. Patient's reported she currently has COVID as well so she is unable to visit patient but her son is able to transport him home when ready for discharge depending on his work. Patient's expressed patient has felt weak and that was a main reason that he wanted to come to the hospital. OLU discussed home health due to patient stating he was weak. Patient previously had [facility] but graduated from their services. OLU explained PT would work with him here and see if he would need any additional rehab after leaving the hospital. Patient's understood. OLU provided the nursing station number so she could obtain medical updates. No further questions at this time. Discharge plan: Home pending PT and OT evaluations
--- NOTE | 2024-01-06 16:32 | NUR ---
Dialysis note Pt arrived to tx via wc. Uf goal of 1.0 kg and 1.0 kg removed. Pt tolerated tx well and dcd back to room via WC with complaints.
--- NOTE | 2024-01-06 21:58 | NUR ---
patient lying in bed, alert and oriented x4. denies chest pain and shortness of breath. RUE restriction with RF AV fistula. IV in LW is patent, site CDI. pt has no remarkable skin findings. fall precautions in place, call light within reach. pt has no further needs, questions or concerns at this time.
[2024-01-07 00:06] VITALS: BP_SYST 119
[2024-01-07 03:40] VITALS: BP 126/74; PULSE 58; TEMP 97.6
[2024-01-07 03:50] VITALS: BP_SYST 126
[2024-01-07 06:51] LABS: GRAN # 2.5 K/mm3 (1.4-6.5); GRAN % 79.3 % (42.2-75.2); HEMOGLOBIN 10.9 g/dl (13.5-18.0); LYMPH # 0.3 K/mm3 (1.2-3.4); LYMPH % 9.1 % (20.0-51.0); MEAN CELL VOLUME 80 fl (80.0-100.0); MEAN CORPUSCULAR HEMOGLOBIN 25 pg (27-31); MEAN CORPUSCULAR HGB CONC 31 g/dl (33.0-37.0); MEAN PLATELET VOLUME 9.2 fl (7.4-10.4); MONO # 0.4 K/mm3 (0.1-0.6); MONO % 11.3 % (1.7-9.3); PLATELET COUNT 109 K/mm3 (130-400); RED BLOOD COUNT 4.37 M/mm3 (4.20-5.60); REDCELL DISTRIBUTION WIDTH-CV 16.2 % (11.5-14.5)
[2024-01-07 07:11] LABS: ALBUMIN 2.6 g/dL (3.4-4.8); CALCIUM 8.4 mg/dL (8.4-10.2); CREATININE, serum 3.65 mg/dL (0.72-1.25); POTASSIUM 4.1 mEq/L (3.5-4.5); TOTAL PROTEIN 6.1 g/dl (6.2-8.1)
[2024-01-07 07:19] VITALS: BP 110/48; PULSE 66; TEMP 97.6
[2024-01-07] MEDS ORDERED: Glucagon 1 MG VIAL IM PRN (07:30)
[2024-01-07] MEDS ORDERED: Dextrose 50% Water 25 GM/50 ML SYRINGE IV PRN (07:30)
[2024-01-07] MEDS ORDERED: Dextrose (Glucose) 15 GM (4 x 3.75 GM) Chewable TABLET PACK PO PRN (07:30)
[2024-01-07] MEDS ORDERED: LEVOFLOXACIN 500 MG/100 ML IV SCH (09:00)
[2024-01-07 10:05] VITALS: BP_SYST 110
[2024-01-07 11:20] VITALS: BP 133/58; PULSE 62; TEMP 97.8
--- NOTE | 2024-01-07 14:25 | NUR ---
PATIENT IV AND TELE REMOVED. PATIENT HOME MED OF [facility] RETURNED, PAPERWORK SIGNED AND ON THE CHART. JB GIVEN DISCHARE INSTRUCTIONS AND EDUCATION. CALL LIGHT WITHIN REACH. JB AWAITING HIS FOR ENDOSCOPIC TECHNICIAN.
--- NOTE | 2024-01-07 14:45 | NUR ---
PATIENT TAKEN TO ER ENTRANCE VIA WHEELCHAIR BY PCT WHERE HE LEFT INSTABLE CONDITION WITH IS . PATIENT LEFT WITH HIS BELONGINGS AND HOME MED
== END 2024-01-07 15:00 | disposition home or self-care (01) | DRG 177 ==
LOC: COL.ER 16:44 → MEDICAL 22:28
PROVIDERS: Nurse Practitioner; Nurse Practitioner Family; ADMIT Internal Medicine
DX: U07.1 COVID-19 (principal); J96.01 Acute respiratory failure with hypoxia; N18.6 End stage renal disease; N39.0 Urinary tract infection, site not specified; D84.9 Immunodeficiency, unspecified; I48.91 Unspecified atrial fibrillation; E11.22 Type 2 diabetes mellitus with diabetic chronic kidney disease; E11.51 Type 2 diabetes mellitus with diabetic peripheral angiopathy without gangrene; M10.9 Gout, unspecified; G89.4 Chronic pain syndrome; D69.6 Thrombocytopenia, unspecified; D63.1 Anemia in chronic kidney disease; R53.81 Other malaise; I95.9 Hypotension, unspecified; I25.10 Atherosclerotic heart disease of native coronary artery without angina pectoris; I45.81 Long QT syndrome; E11.40 Type 2 diabetes mellitus with diabetic neuropathy, unspecified; G47.33 Obstructive sleep apnea (adult) (pediatric); Z99.2 Dependence on renal dialysis; Z88.1 Allergy status to other antibiotic agents; Z88.5 Allergy status to narcotic agent; Z88.8 Allergy status to other drugs, medicaments and biological substances; Z95.5 Presence of coronary angioplasty implant and graft; Z95.818 Presence of other cardiac implants and grafts; Z91.199 Patient's noncompliance with other medical treatment and regimen due to unspecified reason; Z79.82 Long term (current) use of aspirin; Z79.4 Long term (current) use of insulin; Z79.899 Other long term (current) drug therapy; Z87.891 Personal history of nicotine dependence; Z85.528 Personal history of other malignant neoplasm of kidney; Z90.5 Acquired absence of kidney; Z99.81 Dependence on supplemental oxygen
CPT/HCPCS: OP; G0378; J1100; J1644; J1815; J2185; J7030; J7512; Q3014

== ENCOUNTER 2024-03-01 22:09 | Inpatient (IN) | payer MEDICARE, OTHER ==
[~2024-03-01] VITALS: Ht 185.4 cm; Wt 110.2 kg
[~2024-03-01 22:09] MED LIST changes: +CRANBERRY500 M3 PO; +MIRALAX PA17 GM/Dose PO; +PROBIOTIC BLEN1 EACH PO
[2024-03-01 22:57] LABS: BASO % 0.3 % (0.0-2.0); EOS % 0.3 % (0.0-4.0); GRAN % 84.5 % (42.2-75.2); LYMPH # 0.7 K/mm3 (1.2-3.4); LYMPH % 7.2 % (20.0-51.0); MEAN CELL VOLUME 79 fl (80.0-100.0); MEAN CORPUSCULAR HGB CONC 31 g/dl (33.0-37.0); MEAN PLATELET VOLUME 9.5 fl (7.4-10.4); MONO # 0.6 K/mm3 (0.1-0.6); MONO % 6.5 % (1.7-9.3); PLATELET COUNT 238 K/mm3 (130-400); REDCELL DISTRIBUTION WIDTH-CV 16.6 % (11.5-14.5)
[2024-03-01 23:01] LABS: HEMATOCRIT 26.1 % (42.0-52.0); HEMOGLOBIN 8.1 g/dl (13.5-18.0); MEAN CORPUSCULAR HEMOGLOBIN 25 pg (27-31)
[2024-03-01 23:11] LABS: ALBUMIN 2.5 g/dL (3.4-4.8); BILIRUBIN,TOTAL 1.9 mg/dL (0.2-1.2); C-REACTIVE PROTEIN 19.3 mg/dL (0.00-0.50); CALCIUM 8.3 mg/dL (8.4-10.2); CREATININE, serum 5.23 mg/dL (0.72-1.25); POTASSIUM 4.8 mEq/L (3.5-4.5); TOTAL PROTEIN 6.3 g/dl (6.2-8.1)
[2024-03-01 23:17] LABS: ERYTHROCYTE SEDIMENTATION RATE 41 mm/hr (0-30)
[2024-03-02] VITALS (16 sets, daily range): BP systolic 97–128; BP diastolic 41–72; PULSE 55–87; TEMP 97.5–99.4
[2024-03-02] MEDS ORDERED: BACTRIM DS 8001 TAB PO (01:25)
[2024-03-02] MEDS ORDERED: Furosemide 100 MG/10 ML VIAL IV ONE (01:30)
[2024-03-02] MEDS ORDERED: Sennosides/Docusate 8.6-50 MG TAB PO PRN (01:30)
[2024-03-02] MEDS ORDERED: Polyethylene Glycol 3350 17 GM PDS PO PRN (01:30)
[2024-03-02 01:48] LABS: COLLECTION METHOD CLEAN CATCH
[2024-03-02 01:55] LABS: PH 6.5 (5.0-8.5); URINE APPEARANCE CLEAR (CLEAR/HAZY); URINE BLOOD 1+ (NEGATIVE); URINE COLOR Dark Yellow (YELLOW); URINE GLUCOSE TRACE (NEGATIVE); URINE KETONE TRACE (NEGATIVE); URINE NITRATE NEGATIVE (NEGATIVE); URINE PROTEIN(semi-quant) 1+ (NEGATIVE)
[2024-03-02] MEDS ORDERED: Acetaminophen 325 MG TAB PO PRN (02:30)
[2024-03-02 03:06] LABS: INR 1.2 (0.8-3.0); PROTHROMBIN TIME 13.2 SECONDS (9.7-12.8)
[2024-03-02] MEDS ORDERED: *Vancomycin Dosing Protocol IV SCH (03:15)
--- NOTE | 2024-03-02 03:16 | NUR ---
Vancomycin Initial Dosing Pharmacy Note Ordering provider: Olivia Gutierrez MD Indication/duration: UTI and necrotic toes x 7 days Relevant comorbidities: IDDM, ESRD dialysis MWF LABS: WBC = 9.5. X-ray at PCP uncertain if osteo involvement Recommendation: Will dose based on levels due to dialysis. Loading dose: 2.25 grams Maintenance dose: based on levels. Trough goal: 15-20 ug/mL
--- NOTE | 2024-03-02 03:54 | NUR ---
CRITICAL TROPONIN CALLED TO ANTONIA.
[2024-03-02] MEDS ORDERED: Dextrose 50% Water 25 GM/50 ML SYRINGE IV PRN (04:15)
[2024-03-02] MEDS ORDERED: Dextrose (Glucose) 15 GM (4 x 3.75 GM) Chewable TABLET PACK PO PRN (04:15)
[2024-03-02] MEDS ORDERED: Glucagon 1 MG VIAL IM PRN (04:15)
--- NOTE | 2024-03-02 04:38 | NUR ---
PATIENT BROUGHT TO FLOOR AT APPROXIMATELY 0345. PATIENT A&O X4. VSS. PATIENT HERE FOR INCREASED WEAKNESS, FALLS, AND NECROTIC TOES TO RIGHT FOOT. PATIENT DENIES ANY PAIN AT THIS TIME. BLOOD GLUCOSE TAKEN. PATIENT NPO FOR POSSIBLE SURGERY. PATIENT UNABLE TO ANSWER SOME QUESTIONS DURING INTAKE. PATIENT'S WC TAKEN HOME BY FROM ED. AMBROSIO FISTULA. RESTRICTION BRACELET APPLIED. DRESSING TO RIGHT FOOT REAPPLIED. CONSULTS FOR ORTHO AND CARDS. NO CARDIOLOGY COVERAGE UNTIL 03/03, ANTONIA AWARE. PATIENT DENIES ANY FURTHER CONCERNS. CALL LIGHT IN REACH. BED ALARM ON.
[2024-03-02] MEDS ORDERED: Vancomycin 1.25 GM,Special Dose/Pharmacy Prepared 1.25 GM in NS 250 ML IV ONE (05:00)
[2024-03-02] MEDS ORDERED: Insulin Lispro (HumaLOG) SQ SCH ×2 (06:00→08:00)
[2024-03-02 06:38] LABS: BASO % 0.3 % (0.0-2.0); EOS # 0.1 K/mm3 (0.0-0.7); EOS % 1.1 % (0.0-4.0); GRAN # 6.2 K/mm3 (1.4-6.5); GRAN % 78.6 % (42.2-75.2); LYMPH # 0.7 K/mm3 (1.2-3.4); LYMPH % 9.2 % (20.0-51.0); MEAN CELL VOLUME 78 fl (80.0-100.0); MEAN CORPUSCULAR HGB CONC 33 g/dl (33.0-37.0); MEAN PLATELET VOLUME 9.4 fl (7.4-10.4); MONO # 0.8 K/mm3 (0.1-0.6); MONO % 9.7 % (1.7-9.3); PLATELET COUNT 196 K/mm3 (130-400); RED BLOOD COUNT 3.02 M/mm3 (4.20-5.60); REDCELL DISTRIBUTION WIDTH-CV 16.5 % (11.5-14.5)
[2024-03-02 06:42] LABS: HEMATOCRIT 23.6 % (42.0-52.0); HEMOGLOBIN 7.7 g/dl (13.5-18.0); MEAN CORPUSCULAR HEMOGLOBIN 25 pg (27-31)
[2024-03-02 06:57] LABS: ALBUMIN 2.3 g/dL (3.4-4.8); BILIRUBIN,TOTAL 1.6 mg/dL (0.2-1.2); CALCIUM 7.5 mg/dL (8.4-10.2); CREATININE, serum 5.27 mg/dL (0.72-1.25); POTASSIUM 4.5 mEq/L (3.5-4.5); TOTAL PROTEIN 5.7 g/dl (6.2-8.1)
[2024-03-02] MEDS ORDERED: Heparin 5,000 UNITS/ML 1 ML VIAL SQ SCH (08:00)
--- NOTE | 2024-03-02 08:00 | NUR ---
CRITICAL LAB CALLED TO DR. BARBOSA, TROPONIN 0.231. NO NEW ORDERS PLACED AT THIS TIME. PAGED BROOK GONZALEZ FOR CONSULT.
[2024-03-02] MEDS ORDERED: predniSONE 5 MG TAB PO SCH (09:00)
[2024-03-02] MEDS ORDERED: Gabapentin 300 MG CAP PO SCH (09:00)
[2024-03-02] MEDS ORDERED: Cholecalciferol (Vit D3) 25 MCG (1,000 Units) TAB PO SCH (09:00)
[2024-03-02] MEDS ORDERED: Patient's Own Medication Item PO SCH (09:00)
--- NOTE | 2024-03-02 10:26 | NUR ---
SHIFT ASSESSMENT COMPLETED. PATIENT IS RESTING IN BED, DROWSEY BUT RESPONDS TO THIS NURSE WHEN ASKED QUESTIONS. PATIENT NPO STATUS FOR POSSIBLE SURGERY TODAY. PATIENTS BOTTOM IS RED WITH CRACKING AT THE TOP, BRUISING TO RT HIP/RT EYE/FOREHEAD HEALING, AND RT GREAT/3RD/4TH TOE BLACK AND GREEN IN COLOR. PATIENT REPORTS NO PAIN THIS AM. ALL MORNING MEDS GIVEN BY STUDENT NURSE. BED ALARM ON AND CALL LIGHT IN REACH.
[2024-03-02] MEDS ORDERED: Regadenoson 0.08 MG/ML 5 ML SYRINGE IV SCH (10:58)
[2024-03-02] MEDS ORDERED: Lidocaine PF 2% (20 MG/ML) 5 ML VIAL ONE (12:20)
[2024-03-02] MEDS ORDERED: fentaNYL 50 MCG/ML 2 ML VIAL ONE (12:20)
[2024-03-02] MEDS ORDERED: Midazolam 2 MG/2 ML VIAL ONE (12:20)
--- NOTE | 2024-03-02 14:54 | NUR ---
laundry worker spoke with patient's nurse and was notified it would be best to speak with his in regards to the assessment. laundry worker contacted patient's , Naren, P# [phone], to discuss discharge planning. Patient lives in [place] with his . PCP is Dr. Waters. Pharmacy is [facility]. No issues affording medications. Insurance is Medicare A and B and [employer]. DPOA-HC is on file appointing Naren Magana. Patient also has a healthcare directions stating patient's DPOA-HC has power to override his healthcare directions if they believe it is in patient's best interest. DME is a walker and power chair. Patient's assists with all ADLS at this time along with transportation to and from appointments. SW discussed home health, patient's stated he has had home health in the past through [facility] but she expressed if patient needed rehab in a facility, she would like [facility] as patient was there before and felt he did well with their services. OLU explained after patient's surgery he would work with PT and OT and they would be able to see how he does to give recommendations. Patient's understood. Discharge plan: Home with home health or SNF
[2024-03-02] MEDS ORDERED: ePHEDrine 50 MG/ML VIAL ONE (15:38)
[2024-03-02] MEDS ORDERED: D5 1/2 NS 1,000 ML IV SCH (16:45)
--- NOTE | 2024-03-02 16:51 | NUR ---
PATIENT ARRIVED TO FLOOR, BEDSIDE REPORT GIVEN BY ELISABETH MANE FROM PACU. PATIENT HAS SOFT WRAP AND LYNDA WRAP TO RT FOOT. PATIENT BROUGHT UP ON O2 NC AT 2L STATING AT 94%. PATIENT CURRENTLY SLEEPING RR 16. AT BEDSIDE. CALL LIGHT IN REACH AND BED ALARM ON
--- NOTE | 2024-03-02 20:57 | NUR ---
Patient assessed around 2014. Patient drowsy after surgery, but does awaken. Peripheral INT to left wrist. AV fistula to right forear. Denies SOB and dyspnea. LS CTA. On oxygen at 3 L/min via NC. HRI. Telemetry in place, A-fib, rate controlled. Dressing to right foot from 1st and 4th toe amputations are CDI. Voices no questions, needs, or concerns at this time. In bed with call light within reach. High fall risk precautions in place. Bed alarm on.
[2024-03-02] MEDS ORDERED: Montelukast 10 MG TAB PO SCH (21:00)
[2024-03-02] MEDS ORDERED: Atorvastatin 10 MG TAB PO SCH (21:00)
[2024-03-03] VITALS (19 sets, daily range): BP systolic 91–158; BP diastolic 40–80; PULSE 56–113; TEMP 97.7–98.8
[2024-03-03] MEDS ORDERED: ceFAZolin 2 G in Water For Injection,Sterile 20 ML IV SCH (00:35)
--- NOTE | 2024-03-03 06:03 | NUR ---
Patient has denied pain and discomfort this shift. On oxygen at 3 L/min via NC. Received IV ABX per orders. Dressing to right foot CDI. Voices no questions, needs, or concerns at this time. In bed with call light within reach. High fall risk precautions in place. Bed alarm on.
[2024-03-03 07:51] LABS: BASO % 0.2 % (0.0-2.0); EOS # 0.2 K/mm3 (0.0-0.7); EOS % 1.7 % (0.0-4.0); GRAN # 6.9 K/mm3 (1.4-6.5); GRAN % 79.9 % (42.2-75.2); LYMPH # 0.7 K/mm3 (1.2-3.4); MEAN CELL VOLUME 78 fl (80.0-100.0); MEAN CORPUSCULAR HGB CONC 32 g/dl (33.0-37.0); MEAN PLATELET VOLUME 9.2 fl (7.4-10.4); MONO # 0.8 K/mm3 (0.1-0.6); MONO % 9.3 % (1.7-9.3); PLATELET COUNT 204 K/mm3 (130-400); RED BLOOD COUNT 3.17 M/mm3 (4.20-5.60); REDCELL DISTRIBUTION WIDTH-CV 16.8 % (11.5-14.5)
[2024-03-03 07:53] LABS: HEMATOCRIT 24.7 % (42.0-52.0); HEMOGLOBIN 7.9 g/dl (13.5-18.0); MEAN CORPUSCULAR HEMOGLOBIN 25 pg (27-31)
[2024-03-03 08:16] LABS: ALBUMIN 2.3 g/dL (3.4-4.8); BILIRUBIN,TOTAL 1.6 mg/dL (0.2-1.2); CALCIUM 8.2 mg/dL (8.4-10.2); CREATININE, serum 5.73 mg/dL (0.72-1.25); POTASSIUM 4.6 mEq/L (3.5-4.5)
[2024-03-03] MEDS ORDERED: Heparin 1,000 UNITS/ML 10 ML Multi-Dose VIAL IV SCH (09:30)
[2024-03-03] MEDS ORDERED: NS 1,000 ML IV SCH (09:30)
--- NOTE | 2024-03-03 09:46 | NUR ---
PATIENT TO DIALYSIS VIA BED WITH CHART AND URINAL. NURSE AWARE OF PRIMARY NURSE NUMBER.
--- NOTE | 2024-03-03 09:58 | NUR ---
Dressing with LYNDA wrap on right heel and foot. Sensation present. No bowel movement for 7 days, active bowel sounds in all 4 Quadrant. Right posterior tibialis pulse palpated.
[2024-03-03] MEDS ORDERED: Amiodarone 200 MG TAB PO SCH (10:15)
[2024-03-03 11:32] LABS: HEMATOCRIT 25.3 % (42.0-52.0); HEMOGLOBIN 8.1 g/dl (13.5-18.0)
--- NOTE | 2024-03-03 12:11 | NUR ---
PATIENT ALERT AND ORIENTED X4. VSS. PATIENT HERE FOR WEAKNESS, NECROTIC TOES. PATIENT DENIES ANY PAIN AT THIS TIME. AM MEDS HELD DUE TO DIALYSIS. IV TO LEFT WRIST INT AND FLUSHES WELL. CALL LIGHT IN REACH. BED ALARM ON.
--- NOTE | 2024-03-03 13:03 | NUR ---
PATIENT RECEIVING ONE UNIT OF BLOOD WHILE IN DIALYSIS. INITIAL VITALS TAKEN, BLOOD VERIFIED WITH CHARGE NURSE. PATIENT IN ROOM WITH DIALYSIS NURSE.
--- NOTE | 2024-03-03 13:40 | NUR ---
Dialysis Note Pt arrived via bed. Uf goal set for 1.5 and increased to 2.1. I unit PRBC tranfused. pt tolerated well. Pt dcd back to room via bed without complaints.
--- NOTE | 2024-03-03 13:44 | NUR ---
pick and shovel worker attended interdisciplinary clinical rounding with Dr. Gutierrez. Dr. Gutierrez believes patient would benefit from SNF. Patient was currently in dialysis. SW left the Medicare.gov in patient's room. SW contacted patient's , Naren, to discuss recommendations from hospitalist. Naren is in agreement with SNF and stated patient had been mentioning that he may need rehab prior to hospitalization. First preferance is [facility] and second is [facility]. OLU secure emailed referral to [facility] and [facility] - PT and OT notes are currently pending as patient was in dialysis this morning. Discharge plan: SNF
[2024-03-03 15:37] LABS: HEMATOCRIT 27.9 % (42.0-52.0); HEMOGLOBIN 9.1 g/dl (13.5-18.0)
[2024-03-03] MEDS ORDERED: Insulin Lispro (HumaLOG) SQ SCH (21:00)
[2024-03-03] MEDS ORDERED: ceFAZolin 1 G in Water For Injection,Sterile 10 ML IV SCH (23:00)
--- NOTE | 2024-03-03 23:00 | NUR ---
Patient laying in bed, noted to be sleeping. Patient reports his pain is 2/10 around the site of his amputated right toes and also reports hematoma on tongue. Saltwater rinse given to patient for comfort. Right fistula noted, gauze covering site, clean dry and intact upon assessment. Left 20g IV present, IV flushed and infiltration noted after flushing. Plan for new IV placement. Patient educated to call if he needs help ambulating to the restroom, bed lowered and locked, call collins within reach.
[2024-03-04] VITALS (11 sets, daily range): BP systolic 97–148; BP diastolic 41–63; PULSE 59–70; TEMP 97.2–97.9
--- NOTE | 2024-03-04 06:59 | NUR ---
PATIENT IS SITTING UP IN BED, A&OX4. PATIENT DENIES ANY PAIN AT THE MOMENT. MORNING MEDICATIONS GIVEN, PATIENT TOLERATED WELL. RN ASSISTED PT WITH URINATING INTO URINAL. URINE NOTED TO BE CLEAR AND YELLOW. LEFT WRIST IV D/C'D D/T INFILTRATION. GRADY RN PLACED 22G IV IN RIGHT HAND. BED LOWERED AND LOCKED CALL CHONG WITHIN REACH.
[2024-03-04 07:31] LABS: BASO % 0.3 % (0.0-2.0); EOS % 0.3 % (0.0-4.0); GRAN # 6.5 K/mm3 (1.4-6.5); GRAN % 86.1 % (42.2-75.2); HEMATOCRIT 29.2 % (42.0-52.0); HEMOGLOBIN 9.4 g/dl (13.5-18.0); LYMPH # 0.4 K/mm3 (1.2-3.4); LYMPH % 4.9 % (20.0-51.0); MEAN CELL VOLUME 81 fl (80.0-100.0); MEAN CORPUSCULAR HEMOGLOBIN 26 pg (27-31); MEAN CORPUSCULAR HGB CONC 32 g/dl (33.0-37.0); MEAN PLATELET VOLUME 9.8 fl (7.4-10.4); MONO # 0.6 K/mm3 (0.1-0.6); MONO % 7.7 % (1.7-9.3); PLATELET COUNT 171 K/mm3 (130-400); REDCELL DISTRIBUTION WIDTH-CV 16.9 % (11.5-14.5)
[2024-03-04 07:52] LABS: ALBUMIN 2.1 g/dL (3.4-4.8); BILIRUBIN,TOTAL 1.6 mg/dL (0.2-1.2); CALCIUM 7.6 mg/dL (8.4-10.2); CREATININE, serum 3.5 mg/dL (0.72-1.25); POTASSIUM 4.3 mEq/L (3.5-4.5); TOTAL PROTEIN 5.8 g/dl (6.2-8.1)
--- NOTE | 2024-03-04 09:22 | NUR ---
PATIENT ALERT AND ORIENTED X4. VSS. PATIENT HERE FOR WEAKNESS/FALLS. PATIENT DENIES ANY PAIN AT THIS TIME. AM MEDS ADMINISTERED. PATIENT UP IN BED, EATING BREAKFAST. NO FURTHER NEEDS. CALL LIGHT IN REACH. BED ALARM ON.
--- NOTE | 2024-03-04 12:13 | NUR ---
D: Physician Advisor stopped by room on rounds. A: Pt was resting and content sitting in his chair by the window. Pt has no needs right now. P: Physician Advisor informed pt that if he needed anything from the limerock tower loader area to let his nurse know. Physician Advisor will follow up as needed.
--- NOTE | 2024-03-04 12:14 | NUR ---
ball worker secure emailed clinical updates to Rajendra at [facility] and Mary at [facility]. Discharge plan: SNF
--- NOTE | 2024-03-04 12:20 | NUR ---
OLU contacted Rajendra at [facility] whom reported they were still reviewing with the team. OLU explained patient's first preference is [facility]. Rajendra understood and would discuss with his team. Discharge plan: SNF
--- NOTE | 2024-03-04 13:00 | NUR ---
laundromat worker was notified [facility] is unable to accept patient.
[2024-03-04] MEDS ORDERED: Heparin 1,000 UNITS/ML 10 ML Multi-Dose VIAL IV SCH (19:15)
--- NOTE | 2024-03-04 19:35 | NUR ---
Patient asleep, sitting up in bed, bedside. No acute distress noted at this time. Patient denies any pain at the moment. Patient states he has not had a bowel movement since admission, doesnt not remember the last time he had one. 22g left hand IV present, noted to be dry clean and intact. IV flushed with no issue and IV antibiotic given with no issue. Night medications given. All treatment tolerated well. Bed lowered and locked, call collins within reach.
[2024-03-05] VITALS (13 sets, daily range): BP systolic 108–133; BP diastolic 56–74; PULSE 61–74; TEMP 97.4–97.7
--- NOTE | 2024-03-05 04:28 | NUR ---
Patient reports some back discomfort througout the night. Reposition every 2 hours for comfort. Patient refuses any pain medications at the moment. Morning medications given and tolerated with no issue. Patient placed back on 02 at 2L overnight. O2 sats noted to be at 90%. No BM overnight, patient is passing gas. Pt educated to call if he needs to use the restroom, bed lowered and locked, call collins within reach.
[2024-03-05 06:13] LABS: BASO % 0.1 % (0.0-2.0); EOS % 0.3 % (0.0-4.0); GRAN # 6.3 K/mm3 (1.4-6.5); LYMPH # 0.4 K/mm3 (1.2-3.4); LYMPH % 5.7 % (20.0-51.0); MEAN CELL VOLUME 79 fl (80.0-100.0); MEAN CORPUSCULAR HGB CONC 32 g/dl (33.0-37.0); MONO # 0.6 K/mm3 (0.1-0.6); MONO % 7.5 % (1.7-9.3); PLATELET COUNT 176 K/mm3 (130-400); REDCELL DISTRIBUTION WIDTH-CV 16.5 % (11.5-14.5)
[2024-03-05 06:18] LABS: HEMATOCRIT 29.2 % (42.0-52.0); HEMOGLOBIN 9.2 g/dl (13.5-18.0); MEAN CORPUSCULAR HEMOGLOBIN 25 pg (27-31)
[2024-03-05 06:28] LABS: CALCIUM 7.8 mg/dL (8.4-10.2); CREATININE, serum 4.1 mg/dL (0.72-1.25)
--- NOTE | 2024-03-05 07:04 | NUR ---
Bedside report received from ELISABETH Kemp and ELISABETH Bhakta. Pt awake in bed with no complaints. Call light within reach and fall precautions in place.
[2024-03-05] MEDS ORDERED: Fluconazole 100 MG TAB PO ONE (08:45)
[2024-03-05] MEDS ORDERED: Heparin 1,000 UNITS/ML 10 ML Multi-Dose VIAL IV SCH (10:15)
--- NOTE | 2024-03-05 11:22 | NUR ---
sheet metal worker supervisor secure emailed clinical updates to Shahid at [facility]. Shahid at [facility] expressed they were still working out if they could accept patient as they are trying to sort out the transportation for patient's dialysis. OLU confirmed with Dr. Gutierrez that patient is medically ready for discharge if placement is secured. OLU notified Shahid at [facility] of this information. discharge plan: SNF
--- NOTE | 2024-03-05 16:07 | NUR ---
log raft worker was notified [facility] is able to accept patient tomorrow after dialysis. SW notified patient of this information. Patient is in agreement. SW attempted to contact patient's , Naren to review IM from Medicare with her but no answer. SW left a detailed voicemail with patient's , Naren, in regards to discharge tomorrow and needing to complete the form with her. Discharge plan: [facility] - SNF 03/06/24
--- NOTE | 2024-03-05 16:17 | NUR ---
gospel worker received a call from Naren, patient's . OLU reviewed the IM from Medicare. Naren was beside with patient and Naren asked patient if he had any concerns about leaving the hospital. Patient felt comfortable leaving tomorrow to [facility]. OLU obtained verbal consent for the IM from Naren, [facility]. Patient stated over the phone that he wanted to make sure the facility knew he was requiring two person assist with transfers. OLU explained they have been receiving the updated notes but she would also call Rajendra at [facility]. No other concerns. OLU called Rajendra at [facility] whom is aware of patient's transfer needs. OLU explained patient would be ready to go tomorrow. Rajendra asked about dialysis time tomorrow, social service assistant explained she was uncertain right now but would get that to him during rounding tomorrow morning. Discharge plan: [facility] - [facility] 03/06/24
[2024-03-05] MEDS ORDERED: Lidocaine 4% Topical Patch TP SCH (16:30)
--- NOTE | 2024-03-05 16:49 | NUR ---
Pt has complaints of back pain rating 7/10. Pt requesting additonal medication with Tylenol. This nurse notified Dr. Gutierrez about pt complaints. Dr. Gutierrez gave TORB for Lidocaine patch 4% once a day.
--- NOTE | 2024-03-05 21:50 | NUR ---
Hand off completed with Angeline BARBER. Patient sitting up in bed, at bedside. No acute distress noted at this time. Denies bowel movement since admission. 22g left hand IV present, noted to be dry clean and intact. IV flushed with no issue and IV antibiotic given with no issue. Night medications given. All treatment tolerated well. Bed lowered and locked, call collins within reach.
[2024-03-06] VITALS (7 sets, daily range): BP systolic 109–126; BP diastolic 48–64; PULSE 62–69; TEMP 97.4–97.8
--- NOTE | 2024-03-06 03:54 | NUR ---
Patient c/o 7/10 pain located in his mouth/tongue. RN assess mouth, tongue sores and brusing note. Patient states his mouth is dry after waking up and the pain is much worse then. Patient given PRN Tylenol and ice chips given for comfort measures. Patient refused salt water swish and rinse at this time.
[2024-03-06] MEDS ORDERED: Lidocaine 4% Topical Patch TP SCH (09:00)
[2024-03-06] MEDS ORDERED: TYLENOL 500MG500 MG PO (09:03)
[2024-03-06] MEDS ORDERED: BLUE-EMU LIDOC1 EACH TP (09:04)
[2024-03-06] MEDS ORDERED: INSULIN HUMA100 U/ML SQ (09:08)
--- NOTE | 2024-03-06 10:14 | NUR ---
PATIENT ALERT AND ORIENTED X4. VSS. PATIENT HERE FOR WEAKNESS/NECROTIC TOES. DRESSING TO [facility]. PATIENT REPORTS MILD PAIN IN NECK AND BACK, REQUESTS PRN TYLENOL. IV TO LEFT HAND INT AND FLUSHES WELL. NO AM MEDS ADMINISTERED PATIENT IS TO RECEIVE DIALYSIS THIS AM. NO FURTHER NEEDS. CALL LIGHT IN REACH. BED ALARM ON.
--- NOTE | 2024-03-06 11:02 | NUR ---
PATIENT OFF OF FLOOR FOR DIALYSIS.
--- NOTE | 2024-03-06 12:47 | NUR ---
day worker attended interdisciplinary clinical rounding with Dr. Ribera. Patient is medically ready for discharge. [facility] was notified patient was currently a 4 person assist with transfers. OLU updated Rajendra from [facility] whom is going to notify their team and get back with the protective services social worker. 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 OLU notified patient's nurse. OLU secure emailed updates and orders to [facility]. OLU contacted patient's and notified her of the transportation time. OLU provided copy of IM to patient that was reviewed yesterday via telephone. DIscharge plan: [facility] - SNF
--- NOTE | 2024-03-06 16:56 | NUR ---
PATIENT DRESSED AND NEW DRESSING PLACED ON BOTTOM. PATIENT'S BELONGINGS GATHERED. REPORT CALLED TO [facility] AT [facility]. PATIENT PACKET GIVEN TO TRANSPORTER.
== END 2024-03-06 16:59 | DRG 255 ==
LOC: COL.ER 22:09 → SURG 03-02 00:56
PROVIDERS: Nurse Practitioner; Nurse Practitioner Family; Physician Assistant; ADMIT Internal Medicine
PROC: 0Y6P0Z0 Detachment at Right 1st Toe, Complete, Open Approach (ICD-10-PCS; 2024-03-02)
PROC: 0Y6V0Z0 Detachment at Right 4th Toe, Complete, Open Approach (ICD-10-PCS; 2024-03-02)
PROC: 5A1D70Z Performance of Urinary Filtration, Intermittent, Less than 6 Hours Per Day (ICD-10-PCS; principal; 2024-03-03)
DX: E11.52 Type 2 diabetes mellitus with diabetic peripheral angiopathy with gangrene (principal); J96.01 Acute respiratory failure with hypoxia; N18.6 End stage renal disease; M86.9 Osteomyelitis, unspecified; I96 Gangrene, not elsewhere classified; D84.9 Immunodeficiency, unspecified; N39.0 Urinary tract infection, site not specified; J81.1 Chronic pulmonary edema; J90 Pleural effusion, not elsewhere classified; E87.1 Hypo-osmolality and hyponatremia; I12.0 Hypertensive chronic kidney disease with stage 5 chronic kidney disease or end stage renal disease; Z94.0 Kidney transplant status; E11.69 Type 2 diabetes mellitus with other specified complication; E87.70 Fluid overload, unspecified; E87.8 Other disorders of electrolyte and fluid balance, not elsewhere classified; D63.1 Anemia in chronic kidney disease; G47.33 Obstructive sleep apnea (adult) (pediatric); R53.81 Other malaise; R79.89 Other specified abnormal findings of blood chemistry; E11.22 Type 2 diabetes mellitus with diabetic chronic kidney disease; I48.91 Unspecified atrial fibrillation; G89.4 Chronic pain syndrome; R29.6 Repeated falls; M10.9 Gout, unspecified; R94.31 Abnormal electrocardiogram [ECG] [EKG]; E11.40 Type 2 diabetes mellitus with diabetic neuropathy, unspecified; Z79.4 Long term (current) use of insulin; Z79.899 Other long term (current) drug therapy; Z85.520 Personal history of malignant carcinoid tumor of kidney; Z90.5 Acquired absence of kidney; Z95.818 Presence of other cardiac implants and grafts; Z87.891 Personal history of nicotine dependence; Z79.82 Long term (current) use of aspirin; Z95.5 Presence of coronary angioplasty implant and graft; Z99.2 Dependence on renal dialysis; Z91.158 Patient's noncompliance with renal dialysis for other reason; Z98.1 Arthrodesis status; Z79.620 Long term (current) use of immunosuppressive biologic; Z79.52 Long term (current) use of systemic steroids
CPT/HCPCS: A9284; A9500-JZ; J0688; J0690; J1644; J1815; J1940; J2250; J2704; J2785; J2795; J3010; J3370; J7030; J7050; J7512; P9016; Q3014